=== PATIENT | male | born 2000 | race Caucasian/White ===

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

== ENCOUNTER 2022-07-23 18:36 | Emergency (ER) | payer MEDICAID, SELFPAY ==
--- NOTE | 2022-07-23 18:37 | ED.SOB ---
HPI - SOB/Dyspnea General Chief Complaint: Upper Respiratory Infection Stated Complaint: chest, shortness of breath Time Seen by Provider: 07/23/22 18:37 Source: patient and RN notes reviewed History of Present Illness HPI Narrative: Patient is a 21-year-old male who presents the urgent care with his mother with complaints of shortness of breath and chest discomfort. Patient was seen at the emergency room and given naproxen and lorazepam. Patient was supposed to follow-up with his PCP for refills or start on new medications but has been unable to get in until this Friday. Patient had a full cardiac work-up which was negative. Chest x-ray and CT were both negative. Patient's EKG was normal. Discharge paperwork was presented at the facility. Patient states that he does feel some relief from lorazepam and has been using the naproxen for costochondritis. Patient denies of any new symptom onset. Mother states that he has been under a lot of life stress and has had difficulty with some anxiety. No other acute complaints. No acute distress noted. Patient and mother aware of the plan of care. Some parts of this dictation were generated by voice recognition software and may contain typographical and/or grammatical inaccuracies. Related Data Allergies Allergy/AdvReac Type Severity Reaction Status Date / Time No Known Allergies Allergy Verified 11/06/21 16:47 Review of Systems Review of Systems: CONSTITUTIONAL: Denies fever, chills, or sweats. EYES: Denies visual changes, redness, or discharge. ENT: Denies rhinorrhea, congestion, sore throat, or otalgia. CARDIOVASCULAR: Reports of chest discomfort intermittently RESPIRATORY: Reports of intermittent dyspnea not related to upper respiratory symptoms GASTROINTESTINAL: Denies abdominal pain, nausea, vomiting, or diarrhea. GENITOURINARY: Denies dysuria or hematuria. SKIN: Denies rash or itching. MUSCULOSKELETAL: Denies back pain, joint pain, or myalgia. NEUROLOGIC: Denies headache, numbness, or weakness. All other systems reviewed are negative, except as documented in HPI. [facility]LY [facility] Past Medical History Medical History (Updated 07/23/22 @ 18:58 by LES Simpson) Asthma Hx of migraines Orbital fracture right Seasonal allergies Social History Social History (Updated 11/08/21 @ 11:52 by Maeve Manjarrez NP) Smoking status: Never smoker Alcohol intake: unknown Substance use: unknown Gender identity (if verbalized by the patient): Male Comments At the time of my signature, I reviewed and agree with the nursing past medical, surgical, social, and family history. There is no relevant family history pertinent to the patient complaint. Exam Narrative: GENERAL: This is a well-nourished, well-developed patient, in no apparent distress. HEAD: normocephalic, atraumatic. EYES: PERRL. Sclera clear/white. Vision is grossly intact. EARS: External ears normal NOSE: External nose normal with no obvious nasal discharge, nares without redness, no rhinorrhea. THROAT: Mucous membranes moist NECK: Neck supple CARDIOVASCULAR: Mild reproducible pain to anterior chest with palpation. Regular rate and rhythm without murmurs, gallops, or rubs. RESPIRATORY: Clear to auscultation. Breath sounds equal bilaterally. No wheezes, rales, or rhonchi. SKIN: warm, intact with no suspicious lesions or rash, good texture and turgor. NEURO: awake, alert, and oriented to person, place and time. There were no obvious focal neurologic abnormalities. EXTREMITIES: No clubbing, cyanosis, or edema. Course Course Level of Care: Express Care Visit Vital Signs Vital signs: Vital Signs Temperature 98.3 F 07/23/22 18:42 Pulse Rate 80 07/23/22 18:42 Respiratory Rate 16 07/23/22 18:42 Blood Pressure 128/70 07/23/22 18:42 Pulse Oximetry 100 07/23/22 18:42 Oxygen Delivery Room Air 07/23/22 18:42 Temperature 98.3 F 07/23/22 18:42 Pulse Rate 80 07/23/22 18:42 Respiratory R
[2022-07-23 18:42] VITALS: BP 128/70; PULSE 80; RESP 16; TEMP 36.8; O2SAT 100
== END 2022-07-23 19:00 | disposition home or self-care (01) ==
PROVIDERS: Emergency Provider Nurse Practitioner Family; PCP Nurse Practitioner Family
DX: F41.9 Anxiety disorder, unspecified (principal); J45.909 Unspecified asthma, uncomplicated
CPT/HCPCS: 99213; G0463

== ENCOUNTER 2023-02-06 12:23 | Emergency (ER) | payer OTHER, SELFPAY ==
--- NOTE | 2023-02-06 12:28 | ED.MALEGU ---
HPI - Male Genitourinary General Chief complaint: Urogenital-Male Stated complaint: Burning on end of penis Time Seen by Provider: 02/06/23 12:28 Source: patient and RN notes reviewed History of Present Illness HPI Narrative: Patient is a 22-year-old male who presents to urgent care with complaints of burning at the tip of his penis. Patient states he has had this happen in the past when he uses Dial soap directly to the end of the penis. Patient states that there is now irritation just rubbing on his boxers and his jeans. Patient does have sexual partners and is concerned about STDs. States that he has not been told of any known exposures. Denies any blood in the urine, dysuria, frequency urgency. Denies any penile discharge. No other acute complaints. No acute distress noted. Patient aware of the plan of care. Some parts of this dictation were generated by voice recognition software and may contain typographical and/or grammatical inaccuracies. Related Data Home Medications Medication Instructions Recorded Confirmed No Home Medications 02/06/23 02/06/23 Allergies Allergy/AdvReac Type Severity Reaction Status Date / Time No Known Allergies Allergy Verified 02/06/23 12:41 Review of Systems Review of Systems: CONSTITUTIONAL: Denies fever, chills, or sweats. EYES: Denies visual changes, redness, or discharge. ENT: Denies rhinorrhea, congestion, sore throat, or otalgia. CARDIOVASCULAR: Denies chest pain, palpitations, or edema. RESPIRATORY: Denies cough or dyspnea. GASTROINTESTINAL: Denies abdominal pain, nausea, vomiting, or diarrhea. GENITOURINARY: Denies dysuria or hematuria. Reports of pain to the tip of the penis SKIN: Denies rash or itching. MUSCULOSKELETAL: Denies back pain, joint pain, or myalgia. NEUROLOGIC: Denies headache, numbness, or weakness. All other systems reviewed are negative, except as documented in HPI. FORMERLY [facility] Past Medical History Medical History (Updated 02/06/23 @ 13:12 by LES Simpson) Asthma Hx of migraines Orbital fracture right Seasonal allergies Social History Social History (Updated 11/08/21 @ 11:52 by Maeve Manjarrez NP) Smoking status: Never smoker Alcohol intake: unknown Substance use: unknown Living arrangements: with family Gender identity (if verbalized by the patient): Male Comments At the time of my signature, I reviewed and agree with the nursing past medical, surgical, social, and family history. There is no relevant family history pertinent to the patient complaint. Exam Narrative: GENERAL: This is a well-nourished, well-developed patient, in no apparent distress. HEAD: normocephalic, atraumatic. EYES: PERRL. Sclera clear/white. Vision is grossly intact. EARS: External ears normal NOSE: External nose normal with no obvious nasal discharge, nares without redness, no rhinorrhea. THROAT: Mucous membranes moist, posterior pharynx clear. NECK: Neck supple SKIN: warm, intact with no suspicious lesions or rash, good texture and turgor. : Deferred exam NEURO: awake, alert, and oriented to person, place and time. There were no obvious focal neurologic abnormalities. EXTREMITIES: No clubbing, cyanosis, or edema. Course Course Level of Care: Express Care Visit Vital Signs Vital signs: Vital Signs Temperature 99.0 F 02/06/23 12:32 Pulse Rate 84 02/06/23 12:32 Respiratory Rate 16 02/06/23 12:32 Blood Pressure 139/64 02/06/23 12:32 Pulse Oximetry 99 02/06/23 12:32 Oxygen Delivery Room Air 02/06/23 12:32 Temperature 99.0 F 02/06/23 12:32 Pulse Rate 84 02/06/23 12:32 Respiratory Rate 16 02/06/23 12:32 Blood Pressure 139/64 02/06/23 12:32 Pulse Oximetry 99 02/06/23 12:32 Oxygen Delivery Room Air 02/06/23 12:32 Reviewed MDM - Male Genitourinary MDM Narrative Medical decision making narrative: Reviewed lab results with the patient. He is aware that urinalysis is not indicative of urina
[2023-02-06 12:32] VITALS: BP 139/64; PULSE 84; RESP 16; TEMP 37.2; O2SAT 99
== END 2023-02-06 13:18 | disposition home or self-care (01) ==
PROVIDERS: Emergency Provider Nurse Practitioner Family
DX: R30.0 Dysuria (principal); J45.909 Unspecified asthma, uncomplicated
CPT/HCPCS: 81003; 87491; 87591; 87661; 99213; G0463

== ENCOUNTER 2023-09-02 09:20 | Emergency (ER) | payer BC, SELFPAY ==
[2023-09-02 09:31] VITALS: BP 143/65; PULSE 68; RESP 16; TEMP 36.5; O2SAT 98
--- NOTE | 2023-09-02 09:44 | ED.GENADULT ---
HPI - General Adult General Chief complaint: Upper Respiratory Infection Stated complaint: Cough/Fatigue Source: patient Mode of arrival: ambulatory Limitations: no limitations History of Present Illness HPI narrative: Patient presents for evaluation of cough. Three days ago he developed a hoarse voice and later developed productive cough of brown sputum. He has some mild shortness of breath. No fever, chills, nausea, vomiting, sore throat or otalgia. No recent sick contacts to his knowledge. He is not taking any medications to assist with his symptoms. Related Data Allergies Allergy/AdvReac Type Severity Reaction Status Date / Time No Known Allergies Allergy Verified 02/06/23 12:41 Review of Systems Review of Systems: CONSTITUTIONAL: Denies fever, chills, or sweats. EYES: Denies visual changes, redness, or discharge. ENT: Reports hoarse voice . Denies rhinorrhea, congestion, sore throat, or otalgia. CARDIOVASCULAR: Denies chest pain, palpitations, or edema. RESPIRATORY: Reports productive cough of brown sputum with mild SOB. GASTROINTESTINAL: Denies abdominal pain, nausea, vomiting, or diarrhea. GENITOURINARY: Denies dysuria or hematuria. SKIN: Denies rash or itching. MUSCULOSKELETAL: Denies back pain, joint pain, or myalgia. NEUROLOGIC: Denies headache, numbness, dizziness, or weakness. PSYCHIATRIC: Denies anxiety or depression. [facility] Past Medical History Medical History Asthma Hx of migraines Orbital fracture right Seasonal allergies Surgical History Surgical History (Reviewed 09/02/23 @ 10:16 by Jason Ford [facility], ) No pertinent past surgical history Family History Family History (Reviewed 09/02/23 @ 10:16 by Jason Ford [facility], ) Mother Family history non-contributory Social History Social History (Reviewed 09/02/23 @ 10:16 by Jason Ford [facility], ) Smoking status: Never smoker Alcohol intake: unknown Substance use: unknown Living arrangements: with family Gender identity (if verbalized by the patient): Male Exam Narrative: GENERAL: Well-appearing, well-nourished, and in no acute distress. HEAD: Normocephalic, atraumatic. EYES: PERRLA and EOMI. ENT: Nares clear, no rhinorrhea or epistaxis. Mucous membranes moist. Oropharynx without tonsillar hypertrophy exudate or other lesions. Bilateral TMs pearly chery nonbulging NECK: Supple. No adenopathy or masses. No carotid bruits or JVD CHEST: Clear to auscultation. No respiratory distress. No wheezes rales or rhonchi HEART: Regular rate and rhythm. No murmur heard. Normal peripheral pulses. ABDOMEN: Soft, nontender, nondistended, normal active bowel sounds. EXTREMITIES: Normal range of motion. No edema. SKIN: Warm, dry, no rash. NEURO: No focal deficits. Alert and oriented x3. PSYCH: Normal mood and affect. Course Course Emergency Course: This is a 23-year-old male who presented for evaluation of sick symptoms. COVID, influenza, strep were all negative. Exam is consistent with acute viral syndrome. Will discharge with Mucinex DM. Increase hydration. Follow up with primary provider. Go to the ER for worsening symptoms. Patient in agreement with plan of care. Level of Care: Express Care Visit Vital Signs Vital signs: Vital Signs Temperature 36.5 C 09/02/23 09:31 Pulse Rate 68 09/02/23 09:31 Respiratory Rate 16 09/02/23 09:31 Blood Pressure 143/65 H 09/02/23 09:31 Pulse Oximetry 98 09/02/23 09:31 Oxygen Delivery Room Air 09/02/23 09:31 Temperature 36.5 C 09/02/23 09:31 Pulse Rate 68 09/02/23 09:31 Respiratory Rate 16 09/02/23 09:31 Blood Pressure 143/65 H 09/02/23 09:31 Pulse Oximetry 98 09/02/23 09:31 Oxygen Delivery Room Air 09/02/23 09:31 Medical Decision Making Vital Signs Vital Signs: Vital Signs Temperature 36.5 C 09/02/23 09:31 Pulse Rate 68 09/02/23 09:31 Resp
== END 2023-09-02 10:16 | disposition home or self-care (01) ==
PROVIDERS: Emergency Provider Nurse Practitioner; PCP Nurse Practitioner Family
DX: J06.9 Acute upper respiratory infection, unspecified (principal); Z20.822 Contact with and (suspected) exposure to COVID-19; J45.909 Unspecified asthma, uncomplicated
CPT/HCPCS: 87081; 87426; 87804; 87880; 99213; C9803; G0463

== ENCOUNTER 2023-10-18 13:57 | Emergency (ER) | payer BC, SELFPAY ==
[2023-10-18 14:01] VITALS: BP 146/81; PULSE 95; RESP 16; TEMP 37.2; O2SAT 98
--- NOTE | 2023-10-18 14:08 | ED.GENADULT ---
HPI - General Adult General Chief complaint: Upper Respiratory Infection Stated complaint: Sore Throat Time Seen by Provider: 10/18/23 14:12 Source: patient, RN notes reviewed and old records reviewed Mode of arrival: ambulatory Limitations: no limitations History of Present Illness HPI narrative: 23-year-old male presents to [facility] Care with complaint of sore throat for 1 week patient also states has slight cough and sinus congestion. Patient denies shortness of breath, weakness, chest pain, vomiting, dizzines MD complaint: sore throat Onset (ago): day(s) (7) Related Data Allergies Allergy/AdvReac Type Severity Reaction Status Date / Time No Known Allergies Allergy Verified 10/18/23 14:09 Review of Systems Constitutional: Constitutional: Reports no additional constitutional complaints, Denies body ache(s), Denies chills, Denies fever(s) and Denies headache(s) Eyes: Eyes: Reports no additional eye complaints ENT: Reports as per HPI, Reports nasal congestion and Reports sore throat Cardiovascular: Cardiovascular: Reports no additional cardiovascular complaints Respiratory: Respiratory: Reports as per HPI, Reports cough, Denies pain with cough and Denies dyspnea Gastrointestinal: Gastrointestinal: Reports no additional gastrointestinal complaints Neurologic: Reports system reviewed and no additional complaints, except as documented PMFSH Past Medical History Medical History Asthma Hx of migraines Orbital fracture right Seasonal allergies Surgical History Surgical History No pertinent past surgical history Family History Family History Mother Family history non-contributory Social History Social History Smoking status: Never smoker Alcohol intake: unknown Substance use: unknown Living arrangements: with family Gender identity (if verbalized by the patient): Male Comments At the time of my signature, I reviewed and agree with the nursing past medical, surgical, social, and family history. There is no relevant family history pertinent to the patient complaint. Exam Const: General: cooperative, healthy appearing, no acute distress and well nourished Nutritional Appearance: well nourished Orientation/consciousness: patient oriented x3 Limitations: no limitations HENMT: Head: normal to inspection and normocephalic Ears: external ears normal, TM's normal bilaterally, mastoids normal and Abnormal EAC present Face/Nose/Sinus: normal facial exam Face and sinus: normal facial exam Mouth: Yes Normal oral and palatal mucosa present, Yes oropharynx normal and Yes moist mucous membranes Throat: abnormal tonsil bilateral erythema, exudates and hypertrophy, no peritonsillar masses, posterior oropharynx abnormal erythema and exudates and no uvular edema Eyes: General: appearance normal, both eyes and all related structures Sclera: sclerae normal Pupils: Equal, round and reactive pupils present Resp: Effort & Inspection: normal respiratory effort, able to speak in complete sentences, no audible wheezes, no cough, no respiratory distress and no retractions Auscultation: clear to auscultation bilaterally, no crackles, no rales, no rhonchi and no wheezes Cardio: Rate: regular rate Rhythm: regular rhythm Skin: General skin exam: normal color and no rashes or lesions noted Neuro: General: patient oriented x3 Cranial nerves: Yes Equal, round and reactive pupils present Psych: Appearance: grossly normal Course Course Emergency Course: Some parts of this dictation were generated by voice recognition software and may contain typographical and/or grammatical inaccuracies. Level of Care: Express Care Visit Vital Signs Vital signs: Vital Signs Temperature 99 F 10/18/23 1
== END 2023-10-18 14:30 | disposition home or self-care (01) ==
PROVIDERS: Emergency Provider Registered Nurse; PCP Nurse Practitioner Family
DX: J02.0 Streptococcal pharyngitis (principal); J45.909 Unspecified asthma, uncomplicated
CPT/HCPCS: 87081; 87880; 99213; G0463

== ENCOUNTER 2023-11-15 18:49 | Emergency (ER) | payer BC, SELFPAY ==
[2023-11-15 18:55] VITALS: BP 141/67; PULSE 100; RESP 16; TEMP 36.1; O2SAT 97
--- NOTE | 2023-11-15 19:35 | ED.GENADULT ---
HPI - General Adult General Chief complaint: Upper Respiratory Infection Stated complaint: Cough/Sore Throat/Fever Source: patient Mode of arrival: ambulatory Limitations: no limitations History of Present Illness HPI narrative: Patient presents for evaluation of sick symptoms that started yesterday. Symptoms include subjective fever, chills, headache, sore throat productive cough brown sputum, pleuritic chest pain and nausea. No vomiting, diarrhea or SOB. No recent sick contacts to his knowledge. He took mucinex for his symptoms. He does not smoke. Related Data Allergies Allergy/AdvReac Type Severity Reaction Status Date / Time No Known Allergies Allergy Verified 11/15/23 19:04 Review of Systems Review of Systems: CONSTITUTIONAL: Reports fever and chills. EYES: Denies visual changes, redness, or discharge. ENT: Reports sore throat and sinus congestion CARDIOVASCULAR: Reports pleuritic chest pain. Denies chest pain otherwise. Denies palpitations, or edema. RESPIRATORY: Reports cough. Denies SOB. GASTROINTESTINAL: Reports nausea. Denies abdominal pain, vomiting, or diarrhea. GENITOURINARY: Denies dysuria or hematuria. SKIN: Denies rash or itching. MUSCULOSKELETAL: Reports generalized body aches. NEUROLOGIC:Reports headache. Denies numbness, dizziness, or weakness. PSYCHIATRIC: Denies anxiety or depression. PMFSH Past Medical History Medical History Asthma Hx of migraines Orbital fracture right Seasonal allergies Surgical History Surgical History No pertinent past surgical history Family History Family History Mother Family history non-contributory Social History Social History Smoking status: Never smoker Alcohol intake: unknown Substance use: unknown Living arrangements: with family Gender identity (if verbalized by the patient): Male Exam Narrative: GENERAL: Well-appearing, well-nourished, and in no acute distress. HEAD: Normocephalic, atraumatic. EYES: PERRLA and EOMI. ENT: Nares clear, no rhinorrhea or epistaxis. Mucous membranes moist. Oropharynx without tonsillar hypertrophy exudate or other lesions. Bilateral TMs pearly chery nonbulging NECK: Supple. No adenopathy or masses. No carotid bruits or JVD CHEST: Clear to auscultation. No respiratory distress. No wheezes rales or rhonchi HEART: Regular rate and rhythm. No murmur heard. Normal peripheral pulses. ABDOMEN: Soft, nontender, nondistended, normal active bowel sounds. EXTREMITIES: Normal range of motion. No edema. SKIN: Warm, dry, no rash. NEURO: No focal deficits. Alert and oriented x3. PSYCH: Normal mood and affect. Course Course Emergency Course: This is a 23-year-old male who presented for evaluation of sick symptoms since yesterday. Influenza A positive. Will treat with Tamiflu. Zofran and Tessalon for symptom management. Increase hydration. Follow up with primary provider. Go to the ER for worsening symptoms. Patient in agreement with plan of care. Level of Care: Express Care Visit Vital Signs Vital signs: Vital Signs Temperature 36.1 C L 11/15/23 18:55 Pulse Rate 100 11/15/23 18:55 Respiratory Rate 16 11/15/23 18:55 Blood Pressure 141/67 H 11/15/23 18:55 Pulse Oximetry 97 11/15/23 18:55 Oxygen Delivery Room Air 11/15/23 18:55 Temperature 36.1 C L 11/15/23 18:55 Pulse Rate 100 11/15/23 18:55 Respiratory Rate 16 11/15/23 18:55 Blood Pressure 141/67 H 11/15/23 18:55 Pulse Oximetry 97 11/15/23 18:55 Oxygen Delivery Room Air 11/15/23 18:55 Medical Decision Making Vital Signs Vital Signs: Vital Signs Temperature 36.1 C L 11/15/23 18:55 Pulse Rate 100 11/15/23 18:55 Respiratory Rate 16 11/15/23 18:55
== END 2023-11-15 19:35 | disposition home or self-care (01) ==
PROVIDERS: Emergency Provider Nurse Practitioner; PCP Nurse Practitioner Family
DX: J10.1 Influenza due to other identified influenza virus with other respiratory manifestations (principal); J02.0 Streptococcal pharyngitis; B95.0 Streptococcus, group A, as the cause of diseases classified elsewhere; Z20.822 Contact with and (suspected) exposure to COVID-19; J45.909 Unspecified asthma, uncomplicated
CPT/HCPCS: 87081; 87147; 87426; 87804; 87880; 99213; C9803; G0463

== ENCOUNTER 2024-08-04 08:06 | Outpatient (CLI) | payer BC, SELFPAY ==
[2024-08-04 08:42] LABS: Hematocrit 42.3 % (42.0-52.0); Mean Corpuscular HGB Conc 35.5 g/dl (32-36); Mean Corpuscular Hemoglobin 31.4 pg (26-34); Mean Corpuscular Volume 88.7 fl (80-100); Platelet Count Result 224 k/mm3 (150-375); Red Blood Count 4.77 M/mm3 (4.6-6.20); Red Cell Distribution Width 11.5 % (11.5-14.5); White Blood Count 5.2 K/mm3 (4.5-10.0)
[2024-08-04 08:59] LABS: Alanine Aminotransferase 24 U/L (6-50); Albumin Level 4.3 g/dL (3.5-5.1); Alkaline Phosphatase 46 U/L (38-126); Anion Gap 8 mmol/L (4-12); Aspartate Amino Transferase 15 U/L (17-59); Bilirubin,Total 0.7 mg/dL (0.2-1.3); Blood Urea Nitrogen 11 mg/dL (9-20); Calcium 9.2 mg/dL (8.4-10.2); Carbon Dioxide 28 mmol/L (22-30); Chloride 103 mmol/L (98-107); Cholesterol 106 mg/dL (0-200); Estimated Glomerular Filt Rate > 60; Glucose 91 mg/dL (65-110); HDL Direct 43 mg/dL; Potassium 4.3 mmol/L (3.4-5.0); Sodium 139 mmol/L (137-145); Triglycerides 59 mg/dL (<150)
[2024-08-04 09:10] LABS: LDL Cholesterol Direct 49 mg/dL
[2024-08-04 09:17] LABS: Vitamin D 25 Hydroxy 57.6 ng/mL
== END 2024-08-04 08:07 | disposition home or self-care (01) ==
PROVIDERS: PCP Emergency Medicine; Visit Provider Emergency Medicine
DX: Z13.0 Encounter for screening for diseases of the blood and blood-forming organs and certain disorders involving the immune mechanism (principal); Z13.220 Encounter for screening for lipoid disorders; Z13.21 Encounter for screening for nutritional disorder
CPT/HCPCS: 36415; 80053; 80061; 82306; 85027

== ENCOUNTER 2024-10-13 13:10 | Emergency (ER) | payer BC, SELFPAY ==
[2024-10-13 13:19] VITALS: BP 129/66; PULSE 97; RESP 20; TEMP 37.4; O2SAT 96
--- NOTE | 2024-10-13 13:29 | ED_ITS ---
HPI - URI/Sore Throat General Chief Complaint: Upper Respiratory Infection Stated Complaint: cough/chest congestion/sinus Time Seen by Provider: 10/13/24 13:26 Source: patient and RN notes reviewed Mode of arrival: ambulatory Limitations: no limitations History of Present Illness HPI Narrative: 24-year-old male presents with concern for cough, sore throat, postnasal drainage, body ache, headaches, chills, sweats for 5 days. He denies known sick contacts. He took Alejandra NARVAEZ elicited complaint: cough and sore throat Related Data Allergies Allergy/AdvReac Type Severity Reaction Status Date / Time No Known Allergies Allergy Verified 07/06/24 09:08 Review of Systems Review of Systems: CONSTITUTIONAL: Reports malaise, chills, sweats. Denies fever. EYES: Denies visual changes, redness, or discharge. ENT: Reports rhinorrhea, congestion, and sore throat. CARDIOVASCULAR: Denies chest pain, palpitations, or edema. RESPIRATORY: Reports cough. Denies dyspnea. GASTROINTESTINAL: Denies abdominal pain, nausea, vomiting, diarrhea SKIN: Denies rash or itching. MUSCULOSKELETAL: Reports myalgia. NEUROLOGIC: Reports headache. All systems reviewed & are unremarkable except as noted in HPI and below PMFSH Past Medical History Medical History Asthma Hx of migraines Orbital fracture right Seasonal allergies Surgical History Surgical History No pertinent past surgical history Family History Family History Mother Family history non-contributory Social History Social History Smoking status: Current every day smoker Tobacco type: e-cigarettes/vaping Alcohol intake: current Drinks per week: 3 Alcohol use details: beer Substance use: never Do You Feel Safe in your Home?: Yes Lack of Transportation: No Lack of Food: Never True Current Housing: I Have Housing Concerned About Future Housing: No Difficulty Paying Gas/Electric Bills: No Difficulty Paying for Meds: No Currently Unemployed: No Education: High School Diploma/GED Difficulty w/ Childcare or Family Care: No Living arrangements: with family Gender identity (if verbalized by the patient): Male Comments At time of signature, agree with nursing past medical, surgical, social and family history. There is no relevant family history pertinent to the presenting complaint Exam Narrative: GENERAL: Well-appearing, well-nourished, and in no acute distress. HEAD: Normocephalic EYES: PERRLA, conjunctivae clear ENT: Nares clear. Mucous membranes moist. TM pearly chery with sharp light reflex bilaterally; no tragal tenderness. Oropharynx not erythematous without lesions. Tonsils not enlarged and without exudate, no drooling, no hoarseness, no trismus, uvula midline. NECK: Supple. No lymphadenopathy CHEST: Clear to auscultation, breath sounds equal. No wheezing, rhonchi, rales, or stridor. No respiratory distress, speaks in full sentences. HEART: Regular rate and rhythm. No murmur heard. SKIN: Warm, dry, no rash. NEURO: Alert and oriented x3. PSYCH: Normal mood and affect Course Course Emergency Course: Patient is aware of diagnosis, understands and agrees to treatment plan. Anticipatory guidance given. Patient agrees to follow-up as directed and is aware of reasons to seek care at the emergency department. Portions of this record may have been created with voice recognition software Level of Care: Express Care Visit Vital Signs Vital signs: Vital Signs Temperature 99.3 F 10/13/24 13:19 Pulse Rate 97 10/13/24 13:19 Respiratory Rate 20 10/13/24 13:19 Blood Pressure 129/66 10/13/24 13:19 Pulse Oximetry 96 10/13/24 13:19 Oxygen Delivery Room Air 10/13/24 13:19 Temperature 99.3 F 10/13/24 13:19 Pulse Rate 97 10/13/24 13:19 Respiratory Rate 20 10/13/24 13:19 Blood Pressure 129/66 10/13/24 13:19 Pulse Oximetry 96 10/13/24 13:19 Oxygen Delivery Room Air 10/13/24 13:19 Reviewed. MDM - URI/Sore Throat MDM Narrative Medical decision making narrative: Differential diagnosis considered: Arshad virus, strep pharyngitis, allergic rhinitis, upper respiratory tract infection, sinusitis, rhinosinusitis, nasopharyngitis. viral pharyngitis, otitis media, otitis externa, pneumonia, bronchitis, viral cough syndrome, viral syndrome, and influenza. Exam findings show no acute concerns or changes; patient is non-toxic appearing and is in no distress. Patient is appropriate for outpatient treatment and follow-up. Lab Data Attestation: I reviewed the patient's lab results. Critical Care Time Critical Care Time Critical Care Time: No Discharge Plan Discharge Clinical Impression: Upper respiratory infection Patient Disposition: Home, Self-Care Condition: Stable Instructions: Upper Respiratory Infection (ED) Additional Instructions: Your rapid strep swab was negative today at [facility]. A throat culture will be sent to the laboratory for further testing. If the test is positive, you will receive a phone call within 48 hours and an appropriate antibiotic will be initiated at that time. Your symptoms are likely due to a viral illness, which is not treated with antibiotics. Viral symptoms can be present for up to a few weeks. -Alternate Tylenol and Motrin per package directions for fever or pain. -Antihistamine medication such as Benadryl at night and Zyrtec during the day can help improve symptoms. -Eat and drink things that are easy to swallow, like tea or soup, or popsicles to suck on. -Oral rinses such as: Salt water gargles and/or may use topical anesthetic (eg. Chloraseptic spray) or lozenges to relieve dryness or throat pain). -Frequent hand washing or hand drafter (cad) electrical is one of the best ways to prevent spread of infection. -Follow up with primary care provider in 2-3 days if condition is not improving; or seek ER visit if you have trouble breathing, cannot drink enough fluids, have muffled voice, difficulty opening your mouth, or severe swelling. Prescriptions: New pseudoephedrine HCl [12 Hour Decongestant] 120 mg tablet extended release 120 mg PO Q12H PRN (Reason: nasal congestion) Qty: 20 0RF ipratropium bromide 21 mcg (0.03 %) spray,non-aerosol 2 spray NASAL TID PRN (Reason: nasal drainage) Qty: 30 0RF Rx Instructions: administer into each nostril Follow-up/Referrals: Otis Rhodes MD [Primary Care Provider] - Stand Alone Forms: Work/School Release IP Time of Disposition: 13:47
[2024-10-13 13:46] LABS: EDSTREPNEGPOS1 Negative (Negative)
== END 2024-10-13 13:57 | disposition home or self-care (01) ==
PROVIDERS: Emergency Provider Nurse Practitioner; PCP Emergency Medicine
DX: J06.9 Acute upper respiratory infection, unspecified (principal); F17.290 Nicotine dependence, other tobacco product, uncomplicated; J45.909 Unspecified asthma, uncomplicated
CPT/HCPCS: 87081; 87880; 99213; G0463

== ENCOUNTER 2025-02-10 07:45 | Outpatient (CLI) | payer OTHER, SELFPAY ==
--- OUTSIDE RECORDS SUMMARY | 2025-02-10 07:53 | XMS_ITS | Referral Summary ---
Author Organization [facility] Address [address] [place] [address] Care Team Providers Care Tractor Engine Assembler Name Role Phone Unknown, Notinfile Unavailable Unavailable Otis Rhodes MD Primary Care Provide r Allergies Active Allergy Reactions Criticality Noted Date Comments No Known Allergies Other (See comments) Low Reaction: Medications LORazepam (Ativan) 0.5 mg tablet Take 0.5-1 tablets (0.25-0.5 mg total) by mouth 3 (three) times a day as needed for anxiety or sleep Collaborating physician Efrem Hay MD 10 tablet 2 Active ketorolac (TORADOL) 10 mg tablet Take 1 tablet (10 mg total) by mouth every 6 (six) hours as needed for pain 20 tablet 4 Active Active Problems Problem Noted Date Diagnosed Date Chest wall pain 07/18/2022 Acute costochondritis 07/18/2022 Situational anxiety 07/18/2022 Immunizations Immunization Administration Dates Next Due DTaP 12/08/2003, 3,2002,10/11 DTaP, Unspecified 08/05/2007 HPV, Quadrivalent 01/16/2015,06/07/2014 Hep A, Pediatric 06/07/2014,08/05/2007 Hep B / HiB 03/02/2003,2002 Hep B, Adolescent or Pediatric 2002,2001 HiB 12/08/2003,2002 IPV 08/05/2007, 4,2002,10/11 Influenza, Quadrivalent, Spl it, Preservative Free, Intramuscular 08/23/2020,11/20/2018 Influenza, Split 01/21/2011,08/04/2009 MMR 08/05/2007,08/29/2003 Meningococcal MCV4P (Menactra) 11/20/2018,2013 Pneumococcal Conjugate 7-Valent 12/08/19 04,06/07/2003,2002,10/11 Tdap 06/07/2014 Varicella 08/05/2007,12/08/2003 Social History Tobacco Use Types Packs/Day Years Used Date Smoking Tobacco: Never Smokeless Tobacco: Never Alcohol Use Standard Drinks/Week Comments Never 0 (1 standard drink = 0.6 oz pur e alcohol) AUDIT-C Answer Date Recorded Q1: How often do you have a drink containing alc ohol? Never 08/23/2020 Average Number of Drinks Not on file 020 Frequency of Binge Drinking Not on file 08/10 PHQ-2 Answer Date Recorded PHQ-2 Total Score (If total score is 3 or more points, staff should administer the PHQ-9) 0 08/23/2020 Personal Safety Answer Date Recorded Have you ever been in or are you currently in a harmful physical or emotional relationship or is someone making you feel afraid or unsafe? Denies 03/21/2024 Sex and Gender Information Value Date Recorded Sex Assigned at Not on file Legal Sex Male 5:58 AM [employer] Gender Identity Not on file Sexual Orientation Not on file Last Filed Vital Signs Vital Sign Reading Time Taken Comments Blood Pressure 158/92 03/21/2024 7:55 PM CDT Pulse 83 03/21/2024 7:55 PM CDT Temperature 36.9 C (98.5 F) 03/21/2024 1:17 PM CDT Respiratory Rate 16 03/21/2024 7:55 PM CDT Oxygen Saturation 99% 03/21/2024 7:55 PM CDT Inhaled Oxygen Concentration - - Weight 77.1 kg (170 lb) 03/21/2024 1:17 PM CDT Height 182.9 cm (6') 03/21/2024 1:17 PM CDT Body Mass Index 23.06 03/21/2024 1:17 PM CDT Plan of Treatment Not on file Insurance [facility] [place] [employer] [place] [facility] MEDICAID Care Teams Tractor Engine Assembler Relationship Specialty Start Date End Date Otis Rhodes MD [address] [place] [address] PCP - General Emergency Medicine 03/21/24 Unknown, Notinfile 08/16/18
--- OUTSIDE RECORDS SUMMARY | 2025-02-10 07:53 | XMS_ITS | Data Portability ---
[facility] Address [address] [place] [address] Assessment No assessment recorded. Plan of Treatment Reminders Order Date Submit Date Provider Last Modified By Organization Details Last Modified Time Details Appointments None recorded. Lab rapid strep group A, throat 2019 020 [facility] In-Office Order, Internal Use Only DO Not Attach Compendium DO Not Attach Compendium, Do Not Delete/merge, [id number] 11:07:20 rapid strep group A, throat 2018 019 [email or web address] In-Office Order, Internal Use Only DO Not Attach Compendium DO Not Attach Compendium, Do Not Delete/merge, [id number] 10:43:05 rapid strep group A, throat 2018 019 [email or web address] In-Office Order, Internal Use Only DO Not Attach Compendium DO Not Attach Compendium, Do Not Delete/merge, [id number] 11:43:34 Referral None recorded. Procedures None recorded. Surgeries None recorded. Imaging None recorded. Medication Orders fluticasone propionate 50 mcg/actuati on nasal spray,suspe nsion 2019 020 [facility][id number], [address], [place], [place], [phone], 0 15:10:45 Augmentin 875 mg-125 mg tablet 2018 019 [facility] #[id number], [address], [place], [place], [phone], 0 10:48:50 fluticasone propionate 50 mcg/actuati on nasal spray,suspe nsion 2018 019 [facility] #[id number], [address], [place], [place], [phone], 0 15:10:45 fluticasone propionate 50 mcg/actuati on nasal spray,suspe nsion 2018 019 [facility] #[id number], [address], [place], [place], [phone], 0 15:10:45 Patient TargetsNo targets recorded. Patient Instructions Encounter Date Encounter Id Patient Instructions Last Modified By Organization Details Last Modified Time 08/25/2019 [id number] Acute Sinusitis in Teens: Care Instructions [email or web address] Not available 08/25/2019 10:43:05 11/16/2019 [id number] Considering More Physical Activity for Your Child csuhre Not available 11/16/2019 11:07:20 Learning About How to Make Healthy Changes in Your Child's Diet [email or web address] Not available 11/16/2019 11:07:20 08/03/2020 [id number] nausea and vomiting in teens: care instructions [email or web address] Not available 08/03/2020 15:14:15 Reason for Referral None Reported. Results Created Date Observation Date Name Description Value Unit Range Abnormal Flag Note LastModifiedBy Organization Detail LastModifiedTime 12/30/1912/30/2018 rapid strep group A, throa t Strep negati ve Not Available In-Office Order Internal Use Only DO Not Attach Compendium DO Not Attach Compendium, Do Not Delete/merge, [id number] 12/30/2018 11:19:29 08/25/20 19 08/25/2019 rapid strep group A, throa t Strep negati ve Not Available In-Office Order Internal Use Only DO Not Attach Compendium DO Not Attach Compendium, Do Not Delete/merge, [id number] 08/25/2019 10:17:39 11/16/19 20 11/16/2019 rapid strep group A, throa t Strep negati ve Not Available In-Office Order Internal Use Only DO Not Attach Compendium DO Not Attach Compendium, Do Not Delete/merge, [id number] 11/16/2019 10:51:45 Result Notes None recorded. Problems No Known Problems Procedures Surgical History Date Name Laterality Status Provider Name and Address Organization Details Recorded Time Unlisted px dentalvlr strux completed Johana Fraser MA [place] - [facility] 11/20/2018 14:06:20 Imaging Results None recorded. Procedure Notes None recorded. Medical Equipment None Reported. Allergies No known drug allergies Medications Name Sig Start Date Stop Date Status Note LastModified by Organization Details LastModified Time Augmentin 875 mg-125 mg tablet Take 1 tablet every 12 hours by oral route for 10 days. 11/16 completed Not Available Not Available Not Available benzonatate 200 mg capsule 11/20 completed Not Available Not Available Not Available permethrin 5 % topical cream 11/20 completed Not Available Not Available Not Available Tamiflu 75 mg capsule Take 1 capsule twice a day by oral route for 5 days. 08/03 completed Not Available Not Available Not Available polymyxin B sulfate 10,000 unit-trimet hoprim 1 mg/mL eye drops 11/20 completed Not Available Not Available Not Available Zaditor 0.025 % (0.035 %) eye drops 11/20 completed Not Available Not Available Not Available fluticasone propionate 50 mcg/actuati on nasal spray,suspe nsion [place] 1 spray every day by intranasa l route. 08/03 completed Not Available Not Available Not Available naproxen 500 mg tablet 11/20 completed Not Available Not Available Not Available loratadine 08/03 completed Not Available Not Available Not Available ibuprofen 08/03 completed Not Available Not Available Not Available Zyrtec 11/16 completed Not Available Not Available Not Available Vitals Date Recorded Heart rate Respiratory rate Body height Body mass index (BMI) Body mass index (BMI) Percentile per age and sex Body weight Body temperature Systolic blood pressure Diastolic blood pressure Provider Name and Address Organization Details Last Updated DateTime 9 68 /min 16 /min 179.71 cm 21.9 kg/m2 65 % 58587.1 1 g 97.8 [degF] 128 mm[Hg] 68 mm[Hg] Annika Beatty MA [facility] 9 13:59:55 Date Recorded Heart rate Respiratory rate Body temperature Body height Body mass index (BMI) Body mass index (BMI) Percentile per age and sex Body weight Systolic blood pressure Diastolic blood pressure Provider Name and Address Organization Details Last Updated DateTime 9 64 /min 16 /min 97.6 [degF] 180.34 cm 21.3 kg/m2 57 % 12144.6 3 g 112 mm[Hg] 74 mm[Hg] Johana Fraser MA [facility] 9 11:21:27 Date Recorded Body height Body mass index (BMI) Percentile per age and sex Body mass index (BMI) Body weight Heart rate Respiratory rate Body temperature Systolic blood pressure Diastolic blood pressure Provider Name and Address Organization Details Last Updated DateTime 9 181.61 cm 45 % 20.9 kg/m2 66347.0 4 g 76 /min 16 /min 98.7 [degF] 110 mm[Hg] 78 mm[Hg] Renea millsDAVID [facility] 9 10:12:33 Date Recorded Body temperature Provider Name a wa Address Organization Details Last Updated DateTime 11/16/2019 98.5 [degF] Dawna TIFFANY RamirezReba [facility] 2019 10:47:47 Date Recorded Body height Body mass index (BMI) Body mass index (BMI) Percentile per age and sex Body weight Heart rate Respiratory rate Systolic blood pressure Diastolic blood pressure Provider Name and Address Organization Details Last Updated DateTime 0 180.98 cm 21.5 kg/m2 51 % 59147.8 2 g 84 /min 16 /min 118 mm[Hg] 68 mm[Hg] Johana Fraser MA [facility] 0 10:52:17 Social History Question Answer Notes LastModified by Organizat ion Details LastModified Time Tobacco Smoking Status Never Smoker Johana Fraser MA null, [facility] 11/20/2018 14:04:18 Animal Exposure? Yes [email or web address] Information not available 11/20/2018 What Is Your Level Of Caffeine Consumption? Occasional [email or web address] Information not available 11/20/2018 What Type Of Diet Are You Following? REGULAR [email or web address] Information not available 11/20/2018 Do You Or Have You Ever Used E-cigarettes Or Vape? Never Used Electronic Cigarettes Information not available 11/16/2019 Are There Any Guns Present In Your Home? Yes Locked Up Information not available 11/20/2018 What Is Your Home Situation? Mother Lives With Mom, Sister [email or web address] Information not available 11/20/2018 Do You Use Insect Repellent Routinely? Yes [email or web address] Information not available 11/20/2018 Car Seat Type Or Seat Belt? Seat Belt [email or web address] Information not available 11/20/2018 Parent Involvement? Both Parents Involved [email or web address] Information not available 11/20/2018 Riding In Car Front Seat? Yes [email or web address] Information not available 11/20/2018 What Was The Date Of Your Most Recent Tobacco Screening? 11/16/2019 Information not available 11/16/2019 What Is Your Parents' Marital Status? [email or web address] Information not available 11/20/2018 What Is The Name Of Your School? [employer] [email or web address] Information not available 11/20/2018 Do You Have Any Siblings? 1 Sister [email or web address] Information not available 11/20/2018 Do You Have Smoke And Carbon Monoxide Detectors In Your Home? Yes [email or web address] Information not available 11/20/2018 Are You Passively Exposed To Smoke? Yes [email or web address] Information not available 11/20/2018 Do You Or Have You Ever Used Smokeless Tobacco? Never Used Smokeless Tobacco Information not available 11/16/2019 What Types Of Sporting Activities Do You Participate In? Football, Basketball, Track [email or web address] Information not available 11/20/2018 Do You Use Sunscreen Routinely? Yes [email or web address] Information not available 11/20/2018 Year In School 12 [email or web address] Informatio n not available 08/03/2020 Sex: Unknown Functional Status Question Answer Note LastModified by Organization D etails LastModified Time What is your exercise level? Heavy Information not available 11/20/2018 Mental Status None recorded. Family History Relationship Description Onset Age of this Age Resolved Age Notes LastModified by Organization Details LastModified Time Father Asthma [email or web address] Not available 0 11/20/2018 14:04:00 Paternal Grandfather Diabetes mellitus [email or web address] Not available 2018 14:04:12 Medical History Condition Response Blood Diseases N Ear or Hearing Problems N Thyroid Problems N Depression N Developmental or Behavioral Disorders N Skin Problems N Premature N Anemia N Constipation N Anxiety Disorder N Diabetes N Muscle, Joint, or Bone Problems N Bedwetting N Vision or Eye Problems N Heart Problems/Murmur N Seizures/Epilepsy N Head Injury/Concussion N Cancer N Asthma N Allergies N ADHD N Bladder or Kidney Problems N Headaches N Chicken Pox N Autism Spectrum Disorder (ASD) N Immunizations Vaccine Type Date Status Note Provider Nam e and Address Organization Details Recorded Time DTaP, unspecified formulation 2 completed Johana [place], [place] [facility] 11/20/2018 13:35:47 DTaP, unspecified formulation 3 completed [place] [facility] 11/20/2018 13:35:51 DTaP, unspecified formulation 3 completed [place] [facility] 11/20/2018 13:35:56 DTaP, unspecified formulation 4 completed [place] [facility] 11/20/2018 13:36:21 DTaP, unspecified formulation 7 completed DAV[place] [facility] 11/20/2018 13:36:25 Hib-Hep B 2 [place] [facility] 11/20/2018 13:36:34 Hib-Hep B 3 completed [place] [facility] 11/20/2018 13:36:38 Hib, unspecified formulation 3 completed [place] [facility] 11/20/2018 13:36:48 Hib, unspecified formulation 4 completed [place] [facility] 11/20/2018 13:36:53 Hep A, ped/adol, 2 dose 7 completed [place] [facility] 11/20/2018 13:37:03 Hep A, ped/adol, 2 dose 4 completed [place] [facility] 11/20/2018 13:37:08 Hep B, adolescent or pediatric 2 completed [place] [facility] 11/20/2018 13:37:34 Hep B, adolescent or pediatric 3 completed [place] [facility] 11/20/2018 13:37:38 HPV, unspecified formulation 4 completed [place] [facility] 11/20/2018 13:38:42 HPV, unspecified formulation 5 completed [place] [facility] 11/20/2018 13:38:46 influenza, unspecified formulation 9 completed [place] [facility] 11/20/2018 13:38:59 influenza, unspecified formulation 1 completed [place] [facility] 11/20/2018 13:39:03 MMR 3 completed [place] [facility] 11/20/2018 13:39:12 MMR 7 completed [place] [facility] 11/20/2018 13:39:16 meningococcal MCV4, unspecified formulation 4 completed [place] [facility] 11/20/2018 13:39:26 pneumococcal conjugate PCV 7 2 completed [place] [facility] 11/20/2018 13:39:37 pneumococcal conjugate PCV 7 3 completed [place] [facility] 11/20/2018 13:39:42 pneumococcal conjugate PCV 7 3 completed [place] [facility] 11/20/2018 13:40:37 pneumococcal conjugate PCV 7 4 completed [place] [facility] 11/20/2018 13:40:41 IPV 2 completed [place] [facility] 11/20/2018 13:40:50 IPV 3 completed [place] [facility] 11/20/2018 13:40:54 IPV 4 completed [place] [facility] 11/20/2018 13:41:01 IPV 7 [place] [facility] 11/20/2018 13:41:06 Tdap 4 completed [place] [facility] 11/20/2018 13:41:20 varicella 4 [place] [facility] 11/20/2018 13:41:31 varicella 7 [place] [facility] 11/20/2018 13:41:35 meningococcal MCV4P 9 completed Not Available [facility] 11/27/2019 02:48:27 Influenza, split virus, quadrivalent, PF 9 completed Not Available [facility] 11/27/2019 02:37:02 Past Encounters Encounter ID Performer Location Encounter Start Date Encounter Closed Date Diagnosis/Indication Diagnosis SNOMED-CT Code Diagnosis ICD10 Code Diagnosis Note [id number] Ace Rubio MD [facility] (Peds) [address] [place] [address] 11/20/2018 13:41:17 11/23/2018 12:44:01 Well child 027808815 Z00.129 discussed routine adolescent care, safety, school performanc e, healthy weight with diet and exercise, etc [id number] [facility] [address] [place] [address] 12/30/2018 11:15:30 12/31/2018 10:14:22 Upper respiratory infection 15949659 J06.9 rest, tylenol prn, humidifier , warm salt water gargles, etc [id number] [facility] [address] [place] [address] 08/25/2019 09:53:17 08/26/2019 14:56:19 Acute sinusitis 70787578 J01.90 [id number] [facility] [address] [place] [address] 11/16/2019 10:42:17 11/17/2019 10:04:03 Diet education 43188618 Z71.3 Exercises education, guidance, and counseling 862021694 Z71.82 Upper resp iratory infection 86959467 J06.9 rest, tylenol prn, humidifier , warm salt water gargles, etc [id number] MD Molly Villaseñor (Peds) [address] [facility] [place] [address] 08/03/2020 12:11:17 08/04/2020 09:39:50 Vomiting 669933287 R11.10 BRAT diet. likely secondary to food. reassuranc e. Health Concerns Section Related Observation LastModified by Organization Detai ls LastModified Time None Recorded Concern Status LastModified by Organization Details LastModified Time None Recorded Advance Directives Directive None Recorded Payers Encounter Date Sequence Insurance Name Policy Number Policy Jett Covered Member ID Jett Member ID Guarantor Name 11/20/2018 1 [facility] PRIOR TO 05/10/2021 (MEDICAID REPLACEMENT - HMO) [id number] 12/30/2018 1 [facility] PRIOR TO 05/10/2021 (MEDICAID REPLACEMENT - HMO) Kg Vizcarra [id number] [facility] 08/25/2019 1 [place] [facility] [id number] [facility] 11/16/2019 1 [place] [facility] [id number] [facility] 08/03/2020 1 [place] [facility] [id number] [facility] Notes Date Note Type Note Provider Name a wa Address Organization Details Recorded Time 11/20/2018 text/html No concerns, needing school med form filled out for school for zyrtec and ibuprofen for headaches PRN. Former pt of Dr Padilla. Plays baseball. John Rubio MD Attn: Accounting,[address] [facility], [place], [address], [facility] 11/20/2018 14:25:50 12/30/2018 text/html C/o of St with cough and congestion for the past 24 hours. no fever. No abd pain. no v/d. No known sick contacts. John Rubio MD Attn: Accounting,[address] [facility], [place], [address], [facility] 12/30/2018 11:43:52 08/25/2019 text/html C/o of cough and congestion for the past week with ST. no abd pain. no v/d. + headaches John Rubio MD Attn: Accounting,[address] [facility], [place], [address], [facility] 08/25/2019 10:43:22 11/16/2019 text/html c/o cough and congestion for the past [address] No fever. No v/d. No abd pain. c/o mild SOB. John Rubio MD Attn: Accounting,[address] [facility], [place], [address], [facility] 11/16/2019 11:07:55 08/03/2020 text/html c/o: mom states patient had fish and pizza last night for dinner- vomited after eating last pm and early this am. Mom thinks patient had food poisoning. Needing note to return to school. NO fever. no diarrhea. seems fine now per mother. no known sick contacts. no recent travel. John Rubio MD Attn: Accounting,[address] [facility], [place], [address], [facility] 08/03/2020 15:14:33
--- OUTSIDE RECORDS SUMMARY | 2025-02-10 07:53 | XMS_ITS | Clinical Summary ---
Author Organization [facility] Address [address] [place] [address] Care Team Providers Care Tongue Lining Stitcher Name Role Phone Unknown, Notinfile Unavailable Unavailable [...] 7-Valent 12/08/19 04,06/07/2003,2002,10/11 Tdap 06/07/2014 Varicella 08/05/2007,12/08/2003 Surgical History Surgery Date Site/Laterality Comments DENTAL SURGERY 2004 DENTAL SURGERY Medical History Medical History Date Comments No pertinent past medical history Family History Medical History Relation Name Comments Hypertension Father Diabetes Other 1 Family history of diabetes mellitus - (Added by TW Conv) Hypertension Other 2 Family history of hypertension - (Added by TW Conv) Allergies Other 3 Environmental a llergies - (Added by TW Conv) Asthma Other 4 Family history of asthma - (Added by TW Conv) Relation Name Status Comments Father Alive Mother Alive Other 1 Other 2 Other 3 Other 4 Social History Tobacco Use Types Packs/Day Years [...] on file Legal Sex Male 5:58 AM [employer] Gender Identity Not on file Sexual Orientation Not on file Obstetrics History Last Filed Vital Signs Vital Sign Reading [...] 03/21/2024 1:17 PM CDT Plan of Treatment Health Maintenance Due Date Last Done Comments Hepatitis C Screening 2002 Meningococcal B Vaccine (1 o f 2 - Standard) 2018 Depression Screening 08/23/2021 08/23/2020 Regular Well Visit/Exam 18-64 08/23/2021 08/23/2020 DTaP/Tdap/Td Vaccine (7 - Td or Tdap) 06/07/2024 06/07/2014, 08/05/2007, 12/08/2003, Additional history exists Influenza Vaccine (#1) 2024 0, 11/20/2018, 01/21/2011, Additional history exists Hepatitis B Screening Completed 03/02/2003 , 2002, 2002, Additional history exists Pneumococcal vaccine <65 Completed 004, 06/07/2003, 2002, Additional history exists Varicella Vaccines Completed 08/05/2007, 12/08/2003 HPV Vaccines Completed 01/16/2015, 06/07/2014 Insurance IDPA IDMD BLUE [employer] ID BLUE [facility] Care Teams Tongue Lining Stitcher Relationship Specialty Start Date End Date Otis Rhodes MD [address] [place] [address] PCP - General Emergency Medicine 03/21/24 Unknown, Notinfile 08/16/18
--- OUTSIDE RECORDS SUMMARY | 2025-02-10 07:53 | XMS_ITS | Clinical Summary ---
Author Organization [facility] Address [address] [place] [address] Phone Care Team Providers Care Rate Engineer Name Role Phone Unavailable Unavailable Unavailable Reason for Visit and Chief Complaint NEW PATIENT VISIT Plan of Treatment No Plan of Treatment Recorded Assessments Includes: Assessments from this encounter No Assessments Recorded Medical Equipment - Implanted Devices Includes: Current Devices No Medical Equipment Recorded Medications Administered Includes: Administered Medications from this encounter No Administered Medications Recorded Results Includes: Results discussed during this encounter No Results Recorded For Specified Dates History of Present Illness Includes: History of Present Illness from this encounter No History of Present Illness Recorded Social History No Social History Recorded - Smoking Status Unknown Medical History Includes: Medical History addressed during this encounter No Medical History Recorded Family History Includes: Family History addressed during this encounter No Family History Recorded Review of Systems Includes: Review of Systems from this encounter No Review of Systems Recorded Mental Status Includes: Mental Status from this encounter No Mental Status Recorded Functional Status Includes: Functional Status from this encounter No Functional Status Recorded Physical Exam Includes: Physical Exam from this encounter No Physical Exam Recorded Encounters Encounter Provider Location Date Check-In Time Check- Out Time Diagnosis NEW PATIENT VISIT [facility] 0 10:00AM 11:59PM Clinical Notes Includes: Clinical Notes from this encounter No Clinical Notes Recorded
--- OUTSIDE RECORDS SUMMARY | 2025-02-10 07:53 | XMS_ITS | Data Portability ---
Author Organization [facility] [employer] [employer] Address [address] [place] [address] Assessment Encounter Date Assessment Date Assessment LastModified by Organization Details LastModified Time 09/26/2022 09/26/2022 Medication Changes Decreasing Propranolol to 0.5 tablet (10 mg) TID x 7 days then BID x 7 days then qD x 7 days. Signs and symptoms of when to seek further care reviewed with patient/caregive r/family/facilit y staff. Patient to follow up with primary care provider or return to clinic for any worsening signs and symptoms. Always present to ER or Urgent Care with any progression of/alarming symptoms, significant changes in symptoms or any concerning or urgent matters. Patient/caregive r/family/facilit y staff verbalized agreement and understanding of treatment plan. F/U 4 weeks - telemedicine, sooner if needed [email or web address] Not available 09/26/2022 12:41:29 10/25/2022 10/25/2022 Medication Changes D/C Lexapro 10 mg Lexapro 5 mg qD x 30 days and then stop Signs and symptoms of when to seek further care reviewed with patient/caregive r/family/facilit y staff. Patient to follow up with primary care provider or return to clinic for any worsening signs and symptoms. Always present to ER or Urgent Care with any progression of/alarming symptoms, significant changes in symptoms or any concerning or urgent matters. Patient/caregive r/family/facilit y staff verbalized agreement and understanding of treatment plan. F/U 6 months, sooner if needed [email or web address] Not available 10/25/2022 12:40:43 03/20/2023 03/20/2023 Medication Changes labs to eval levels counseled on decreasing caffeine intake and the use of preworkout powder given the increasing content of caffeine. Pt v/u. Signs and symptoms of when to seek further care reviewed with patient/caregive r/family/facilit y staff. Patient to follow up with primary care provider or return to clinic for any worsening signs and symptoms. Always present to ER or Urgent Care with any progression of/alarming symptoms, significant changes in symptoms or any concerning or urgent matters. Patient/caregive r/family/facilit y staff verbalized agreement and understanding of treatment plan. F/U 1 year, sooner if needed My total encounter time was minutes which was spent in the activities documented in the note. This includes time spent prior to the visit, performing a medically appropriate examination with evaluation, and after the visit in direct care of the patient (history and exam; ordering prescriptions/la bs/imaging/home health/therapy/s pecialists; communicating results to patient and/or other relative individuals; counseling/educa ting patient; documenting clinical information in patient s chart; coordination of care for the patient). This time does not include time spent in any separately reportable services. Not available 03/20/2023 15:05:19 08/20/2023 08/20/2023 Medication Changes Signs and symptoms of when to seek further care reviewed with patient/caregive r/family/facilit y staff. Patient to follow up with primary care provider or return to clinic for any worsening signs and symptoms. Always present to ER or Urgent Care with any progression of/alarming symptoms, significant changes in symptoms or any concerning or urgent matters. Patient/caregive r/family/facilit y staff verbalized agreement and understanding of treatment plan. F/U 1 year, sooner if needed [email or web address] Not available 08/20/2023 12:33:00 11/24/2023 11/24/2023 Medication Changes Flonase as directed labs to recheck elevated levels. Mammogram given and along with u/s order for R breast to further evaluate the mass palpated to r/o possible cyst, benign mass, vs possible cancerous mass. Provided patient with ENT Same day information over in [place], [place] to contact and see them as it will be quicker doing such vs sending referral to local ENT and quite possibly waiting months to be seen and evaluated. Patient to contact walk in ENT. Signs and symptoms of when to seek further care reviewed with patient/caregive r/family/facilit y staff. Patient to follow up with primary care provider or return to clinic for any worsening signs and symptoms. Always present to ER or Urgent Care with any progression of/alarming symptoms, significant changes in symptoms or any concerning or urgent matters. Patient/caregive r/family/facilit y staff verbalized agreement and understanding of treatment plan. F/U as directed, sooner if needed My total encounter time was 45 minutes which was spent in the activities documented in the note. This includes time spent prior to the visit, performing a medically appropriate examination with evaluation, and after the visit in direct care of the patient (history and exam; ordering prescriptions/la bs/imaging/home health/therapy/s pecialists; communicating results to patient and/or other relative individuals; counseling/educa ting patient; documenting clinical information in patient s chart; coordination of care for the patient). This time does not include time spent in any separately reportable services. [email or web address] Not available 11/24/2023 19:55:05 Plan of Treatment Reminders Order Date Submit Date Provider Last Modified By Organization Details Last Modified Time Details Appointments None recorded . Lab CBC w/ auto diff 2023 024 [email or web address], [id number] [place] [address], [address], 4 09:01:24 CMP, serum or plasma 2023 024 [facility] [place] [facility], [id number] [place] [address], [address], 4 07:30:34 CBC w/ auto diff 2022 023 [facility] [place] [facility], [address] [place], [address], 3 10:56:01 CMP, serum or plasma 2022 023 [email or web address] [place] [facility], [address] [place], [address], 3 11:17:36 TSH, serum or plasma 2022 023 [email or web address], [address] [address] [facility] [place], [address], 3 16:58:38 lipid panel, serum 2022 023 [facility], [address] [address] [facility] [place], [address], 3 11:17:34 magnesiu m, serum or plasma 2022 023 [facility], [address] [place] [address] [place], [address], 3 11:17:35 vitamin B12, serum 2022 023 [email or web address] [facility], [id number] [place] [address] [place], [address], 3 16:58:38 folate, serum 2022 023 [email or web address] [facility], [address] [place] [address] [place], [address], 3 16:58:38 iron, serum 2022 023 [facility], [address] [place] [address], [address], 3 11:17:35 Referral None recorded . Procedures None recorded . Surgeries None recorded . [facility] ([facility] [address] [facility] [place], [address], 4 19:43:25 MAMMO, diagnost ic, digital, unilater al 2023 024 [facility] (Radiology), [address] [facility] , [place], [address], 4 19:43:25 Medication Orders fluticas one propiona te 50 mcg/actu ation nasal spray,valverde spension 2023 024 [facility], [address], [place], [place], [id number], 4 15:57:21 escitalo pram 5 mg tablet [email or web address] [facility] [address] [facility], [address], [place], [place], [id number], 3 14:22:32 escitalo pram 10 mg tablet 2021 022 [facility]12768, [address], [place], [place], [id number], 2 12:44:22 Patient TargetsNo targets recorded. Patient Instructions Encounter Date Encounter Id Patient Instructions Last Modified By Organization Details Last Modified Time 03/20/2023 [id number] learning about caffeine [email or web address] Not available 03/20/2023 15:05:20 08/20/2023 [id number] learning about dietary guidelines [email or web address] Not available 08/20/2023 12:33:44 resistance training with free weights: [email or web address] Not available 08/20/2023 12:33:44 Reason for Referral None Reported. Results Created Date Observation Date Name Description Value Unit Range Abnormal Flag Note LastModifiedBy Organization Detail LastModifiedTime 11/25/19 24 11/25/2023 COMPR EHENS ALRIEZA METAB OLIC PANEL glucose 95 mg/dL 65-99 normal Fasti ng refer ence inter jorge alberto Not Available [facility] [address] [place], [address], 11/25/2023 07:30:34 11/25/19 24 11/25/2023 COMPR EHENS ALIREZA METAB OLIC PANEL urea nitrogen (BUN) 20 mg/dL 7-25 normal Not Available [address], [address], 11/25/2023 07:30:34 11/25/19 24 11/25/2023 COMPR EHENS ALIREZA METAB OLIC PANEL creatinine 1.02 mg/dL 0.60-1 .24 normal Not Available [address], [address], 11/25/2023 07:30:34 11/25/19 24 11/25/2023 COMPR EHENS ALIREZA METAB OLIC PANEL eGFR 107 mL/mi n/1.7 3m2 > or = 60 normal Not Available [address], [address], 11/25/2023 07:30:34 11/25/19 24 11/25/2023 COMPR EHENS ALIREZA METAB OLIC PANEL BUN/creatini ne ratio SEE NOTE: (calc ) 6-22 Not Repor daniel: BUN and Creat inine are withi n refer ence range . Not Available [address], [address], 11/25/2023 07:30:34 11/25/19 24 11/25/2023 COMPR EHENS ALIREZA METAB OLIC PANEL sodium 138 mmol/ L 135-14 6 normal Not Available [address], [address], 11/25/2023 07:30:34 11/25/19 24 11/25/2023 COMPR EHENS ALIREZA METAB OLIC PANEL potassium 4.0 mmol/ L 3.5-5. 3 normal Not Available [address], [address], 11/25/2023 07:30:34 11/25/19 24 11/25/2023 COMPR EHENS ALIREZA METAB OLIC PANEL chloride 105 mmol/ L 98-110 normal Not Available [address] [place], [address], 11/25/2023 07:30:34 11/25/19 24 11/25/2023 COMPR EHENS ALIREZA METAB OLIC PANEL carbon dioxide 28 mmol/ L 20-32 normal Not Available [facility] [address], [address], 11/25/2023 07:30:34 11/25/19 24 11/25/2023 COMPR EHENS ALIREZA METAB OLIC PANEL calcium 9.4 mg/dL 8.6-10 .3 normal Not Available [facility] [address], [address], 11/25/2023 07:30:34 11/25/19 24 11/25/2023 COMPR EHENS ALIREZA METAB OLIC PANEL protein, total 6.9 g/dL 6.1-8. 1 normal Not Available [address], [address], 11/25/2023 07:30:34 11/25/19 24 11/25/2023 COMPR EHENS ALIREZA METAB OLIC PANEL albumin 4.4 g/dL 3.6-5. 1 normal Not Available [address], [address], 11/25/2023 07:30:34 11/25/19 24 11/25/2023 COMPR EHENS ALIREZA METAB OLIC PANEL globulin 2.5 g/dL_ (calc ) 1.9-3. 7 normal Not Available [facility] [address], [address], 11/25/2023 07:30:34 11/25/19 24 11/25/2023 COMPR EHENS ALIREZA METAB OLIC PANEL albumin/glob ulin ratio 1.8 (calc ) 1.0-2. 5 normal Not Available [facility] [address], [address], 11/25/2023 07:30:34 11/25/19 24 11/25/2023 COMPR EHENS ALIREZA METAB OLIC PANEL bilirubin, total 0.4 mg/dL 0.2-1. 2 normal Not Available [address], [address], 11/25/2023 07:30:34 11/25/19 24 11/25/2023 COMPR EHENS ALIREZA METAB OLIC PANEL alkaline phosphatase 58 U/L 36-130 normal Not Available [facility] [address], [address], 11/25/2023 07:30:34 11/25/19 24 11/25/2023 COMPR EHENS ALIREZA METAB OLIC PANEL AST 11 U/L 10-40 normal Not Available [address], [address], 11/25/2023 07:30:34 11/25/19 24 11/25/2023 COMPR EHENS ALIREZA METAB OLIC PANEL ALT 50 U/L 9-46 high Not Available [address], [address], 11/25/2023 07:30:34 03/20/20 23 03/21/2023 CBC (INCL UDES DIFF/ PLT) white blood cell count 6.9 thous and/u L 3.8-10 .8 normal Not Available [address], [address], 03/21/2023 10:56:01 03/20/20 23 03/21/2023 CBC (INCL UDES DIFF/ PLT) red blood cell count 5.30 idania on/uL 4.20-5 .80 normal Not Available [address], [address], 03/21/2023 10:56:01 03/20/20 23 03/21/2023 CBC (INCL UDES DIFF/ PLT) hemoglobin 16.1 g/dL 13.2-1 7.1 normal Not Available [facility] [address], [address], 03/21/2023 10:56:01 03/20/20 23 03/21/2023 CBC (INCL UDES DIFF/ PLT) hematocrit 48.2 % 38.5-5 0.0 normal Not Available [facility] [address], [address], 03/21/2023 10:56:01 03/20/20 23 03/21/2023 CBC (INCL UDES DIFF/ PLT) MCV 90.9 fL 80.0-1 00.0 normal Not Available [address], [address], 03/21/2023 10:56:01 03/20/20 23 03/21/2023 CBC (INCL UDES DIFF/ PLT) MCH 30.4 pg 27.0-3 3.0 normal Not Available [address], [address], 03/21/2023 10:56:01 03/20/20 23 03/21/2023 CBC (INCL UDES DIFF/ PLT) MCHC 33.4 g/dL 32.0-3 6.0 normal Not Available [address], [address], 03/21/2023 10:56:01 03/20/20 23 03/21/2023 CBC (INCL UDES DIFF/ PLT) RDW 12.0 % 11.0-1 5.0 normal Not Available [facility] [address], [address], 03/21/2023 10:56:01 03/20/20 23 03/21/2023 CBC (INCL UDES DIFF/ PLT) platelet count 302 thous and/u L 140-40 0 normal Not Available [facility] [address], [address], 03/21/2023 10:56:01 03/20/20 23 03/21/2023 CBC (INCL UDES DIFF/ PLT) MPV 9.1 fL 7.5-12 .5 normal Not Available [address], [address], 03/21/2023 10:56:01 03/20/20 23 03/21/2023 CBC (INCL UDES DIFF/ PLT) absolute neutrophils 4706 cells /uL 1500-7 800 normal Not Available [address], [address], 03/21/2023 10:56:01 03/20/20 23 03/21/2023 CBC (INCL UDES DIFF/ PLT) absolute lymphocytes 911 cells /uL 850-39 00 normal Not Available [address], [address], 03/21/2023 10:56:01 03/20/20 23 03/21/2023 CBC (INCL UDES DIFF/ PLT) absolute monocytes 690 cells /uL 200-95 0 normal Not Available [facility] [address], [address], 03/21/2023 10:56:01 03/20/20 23 03/21/2023 CBC (INCL UDES DIFF/ PLT) absolute eosinophils 531 cells /uL 15-500 high Not Available [address], [address], 03/21/2023 10:56:01 03/20/20 23 03/21/2023 CBC (INCL UDES DIFF/ PLT) absolute basophils 62 cells /uL 0-200 normal Not Available [facility] [address], [address], 03/21/2023 10:56:01 03/20/20 23 03/21/2023 CBC (INCL UDES DIFF/ PLT) neutrophils 68.2 % normal Not Available [address] [place], [address], 03/21/2023 10:56:01 03/20/20 23 03/21/2023 CBC (INCL UDES DIFF/ PLT) lymphocytes 13.2 % normal Not Available [facility] [address], [address], 03/21/2023 10:56:01 03/20/20 23 03/21/2023 CBC (INCL UDES DIFF/ PLT) monocytes 10.0 % normal Not Available [facility] [address], [address], 03/21/2023 10:56:01 03/20/20 23 03/21/2023 CBC (INCL UDES DIFF/ PLT) eosinophils 7.7 % normal Not Available [facility] [address], [address], 03/21/2023 10:56:01 03/20/20 23 03/21/2023 CBC (INCL UDES DIFF/ PLT) basophils 0.9 % normal Not Available [facility] [address], [address], 03/21/2023 10:56:01 03/20/20 23 03/21/2023 LIPID PANEL , STAND SAMANTHA cholesterol, total 146 mg/dL <200 normal Not Available [facility] [address], [address], 03/21/2023 16:44:49 03/20/20 23 03/21/2023 LIPID PANEL , STAND SAMANTHA HDL cholesterol 24 mg/dL > or = 40 low Not Available [facility] [address], [address], 03/21/2023 16:44:49 03/20/20 23 03/21/2023 LIPID PANEL , STAND SAMANTHA triglyceride s 106 mg/dL <150 normal Not Available [facility] [address], [address], 03/21/2023 16:44:49 03/20/20 23 03/21/2023 LIPID PANEL , STAND SAMANTHA LDL-choleste rol 102 mg/dL _(shawna c) high Refer ence range : <100 Doc able range <100 mg/dL for prima ry preve ntion ; <70 mg/dL for patie nts with CHD or diabe tic patie nts with > or = 2 CHD risk facto rs. LDL-C is now calcu lated using the Dionne n-Hop kins calcu latgiancarlo n, which is a valid ated novel metho d provi ding zohaib r accur acy than the Fried rodrick equat ion in the estim ation of LDL-C . Dionne light SS et al. NABEEL. 2013; 310(1 9): 2061- 2068 (http ://ed ucati on.Qu [employer]. com/f aq/FA Q164) Not Available [facility] [place] [address] [place], [address], 03/21/2023 16:44:49 03/20/20 23 03/21/2023 LIPID PANEL , STAND SAMANTHA chol/HDLC ratio 6.1 (calc ) <5.0 high Not Available [facility] [place] [address] [place], [address], 03/21/2023 16:44:49 03/20/20 23 03/21/2023 LIPID PANEL , STAND SAMANTHA non HDL cholesterol 122 mg/dL _(shawna c) <130 normal For patie nts with diabe ishmael plus 1 major ASCVD risk facto r, treat ing to a non-H DL-C goal of <100 mg/dL (LDL- C of <70 mg/dL ) is deisy vaughan optio n. Not Available [facility] [address] [place], [address], 03/21/2023 16:44:49 03/20/20 23 03/21/2023 IRON, TOTAL iron, total 82 mcg/d L 50-195 normal Not Available [facility] [place] [address] [address], [place], [address], 03/21/2023 16:44:49 03/20/20 23 03/21/2023 MAGNE SIUM magnesium 2.0 mg/dL 1.5-2. 5 normal Not Available [address], [address], 03/21/2023 16:44:50 03/20/20 23 03/21/2023 COMPR EHENS ALIREZA METAB OLIC PANEL glucose 94 mg/dL 65-99 normal Fasti ng refer ence inter jorge alberto Not Available [address], [address], 03/21/2023 16:44:50 03/20/20 23 03/21/2023 COMPR EHENS ALIREZA METAB OLIC PANEL urea nitrogen (BUN) 13 mg/dL 7-25 normal Not Available [address], [address], 03/21/2023 16:44:50 03/20/20 23 03/21/2023 COMPR EHENS ALIREZA METAB OLIC PANEL creatinine 1.49 mg/dL 0.60-1 .24 high Not Available [address], [address], 03/21/2023 16:44:50 03/20/20 23 03/21/2023 COMPR EHENS ALIREZA METAB OLIC PANEL eGFR 68 mL/mi n/1.7 3m2 > or = 60 normal The eGFR is based on the CKD-E PI 2020 equat ion. To calcu late the new eGFR from a previ ous Creat inine or Cysta milly C resul t, go to https ://georgia valladares.asha kaplan/angelica burns/ kdoqi /gfr% 5Fcal culat or Not Available [address], [address], 03/21/2023 16:44:50 03/20/20 23 03/21/2023 COMPR EHENS ALIREZA METAB OLIC PANEL BUN/creatini ne ratio 9 (calc ) 6-22 normal Not Available [address], [address], 03/21/2023 16:44:50 03/20/20 23 03/21/2023 COMPR EHENS ALIREZA METAB OLIC PANEL sodium 142 mmol/ L 135-14 6 normal Not Available [address], [address], 03/21/2023 16:44:50 03/20/20 23 03/21/2023 COMPR EHENS ALIREZA METAB OLIC PANEL potassium 4.0 mmol/ L 3.5-5. 3 normal Not Available [address], [address], 03/21/2023 16:44:50 03/20/20 23 03/21/2023 COMPR EHENS ALIREZA METAB OLIC PANEL chloride 104 mmol/ L 98-110 normal Not Available [address], [address], 03/21/2023 16:44:50 03/20/20 23 03/21/2023 COMPR EHENS ALIREZA METAB OLIC PANEL carbon dioxide 28 mmol/ L 20-32 normal Not Available [address], [address], 03/21/2023 16:44:50 03/20/20 23 03/21/2023 COMPR EHENS ALIREZA METAB OLIC PANEL calcium 9.3 mg/dL 8.6-10 .3 normal Not Available [address], [address], 03/21/2023 16:44:50 03/20/20 23 03/21/2023 COMPR EHENS ALIREZA METAB OLIC PANEL protein, total 7.3 g/dL 6.1-8. 1 normal Not Available [address] [place], [address], 03/21/2023 16:44:50 03/20/20 23 03/21/2023 COMPR EHENS ALIREZA METAB OLIC PANEL albumin 4.2 g/dL 3.6-5. 1 normal Not Available [address], [address], 03/21/2023 16:44:50 03/20/20 23 03/21/2023 COMPR EHENS ALIREZA METAB OLIC PANEL globulin 3.1 g/dL_ (calc ) 1.9-3. 7 normal Not Available [facility] [address], [address], 03/21/2023 16:44:50 03/20/20 23 03/21/2023 COMPR EHENS ALIREZA METAB OLIC PANEL albumin/glob ulin ratio 1.4 (calc ) 1.0-2. 5 normal Not Available [address], [address], 03/21/2023 16:44:50 03/20/20 23 03/21/2023 COMPR EHENS ALIREZA METAB OLIC PANEL bilirubin, total 0.6 mg/dL 0.2-1. 2 normal Not Available [address], [address], 03/21/2023 16:44:50 03/20/20 23 03/21/2023 COMPR EHENS ALIREZA METAB OLIC PANEL alkaline phosphatase 49 U/L 36-130 normal Not Available [facility] [place] [address] [place], [address], 03/21/2023 16:44:50 03/20/20 23 03/21/2023 COMPR EHENS ALIREZA METAB OLIC PANEL AST 8 U/L 10-40 low Not Available [facility] [address], [address], 03/21/2023 16:44:50 03/20/20 23 03/21/2023 COMPR EHENS ALIREZA METAB OLIC PANEL ALT 20 U/L 9-46 normal Not Available [address], [address], 03/21/2023 16:44:50 03/20/20 23 03/22/2023 FOLAT E, SERUM folate, serum 9.5 NG/mL normal Refer ence Range Low: <3.4 Borde rline : 3.4-5 .4 Tanisha l: >5.4 Not Available [place] [address] [place], [address], 03/22/2023 05:28:50 03/20/20 23 03/22/2023 VITAM IN B12 vitamin B12 647 pg/mL 200-11 00 normal Not Available [address], [address], 03/22/2023 05:28:51 03/20/20 23 03/22/2023 TSH W/REF LUCILA TO FT4 TSH w/reflex to FT4 1.35 mIU/L 0.40-4 .50 normal Not Available [address], [address], 03/22/2023 03:50:21 10/18/20 23 10/18/2023 XR, chest , 2 view No observ ation record ed. [email or web address] [address] [place], [address], 10/20/2023 09:52:17 01/08/20 24 01/08/2024 MAMMO , diagn ostic , digit al, bilat eral No observ ation record ed. [address] [place], [address], 02/06/2024 10:20:05 Result Notes None recorded. Problems Name Problem SNOMED Code Status Onset Date Resolution Date Notes Provider Name and Address Organization Details Recorded Time Anxiety 70064601 Active 2021 Crystal L. Stone, DOG GROOMER-BC, PMHNP-BC [address] , [place], [address], [facility] 4 15:40:50 Acute stress disorder 43885163 Active 2021 OR[place]O MichaelP-BC, PMHNP-BC [address] , [facility] [place], [address], [facility] 4 15:40:50 Elevated blood-pressure reading without diagnosis of hypertension 278165863 Active 2022 Meri Saldana DOG GROOMER-BC, PMHNP-BC [address] , [facility], [address], [facility] 4 15:40:50 Problem Notes None recorded. Procedures Surgical History Date Name Laterality Status Provider Name and Address Organization Details Recorded Time Unlisted px dentalvlr strux completed Felice Nick [facility] 02/22/2022 16:39:15 Imaging Results Imaging Date Name Status LastModified by Organiz ation Details LastModified Time 10/18/2023 XR, chest, 2 view completed [address] [place], [address], 10/20/2023 09:52:17 01/08/2024 MAMMO, diagnostic, digital, bilateral completed [email or web address] [address] [place], [address], 02/06/2024 10:20:05 Procedure Notes None recorded. Medical Equipment None Reported. Allergies No known drug allergies Medications Name Sig Start Date Stop Date Status Note LastModified by Organization Details LastModified Time amoxicillin 500 mg capsule TAKE 1 CAPSULE BY MOUTH EVERY 12 HOURS FOR 10 DAYS active Not Available Not Available No t Available naproxen 375 mg tablet Take 1 tablet twice a day by oral route with meals. 07/26 completed Not Available Not Available Not Available ibuprofen 800 mg tablet TAKE 1 TABLET BY MOUTH THREE TIMES DAILY NEEDED FOR PAIN 07/26 completed Not Available Not Available Not Available propranolol 10 mg tablet TAKE 1 TABLET BY MOUTH THREE TIMES DAILY 09/30 /2022 completed Not Available Not Available Not Available amoxicillin 875 mg tablet TAKE 1 TABLET BY MOUTH EVERY 12 HOURS UNTIL ALL TAKEN active Not Available Not Available No t Available lorazepam 0.5 mg tablet TAKE 1/2 to 1 TABLET BY MOUTH THREE TIMES DAILY NEEDED FOR ANXIETY OR SLEEP X 10 PILLS 07/26 completed Not Available Not Available Not Available benzonatate 100 mg capsule TAKE 1 CAPSULE BY MOUTH THREE TIMES DAILY NEEDED FOR COUGH active Not Available Not Available No t Available oseltamivir 75 mg capsule TAKE 1 CAPSULE BY MOUTH EVERY 12 HOURS FOR 5 DAYS active Not Available Not Available No t Available hydroxyzine HCl 25 mg tablet TAKE 1 TABLET BY MOUTH THREE TIMES DAILY NEEDED FOR ANXIETY 07/26 completed Not Available Not Available Not Available propranolol 20 mg tablet TAKE 1 TABLET BY MOUTH THREE TIMES DAILY active Not Available Not Available No t Available ondansetron 4 mg disintegrat ing tablet DISSOLVE 1 TABLET ON THE TONGUE EVERY 8 HOURS NEEDED FOR NAUSEA OR VOMITING active Not Available Not Available No t Available fluticasone propionate 50 mcg/actuati on nasal spray,suspe nsion SHAKE LIQUID AND USE 2 SPRAYS IN EACH NOSTRIL EVERY DAY AT BEDTIME active Not Available Not Available No t Available amoxicillin 875 mg-potassiu m clavulanate 125 mg tablet TAKE 1 TABLET BY MOUTH EVERY 12 HOURS FOR 10 DAYS 07/23 completed Not Available Not Available Not Available escitalopra m 10 mg tablet TAKE 1 TABLET BY MOUTH EVERY DAY active Not Available Not Available No t Available escitalopra m 5 mg tablet TAKE 1 TABLET BY MOUTH EVERY DAY 03/20 completed Not Available Not Available Not Available albuterol sulf 90 mcg/actuati on breath activated powder inhaler,sen sor Inhale 2 puffs by inhalatio n route as needed. 07/26 completed Not Available Not Available Not Available Vitals Date Recorded Pain severity - 0-10 verbal numeric rating [Score] - Reported Provider Name and Address Organization Details Last Updated DateTime 09/26/2022 0 Alicia VALDES - [facility] 09/26/2022 12:21:30 Date Recorded Body height Body mass index (BMI) Percentile per age and sex Body mass index (BMI) Body weight Heart rate Respiratory rate Oxygen saturation Oxygen saturation in Arterial blood by Pulse oximetry Pain severity - 0-10 verbal numeric rating [Score] - Reported Body temperature Systolic blood pressure Diastolic blood pressure Provider Name and Address Organization Details Last Updated DateTime 3 180.34 cm 77 % 26.1 kg/m2 42482.2 1 g 89 /min 20 /min 98 % 98 % 0 98.1 [degF] 138 mm[Hg] 80 mm[Hg] Patriciamatthew Hernandez [facility] 3 14:31:11 Date Recorded Systolic blood pressure Diastolic blood pressure Provider Name and Address Organization Details Last Updated DateTime 03/20/2023 122 mm[Hg] 78 mm[Hg] LES Michael-BC, PMHNP-BC [address] [place], [address], [facility] 03/20/2023 14:40:27 Date Recorded Body height Heart rate Respiratory rate Oxygen saturation Oxygen saturation in Arterial blood by Pulse oximetry Body temperature Pain severity - 0-10 verbal numeric rating [Score] - Reported Body mass index (BMI) Body weight Systolic blood pressure Diastolic blood pressure Provider Name and Address Organization Details Last Updated DateTime 3 180.34 cm 73 /min 18 /min 97 % 97 % 98.3 [degF] 0 24.3 kg/m2 91301.8 7 g 120 mm[Hg] 78 mm[Hg] Torin Albright [facility] 3 12:14:50 Date Recorded Body height Heart rate Respiratory rate Oxygen saturation Oxygen saturation in Arterial blood by Pulse oximetry Body temperature Pain severity - 0-10 verbal numeric rating [Score] - Reported Systolic blood pressure Diastolic blood pressure Provider Name and Address Organization Details Last Updated DateTime 4 180.34 cm 77 /min 18 /min 96 % 96 % 97.8 [degF] 0 136 mm[Hg] 78 mm[Hg] Torin Albright [facility] 4 15:05:21 Date Recorded Body mass index (BMI) Body weight Provider Name and Address Organization Details Last Updated DateTime 11/24/2023 22.5 kg/m2 66547.37 g LES Michael-BC, PMHNP-BC [address] [place], [address], [facility] 11/24/2023 17:52:19 Social History Question Answer Notes LastModified by Organizat ion Details LastModified Time Tobacco Smoking Status Never Smoker Felice Sandoval oconnor [facility] 02/22/2022 11:54:33 Do You Have An Advance Directive? No [email or web address] Information not available 02/22/2022 What Is Your Level Of Alcohol Consumption? Occasional [email or web address] Information not available 02/22/2022 How Many Years Have You Consumed Alcohol? 1 Information not available 02/22/2022 Are You Currently Sexually Active With Anyone Who Has Traveled (within The Last 12 Weeks) To A Zika-affected Area? No [email or web address] Information not available 02/22/2022 Do You Wear A Helmet When Biking? Yes [email or web address] Information not available 02/22/2022 Are You Blind Or Do You Have Difficulty Seeing? No [email or web address] Information not available 02/22/2022 What Is Your Level Of Caffeine Consumption? Moderate Pre Workout [email or web address] Information not available 02/22/2022 What Type Of Moulder Operator Do You Use? None [email or web address] Information not available 02/22/2022 What Is Your Code Status? Full Code [email or web address] Information not available 02/22/2022 In The 14 Days Before Symptom Onset, Have You Had Close Contact With A Laboratory-confir med COVID-19 While That Case Was Ill? No Information not available 02/22/2022 In The 14 Days Before Symptom Onset, Have You Had Close Contact With A Person Who Is Under Investigation For COVID-19 While That Person Was Ill? No [email or web address] Information not available 02/22/2022 Have You Been To An Area Known To Be High Risk For COVID-19? No [email or web address] Information not available 02/22/2022 Are You Currently Employed? Yes [email or web address] Information not available 02/22/2022 Are You Deaf Or Do You Have Serious Difficulty Hearing? No [email or web address] Information not available 02/22/2022 What Type Of Diet Are You Following? REGULAR [email or web address] Information not available 02/22/2022 Have You Processed Blood Or Body Fluids From An Ebola Virus Disease Patient Without Appropriate PPE? No [email or web address] Information not available 02/22/2022 Do You Reside In Or Have You Traveled To An Area Where Ebola Virus Transmission Is Active? No [email or web address] Information not available 02/22/2022 Do You Or Have You Ever Used E-cigarettes Or Vape? Current User Of Electronic Cigarettes Information not available 02/22/2022 What Is The Highest Grade Or Level Of School You Have Completed Or The Highest Degree You Have Received? 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 6 [email or web address] Information not available 02/22/2022 Have There Been Any Changes To Your Family Or Social Situation? No [email or web address] Information no t available 02/22/2022 What Is The Fluoride Status Of Your Home? Unknown [email or web address] Information not available 02/22/2022 Are There Any Guns Present In Your Home? Yes [email or web address] Information not available 02/22/2022 Which Of Your Hands Is Dominant? Right [email or web address] Information not available 02/22/2022 Have You Recently Or Are You Planning To Travel To An Area With Zika Virus? No [email or web address] Information not available 02/22/2022 Do You Use Insect Repellent Routinely? No [email or web address] Information not available 02/22/2022 Do You Have A Medical Power Of [employer]? No [email or web address] Information not available 02/22/2022 What Was The Date Of Your Most Recent Tobacco Screening? 11/24/2023 Information not available 11/24/2023 How Many Children Do You Have? 0 [email or web address] Information not available 02/22/2022 Have You Ever Been Counseled For Unhealthy Alcohol Use? No [email or web address] Information not available 11/24/2023 Do You Have Any Pets? Yes [email or web address] Information not available 02/22/2022 Do You Use Protection During Sex? Usually [email or web address] Information not available 02/22/2022 What Is Your Relationship Status? Single [email or web address] Information not available 02/22/2022 Do You Use Your Seat Belt Or Car Seat Routinely? Yes [email or web address] Information not available 02/22/2022 Are You Sexually Active? Yes Information not available 02/22/2022 Do You Have Smoke And Carbon Monoxide Detectors In Your Home? Yes [email or web address] Information not available 02/22/2022 Are You Passively Exposed To Smoke? Yes Information no t available 02/22/2022 Do You Or Have You Ever Used Smokeless Tobacco? Never Used Smokeless Tobacco Information not available 02/22/2022 Do You Participate In Social Media? Yes [email or web address] Information not available 11/24/2023 What Types Of Sporting Activities Do You Participate In? Sports And Gym Information not available 02/22/2022 Do You Feel Stressed (tense, Restless, Nervous, Or Anxious, Or Unable To Sleep At Night)? [id number] [email or web address] Information not available 02/22/2022 Do You Use Any Illicit Or Recreational Drugs? No [email or web address] Information not available 02/22/2022 Do You Use Sunscreen Routinely? No Information not available 02/22/2022 Have You Recently Traveled Abroad? No [email or web address] Information not available 02/22/2022 Are You Currently In School? No [email or web address] Information not available 02/22/2022 Do You Have Any Dietary Restrictions? No [email or web address] Information not available 02/22/2022 Do You Or Have You Ever Used Any Other Forms Of Tobacco Or Nicotine? Yes Vape [email or web address] Information not available 02/22/2022 Sex: Male Functional Status Question Answer Note LastModified by Organizat ion Details LastModified Time Do you have difficulty walking or climbing stairs? No [email or web address] Information not available 02/22/2022 Do you have transportation difficulties? No [email or web address] Information not available 02/22/2022 Are you able to walk? YESWOREST gltqtotqa19 Information not available 02/22/2022 Do you have difficulty doing errands alone? No [email or web address] Information not available 02/22/2022 Are you able to care for yourself? Yes [email or web address] Information not available 02/22/2022 Do you have difficulty dressing or bathing? No [email or web address] Information not available 02/22/2022 What is your exercise level? Heavy [email or web address] Information not available 02/22/2022 Mental Status Question Answer Note LastModified by Organization D etails LastModified Time Do you have difficulty concentrating, remembering or making decisions? No [email or web address] Information no t available 02/22/2022 Family History Relationship Description Onset Age of this Age Resolved Age Notes LastModified by Organization Details LastModified Time Father Hypertensive disorder [email or web address] Not available 02/08 11:50:19 Father Asthma [email or web address] Not availabl e 02/22/2022 11:50:32 Mother Asthma [email or web address] Not availabl e 02/22/2022 11:50:32 Paternal Grandmother Chronic heart disease Heart valve issue [email or web address] Not available 02/22/2022 11:52:13 Paternal Grandfather Myocardial infarction [email or web address] Not available 11:51:58 Paternal Grandfather Diabetes mellitus [email or web address] Not available 02/08 14:56:55 Medical History Condition Response Anxiety Disorder Y Asthma Y Cardiac Diseases / Disorders Y Eye Disease / Disorders Y Immunizations Vaccine Type Date Status Note Provider Nam e and Address Organization Details Recorded Time DTaP, unspecified formulation 2 completed Luis Fernando Stone null, [place] - [facility] 02/22/2022 12:27:38 DTaP, unspecified formulation 3 completed Luis [place] [facility] 02/22/2022 12:27:46 DTaP, unspecified formulation 3 completed Luis [place] [facility] 02/22/2022 12:27:56 DTaP, unspecified formulation 4 completed Luis [place] [facility] 02/22/2022 12:28:02 DTaP, unspecified formulation 7 completed Luis [place] [facility] 02/22/2022 12:28:09 Hep A, ped/adol, 2 dose 7 completed Luis [place] [facility] 02/22/2022 12:28:25 Hep A, ped/adol, 2 dose 4 completed Luis [place] [facility] 02/22/2022 12:28:32 Hep B, adolescent or pediatric 2 completed Luis [place] [facility] 02/22/2022 12:28:54 Hep B, adolescent or pediatric 3 completed Luis [place] [facility] 02/22/2022 12:29:00 Hib, unspecified formulation 3 completed Luis [place] [facility] 02/22/2022 12:29:16 Hib, unspecified formulation 4 completed [place] [facility] 02/22/2022 12:29:23 Hib-Hep B 2 completed [place] [facility] 02/22/2022 12:29:43 Hib-Hep B 3 completed [place] [facility] 02/22/2022 12:29:51 HPV, unspecified formulation 4 completed [place] [facility] 02/22/2022 12:30:04 HPV, unspecified formulation 5 completed Luis [place] [facility] 02/22/2022 12:30:11 Influenza, split virus, quadrivalent, PF 9 completed [place] [facility] 02/22/2022 12:31:04 influenza, unspecified formulation 9 completed Luis [place] [facility] 02/22/2022 12:32:18 influenza, unspecified formulation 1 completed [place] [facility] 02/22/2022 12:32:23 IPV 2 completed Luis [place] [facility] 02/22/2022 12:32:33 IPV 3 completed Luis Fernando Stone null, [place] - [facility] 02/22/2022 12:32:39 IPV 4 completed Luis Fernando [place] [facility] 02/22/2022 12:32:47 IPV 7 completed Luis Fernando [place] [facility] 02/22/2022 12:32:55 meningococcal MCV4, unspecified formulation 4 completed Luis Fernando [place] [facility] 02/22/2022 12:33:18 meningococcal MCV4P 9 completed Luis Fernando [place] [facility] 02/22/2022 12:33:52 MMR 3 completed Luis Fernando Stone null, [facility] 02/22/2022 12:34:04 MMR 7 completed Luis Fernando Stone null, [facility] 02/22/2022 12:34:11 pneumococcal conjugate PCV 7 2 completed Luis Fernando Stone null, [facility] 02/22/2022 12:34:24 pneumococcal conjugate PCV 7 3 completed Luis Fernando Stone null, [facility] 02/22/2022 12:34:53 pneumococcal conjugate PCV 7 3 completed Luis Fernando Stone null, [facility] 02/22/2022 12:35:00 pneumococcal conjugate PCV 7 4 completed Luis Fernando Stone null, [facility] 02/22/2022 12:35:05 Tdap 4 completed Luis Fernando Stone null, [facility] 02/22/2022 12:35:18 varicella 4 completed Luis Fernando Stone null, [facility] 02/22/2022 12:35:31 varicella 7 completed Luis Fernando Stone null, [place] - [facility] 02/22/2022 12:35:42 Past Encounters Encounter ID Performer Location Encounter Start Date Encounter Closed Date Diagnosis/Indication Diagnosis SNOMED-CT Code Diagnosis ICD10 Code Diagnosis Note [id number] Meri Saldana, DOG GROOMER-BC, PMHNP-BC Main Office [address] [place] [address] 02/22/2022 11:44:59 02/22/2022 12:38:48 Acute bacterial sinusitis 21385479 J01.90 Having significan t sinus pressure and pain. Given Augmentin and Mucinex-D for infection. [id number] Meri Saldana [facility] Main Office [address] [place] [facility] [place] [address] 07/26/2022 09:32:45 07/26/2022 11:53:54 Acute stress disorder 11393070 F43.0 Anxiety 66398089 F41.9 [id number] Meri Saldana [facility] Telemedic ine [address] [place] [facility] [place] [address] 2022 09:29:51 2022 10:44:13 Acute stress disorder 63977454 F43.0 Has not made appointmen t with counselor. Counseled on necessity and importance of such. Anxiety 60847432 F41.9 Continue Lexapro and increased propranolo l.Reports episodes of diarrhea. Counseled on anxiety can play parts of such. Counseled on meeting with counselor. He v/u. Will see back in 2-3 weeks to see how Kg is doing and whether adjustment or change is needed. [id number] Meri Saldana [facility] Telemedic ine [address] [place] [facility] [place] [address] 08/29/2022 09:38:02 08/29/2022 15:18:48 Acute stress disorder 02815249 F43.0 Stress is improving, court situation is going good. No new charges and no evidence has showed to be guilty. Anxiety 55446335 F41.9 Continue Lexapro. Will do four more weeks of Lexapro and if episodes continue will make medication changes. Doing much better with anxiety and related. No new charges and/or related. [id number] Meri Saldana [facility] Telemedic ine [address] [place] [facility] [place] [address] 09/26/2022 12:18:26 09/26/2022 13:21:25 Acute stress disorder 07685507 F43.0 Getting better. Continue Lexapro. Anxiety 03313495 F41.9 Doing much better with anxiety. Denies any sxs and would like to be weaned off Propranolo l.Weaning propranolo l protocol given.Cont inue Lexapro. [id number] Meri Saldana [facility] Telemedic ine [address] [place] [address] 10/25/2022 12:06:06 10/25/2022 14:39:40 Acute stress disorder 51526854 F43.0 Situation has been much better. Doing better. Weaning off medication .F/U 6 months unless worsening symptoms. [id number] Meri Osman Les [facility] Main Office [address] 4 03/20/2023 14:26:16 03/20/2023 15:37:13 Elevated blood-pressure reading without diagnosis of hypertension 223844568 R03.0 Excessive caffeine intake 9069169930 40485 R63.8 [id number] Meri Osman Les [facility] Main Office [address] [place] [address] 08/20/2023 12:14:03 08/20/2023 14:31:20 Active or passive immunization 748226679 Z23 up to date Adult heal th examination 909134317 Z00.00 [id number] Meri Saldana [facility] Main Office [address] [place] [address] 11/24/2023 14:59:35 11/24/2023 19:43:56 Posterior rhinorrhea 45993745 R09.82 Flonase given along with directions on how to use Flonase for maximum benefit and penetratio n. Explained to Kg on how to use the Flonase. Since the nasal spray is dispensed UPward into the nares, gravity s impact is pulling it, letting it flow, or falling back down the throat, missing the eustachian tube and most sinus cavities altogether . Using a bedtime spray helps minimize the falling spray down the throat, uses gravity to your advantage, & helps get the medicine delivered to the sinuses & tubes. Prepare for bed first, sit on the side of the bed, and then spray into nares per instructio ns. Lay flat immediatel y after spraying, turning head to one side for one minute and then the other side for one minute. Doing this step helps maximize fluid delivery directly into the congested areas of sinuses and tubes. Once the 2 minutes is , get comfortabl e and go to sleep; do NOT get up afterward. Serum crea tinine above reference range 334154494 R79.89 Mass of right breast 431 2943356 2092126 N63.10 Health Concerns Section Related Observation LastModified by Organization Detai ls LastModified Time None Recorded Concern Status LastModified by Organization Details LastModified Time None Recorded Advance Directives Directive N: Payers Encounter Date Sequence Insurance Name Policy Number Policy Jett Covered Member ID Jett Member ID Guarantor Name 09/26/2022 1 [place] Kg Vizcarra [id number] Kg Vizcarra 10/25/2022 1 [facility] (MEDICAID HMO) [id number] Kg Vizcarra [id number] Kg Vizcarra 03/20/2023 1 [facility] (MEDICAID HMO) [id number] Kg Vizcarra [id number] Kg Vizcarra 08/20/2023 1 [place] [id number] Kg Vizcarra [id number] Kg Vizcarra 08/20/2023 2 [place] [employer] [place] Kg Vizcarra [id number] Kg Vizcarra 11/24/2023 1 [place] [id number] Kg Vizcarra [id number] Kg Vizcarra 11/24/2023 2 [place] Kg Vizcarra [id number] Kg Vizcarra Notes Date Note Type Note Provider Name and Address Organization Details Recorded Time 09/26/2022 text/html Patient Verifica tion & Telemedicine Based Consent. Today's visit was conducted virtually due to COVID-19 countermeasures. The patient/POA/Caregiver has given verbal consent to have today's visit conducted by this same means with treatment provided remotely. The patient/POA/Caregiver verbally consents to the billing and collection practices of the provider's medical group. Requested telemedicine visit due to COVID-19 and provided verbal consent prior to visit. Symptoms and conditions treated are done via subjective statements and explanations thus may or may not fully treat the condition given it is based on subjective statements. Video and audio conferencing performed. Acute Stress Disorder and Anxiety - on medications and doing better. stabilizing. no new sxs. Denies SI/HI. Reports decreasing sxs. Meri ChristyABRAHAM Fall, PMP-ARTUR [address] [place], [address], [facility] 09/26/2022 12:52:24 10/25/2022 text/html Patient Verifica tion & Telemedicine Based Consent. Today's visit was conducted virtually due to COVID-19 countermeasures. The patient/POA/Caregiver has given verbal consent to have today's visit conducted by this same means with treatment provided remotely. The patient/POA/Caregiver verbally consents to the billing and collection practices of the provider's medical group. Requested telemedicine visit due to COVID-19 and provided verbal consent prior to visit. Symptoms and conditions treated are done via subjective statements and explanations thus may or may not fully treat the condition given it is based on subjective statements. Video and audio conferencing performed. Acute Stress Disorder and Anxiety - on medications. No new sxs. doing well. Situation is improving and would like to discuss weaning off medication. Meri Osman ABRAHAM Saldana, JENNY-ARTUR [address] [place], [address], [facility] 10/25/2022 12:44:26 03/20/2023 text/html Elevated BP - Concerned about elevated BP. His father has HTN and then having more stressful episodes. Does not report any EID, blurry vision, dizziness, CP, SOB, or palpitations. Meri ChristyABRAHAM Fall, PMHNP-BC [address] [place], [address], [facility] 03/20/2023 15:06:12 08/20/2023 text/html Annual WellnessReported bypatient.Diet and Nutrition:healthy diet Fracture Risk:no history of fractures; no recent explained fracture; no sudden unexplained fractures; no previous musculoskeletal injuries Physical Activity:exercises on a regular basis; recent increase in physical activity; good physical condition Additional Lifestyle Factors:no tobacco use; no alcohol intake; stopped drinking alcohol Depression Risk:never feels sad, empty, or tearful; no loss of interest in activities; no significant changes in weight; no sleep disturbances or insomnia; no agitation; no loss of energy; no feelings of worthlessness or guilt; no thoughts of suicide; no history of mood disorders;history of depression Hearing:no loss of hearing Vision:no vision problems Meri Saldana, DOG GROOMER-BC, PMHNP-BC [address] [place], [address], [facility] 08/20/2023 12:41:13 11/24/2023 text/html Sinusitis/Allerg yRepor daniel bypatient.Quality:jeffrey ested;colored phlegm;productive cough Severity:no pain; no nosebleeds (epistaxis); no snoring;limits daily activities;frequent breathing through the mouth Duration:continuous Onset/Timing:recurring Context:no recent upper respiratory infection; no recent sick contacts; not worse with seasonal allergen exposure; not worse around animals; not worse around pollen; not worse around dust; not worse around molds; not worse with environmental exposure; not worse when mowing grass; not worse with certain foods; not worse with odors Alleviating factors:nothing gives relief Aggravating factors:not worse with change in medication; not worse during an upper respiratory infection (a cold); not worse when allergies are active Associated Symptoms:no nasal discharge; no fever; no weight loss; no hemoptysis; no hematemesis; no difficulty breathing; no feeling of strangulation; no nausea or vomiting; no headache; no facial pain; no sinus pain; no sore throat; no nasal discharge; no decreased sense of smell; no nasal passage blockage; no ear fullness; no nasal itching; no eye itching; no pain behind the eyes; no skin itching; no dental pain; no muscle aches;cough;thick phlegm in throat;constantly clearing the throat Risk Factors:no current smoking or tobacco use; no history of smoking; no increased stress; no family history of allergies; no history of nasal trauma; no allergy to aspirin; no history of nasal polyps; no history of asthma; no chemotherapy; no DM; no HIV; no immunodeficiencyNotes: Has been to UC several times in the last 3-4 months and given ABX which has not cleared up the situation. Elevated Creatinine noted on last labs. Patient reports that he has a hard lump around his R breast for a few weeks and often has periods of it being extremely tender to touch and tender when rubbing against clothes and the related. Meri Saldana, DOG GROOMER-BC, PMHNP-BC [address] [place], [address], [facility] 11/24/2023 19:55:09
--- OUTSIDE RECORDS SUMMARY | 2025-02-10 07:53 | XMS_ITS ---
Author Organization [facility] Address [address] [place] [address] Phone Care Team Providers Care Brickmason Contractor Name Role Phone Unavailable Unavailable Unavailable Plan of Treatment No Plan of Treatment Recorded Assessments Includes: Assessments for all patient encounters No Assessments Recorded Medical Equipment - Implanted Devices Includes: Current and historical Devices No Medical Equipment Recorded Medications Administered Includes: Administered Medications in patient's chart No Administered Medications Recorded Results Includes: Results from 02/11/2024 through 02/10/2025 No Results Recorded For Specified Dates History of Present Illness History of Present Illness not supported for this document type No History of Present Illness Recorded Social History No Social History Recorded - Smoking Status Unknown Medical History Includes: Medical History in patient's chart No Medical History Recorded Family History Includes: Family History in patient's chart No Family History Recorded Review of Systems Review of Systems not supported for this document type No Review of Systems Recorded Mental Status No Mental Status Recorded Functional Status No Functional Status Recorded Physical Exam Physical Exam not supported for this document type No Physical Exam Recorded Clinical Notes Includes: Signed Clinical Notes starting from 11/29/2022 No Clinical Notes Recorded
--- OUTSIDE RECORDS SUMMARY | 2025-02-10 07:54 | XMS_ITS ---
Care Plan - [facility] Created on: February 10, 2025 CARRIE PEGUERO : 2000 Sex: Male Author Organization [facility] Address [address] [place] [address] Phone Care Team Providers Care Sustainable Products Marketing Manager Name Role Phone Unavailable Unavailable Unavailable
[2025-02-10 08:12] LABS: Basophils Absolute Auto 0.1 K/mm3 (0.0-0.1); Basophils Percent Auto 1.1 % (0.2-1.2); Eosinophils Absolute Auto 0.2 K/mm3 (0-0.3); Eosinophils Percent Auto 3.7 % (0-4.4); Hematocrit 41.7 % (42.0-52.0); Hemoglobin 14.9 g/dL (14.0-18.0); Immature Granulocyte Absolute 0.01 K/mm3 (0.00-0.031); Immature Granulocyte Percent A 0.2 % (0-0.5); Lymphocytes Absolute Auto 1.44 K/mm3 (0.9-3.2); Lymphocytes Percent Auto 31.3 % (18.3-44.2); Mean Corpuscular HGB Conc 35.7 g/dl (32-36); Mean Corpuscular Hemoglobin 30.8 pg (26-34); Mean Corpuscular Volume 86.3 fl (80-100); Mean Platelet Volume 9.1 fl (7.4-10.4); Monocytes Absolute Auto 0.5 K/mm3 (0.1-0.6); Monocytes Percent Auto 11.5 % (2.6-8.5); Neutrophils Absolute Auto 2.4 K/mm3 (1.3-6.7); Neutrophils Percent Auto 52.2 % (45.5-73.1); Platelet Count Result 219 k/mm3 (150-375); Red Blood Count 4.83 M/mm3 (4.6-6.20); Red Cell Distribution Width 11.7 % (11.5-14.5); White Blood Count 4.6 K/mm3 (4.5-10.0)
== END 2025-02-10 07:46 | disposition home or self-care (01) ==
PROVIDERS: PCP Emergency Medicine; Visit Provider Emergency Medicine
DX: R53.83 Other fatigue (principal); E03.9 Hypothyroidism, unspecified
CPT/HCPCS: 36415; 84443; 85025

== ENCOUNTER 2025-02-18 07:47 | Outpatient (CLI) | payer OTHER, SELFPAY ==
--- OUTSIDE RECORDS SUMMARY | 2025-02-18 07:51 | XMS_ITS | Data Portability ---
Author Organization [facility] Address [address] [place] [address] Assessment No assessment recorded. Plan of Treatment Reminders Order Date Submit Date Provider Last Modified By Organization Details Last Modified Time Details Appointments None recorded. Lab rapid strep group A, [facility] [address] [facility] Order, Internal Use Only DO Not Attach Compendium DO Not Attach Compendium, Do Not Delete/merge, [id number] 11:07:20 rapid strep group A, throat [address] [facility] Order, Internal Use Only DO Not Attach Compendium DO Not Attach Compendium, Do Not Delete/merge, [id number] 10:43:05 rapid strep group A, throat [address] [facility] In-Office Order, Internal Use Only DO Not Attach Compendium DO Not Attach Compendium, Do Not Delete/merge, [id number] 11:43:34 Referral None recorded. Procedures None recorded. Surgeries None recorded. Imaging None recorded. Medication Orders fluticasone propionate 50 mcg/actuati on nasal spray,suspe nsion 2019 020 tanvir [facility] #[id number], [address], [place], [place], [id number], 0 15:10:45 Augmentin 875 mg-125 mg tablet 2018 019 monica [facility] #[id number], [address], [place], [place], [id number], 0 10:48:50 fluticasone propionate 50 mcg/actuati on nasal spray,suspe nsion [address] [facility] #[id number], [address], [place], [place], [id number], 0 15:10:45 fluticasone propionate 50 mcg/actuati on nasal spray,suspe nsion [address] [facility] #[id number], [address], [place], [place], [id number], 0 15:10:45 Patient TargetsNo targets recorded. Patient Instructions Encounter Date Encounter Id Patient Instructions Last Modified By Organization Details Last Modified Time 08/25/2019 [id number] Acute Sinusitis in Teens: Care Instructions [email or web address] Not available 08/25/2019 10:43:05 11/16/2019 [id number] Considering More Physical Activity for Your Child [email or web address] Not available 11/16/2019 11:07:20 Learning About How to Make Healthy Changes in Your Child's Diet [email or web address] Not available 11/16/2019 11:07:20 08/03/2020 [id number] nausea and vomiting in teens: care instructions [email or web address] Not available 08/03/2020 15:14:15 Reason for Referral None Reported. Results Created Date Observation Date Name Description Value Unit Range Abnormal Flag Note LastModifiedBy Organization Detail LastModifiedTime 12/30/1912/30/2018 rapid strep group A, throa t Strep negati ve Not Available In-Office Order Internal Use Only DO Not Attach Compendium DO Not Attach Compendium, Do Not Delete/merge, [id number] 12/30/2018 11:19:29 08/25/20 19 08/25/2019 rapid strep group A, throa t Strep negati ve Not Available In-Office Order Internal Use Only DO Not Attach Compendium DO Not Attach Compendium, Do Not Delete/merge, [id number] 08/25/2019 10:17:39 11/16/19 20 11/16/2019 rapid strep group A, throa t Strep negati ve Not Available In-Office Order Internal Use Only DO Not Attach Compendium DO Not Attach Compendium, Do Not Delete/merge, [id number] 11/16/2019 10:51:45 Result Notes None recorded. Problems [...] propionate 50 mcg/actuati on nasal spray,suspe nsion [place] 1 spray every day by intranasa l [...] /min 179.71 cm 21.9 kg/m2 65 % 65803.1 1 g 97.8 [degF] 128 mm[Hg] 68 mm[Hg] Annika Beatty MA [facility] 9 13:59:55 Date Recorded Heart rate Respiratory rate Body temperature Body height Body mass index (BMI) Body mass index (BMI) Percentile per age and sex Body weight Systolic blood pressure Diastolic blood pressure Provider Name and Address Organization Details Last Updated DateTime 9 64 /min 16 /min 97.6 [degF] 180.34 cm 21.3 kg/m2 57 % 81870.6 3 g 112 mm[Hg] 74 mm[Hg] Johana Fraser MA [facility] 9 11:21:27 Date Recorded Body height Body mass index (BMI) Percentile per age and sex Body mass index (BMI) Body weight Heart rate Respiratory rate Body temperature Systolic blood pressure Diastolic blood pressure Provider Name and Address Organization Details Last Updated DateTime 9 181.61 cm 45 % 20.9 kg/m2 16819.0 4 g 76 /min 16 /min 98.7 [degF] 110 mm[Hg] 78 mm[Hg] Renea millsDAVID [facility] 9 10:12:33 Date Recorded Body temperature Provider Name a vt Address Organization Details Last Updated DateTime 11/16/2019 98.5 [degF] Dawna TIFFAYN RamirezReba [facility] 2019 10:47:47 Date Recorded Body height Body mass index (BMI) Body mass index (BMI) Percentile per age and sex Body weight Heart rate Respiratory rate Systolic blood pressure Diastolic blood pressure Provider Name and Address Organization Details Last Updated DateTime 0 180.98 cm 21.5 kg/m2 51 % 11546.8 2 g 84 /min 16 /min 118 mm[Hg] 68 mm[Hg] Johana Fraser MA [facility] 0 10:52:17 Social History Question Answer Notes LastModified by Organizat ion Details LastModified Time Tobacco Smoking Status Never Smoker Johana Fraser MA null, [facility] 11/20/2018 14:04:18 Animal Exposure? Yes Information not available 11/20/2018 What Is Your Level Of Caffeine Consumption? Occasional [email or web address] Information not available 11/20/2018 What Type Of Diet Are You Following? REGULAR [email or web address] Information not available 11/20/2018 Do You Or Have You Ever Used E-cigarettes Or Vape? Never Used Electronic Cigarettes Information not available 11/16/2019 Are There Any Guns Present In Your Home? Yes Locked Up [email or web address] Information not available 11/20/2018 What Is Your Home Situation? Mother Lives With Mom, Sister [email or web address] Information not available 11/20/2018 Do You Use Insect Repellent Routinely? Yes [email or web address] Information not available 11/20/2018 Car Seat Type Or Seat Belt? Seat Belt [email or web address] Information not available 11/20/2018 Parent Involvement? Both Parents Involved [email or web address] Information not available 11/20/2018 Riding In Car Front Seat? Yes [email or web address] Information not available 11/20/2018 What Was The Date Of Your Most Recent Tobacco Screening? 11/16/2019 Information not available 11/16/2019 What Is Your Parents' Marital Status? Information not available 11/20/2018 What Is The Name Of Your School? [employer] [email or web address] Information not available 11/20/2018 Do You Have Any Siblings? 1 Sister [email or web address] Information not available 11/20/2018 Do You Have Smoke And Carbon Monoxide Detectors In Your Home? Yes [email or web address] Information not available 11/20/2018 Are You Passively Exposed To Smoke? Yes [email or web address] Information not available 11/20/2018 Do You Or Have You Ever Used Smokeless Tobacco? Never Used Smokeless Tobacco Information not available 11/16/2019 What Types Of Sporting Activities Do You Participate In? Football, Basketball, Track [email or web address] Information not available 11/20/2018 Do You Use Sunscreen Routinely? Yes [email or web address] Information not available 11/20/2018 Year In School 12 [email or web address] Informatio n not available 08/03/2020 Sex: Unknown Functional Status Question Answer Note LastModified by Organization D etails LastModified Time What is your exercise level? Heavy [email or web address] Information not available 11/20/2018 Mental Status None recorded. Family History Relationship Description Onset Age of this Age Resolved Age Notes LastModified by Organization Details LastModified Time Father Asthma [email or web address] Not available 0 11/20/2018 14:04:00 Paternal Grandfather Diabetes mellitus [email or web address] Not available 2018 14:04:12 Medical History Condition [...] 13:41:35 meningococcal MCV4P 9 completed Not Available [facility] 11/27/2019 02:48:27 Influenza, split virus, quadrivalent, PF 9 completed Not Available [facility] 11/27/2019 02:37:02 Past Encounters Encounter ID Performer Location Encounter Start Date Encounter Closed Date Diagnosis/Indication Diagnosis SNOMED-CT Code Diagnosis ICD10 Code Diagnosis Note [id number] Ace Rubio MD [facility] (Peds) [address] [place] [address] 11/20/2018 13:41:17 11/23/2018 12:44:01 Well child 375963429 Z00.129 discussed routine adolescent care, safety, school performanc e, healthy weight with diet and exercise, etc [id number] [facility] [address] [place] [address] 12/30/2018 11:15:30 12/31/2018 10:14:22 Upper respiratory infection 67640765 J06.9 rest, tylenol prn, humidifier , warm salt water gargles, etc [id number] [facility] [address] [place] [address] 08/25/2019 09:53:17 08/26/2019 14:56:19 Acute sinusitis 68234561 J01.90 [id number] [facility] [address] [place] [address] 11/16/2019 10:42:17 11/17/2019 10:04:03 Diet education 05532620 Z71.3 Exercises education, guidance, and counseling 949828612 Z71.82 Upper resp iratory infection 58540745 J06.9 rest, tylenol prn, humidifier , warm salt water gargles, etc [id number] MD Molly Villaseñor (Peds) [address] [place] [facility] [place] [address] 08/03/2020 12:11:17 08/04/2020 09:39:50 Vomiting 002247865 R11.10 BRAT diet. likely secondary to food. reassuranc e. Health Concerns Section Related Observation LastModified by Organization Detai ls LastModified Time None Recorded Concern Status LastModified by Organization Details LastModified Time None Recorded Advance Directives Directive None Recorded Payers Encounter Date Sequence Insurance Name Policy Number Policy Jett Covered Member ID Jett Member ID Guarantor Name 11/20/2018 1 [facility] PRIOR TO 05/10/2021 (MEDICAID REPLACEMENT - HMO) [facility] [id number] 12/30/2018 1 [facility] PRIOR TO 05/10/2021 (MEDICAID REPLACEMENT - HMO) Kg Vizcarra [id number] [facility] 08/25/2019 1 [place] [facility] [id number] [facility] 11/16/2019 1 [place] [facility] [address] [id number] [facility] 08/03/2020 1 [place] [facility] [address] [id number] [facility] Notes Date Note Type Note Provider Name a vt Address Organization Details Recorded Time 11/20/2018 text/html No concerns, needing school med form filled out for school for zyrtec and ibuprofen for headaches PRN. Former pt of Dr Padilla. Plays baseball. John Rubio MD Attn: Accounting,[address] [facility], [place], [address], [facility] 11/20/2018 14:25:50 12/30/2018 text/html C/o of St with cough and congestion for the past 24 hours. no fever. No abd pain. no v/d. No known sick contacts. John Rubio MD Attn: Accounting,[address] [facility], [place], [address], [facility] 12/30/2018 11:43:52 08/25/2019 text/html C/o of cough and congestion for the past week with ST. no abd pain. no v/d. + headaches John Rubio MD Attn: Accounting,[address] [facility], [place], [address], [facility] 08/25/2019 10:43:22 11/16/2019 text/html c/o cough and congestion for the past [address] No fever. No v/d. No abd pain. c/o mild SOB. John Rubio MD Attn: Accounting,[address] [facility], [place], [address], [facility] 11/16/2019 11:07:55 08/03/2020 text/html c/o: mom states patient had fish and pizza last night for dinner- vomited after eating last pm and early this am. Mom thinks patient had food poisoning. Needing note to return to school. NO fever. no diarrhea. seems fine now per mother. no known sick contacts. no recent travel. John Rubio MD Attn: Accounting,[address] [facility], [place], [address], [facility] 08/03/2020 15:14:33
--- OUTSIDE RECORDS SUMMARY | 2025-02-18 07:51 | XMS_ITS | Clinical Summary ---
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
--- OUTSIDE RECORDS SUMMARY | 2025-02-18 07:51 | XMS_ITS ---
Author Organization [facility] Address [address] [place] [address] Phone Care Team Providers Care Asphalt Mixer Name Role Phone Unavailable Unavailable Unavailable Plan of Treatment No Plan of Treatment Recorded Assessments Includes: Assessments for all patient encounters No Assessments Recorded Medical Equipment - Implanted Devices Includes: Current and historical Devices No Medical Equipment Recorded Medications Administered Includes: Administered Medications in patient's chart No Administered Medications Recorded Results Includes: Results from 02/19/2024 through 02/18/2025 No Results Recorded For Specified Dates History [...]
--- OUTSIDE RECORDS SUMMARY | 2025-02-18 07:51 | XMS_ITS | Referral Summary ---
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
--- OUTSIDE RECORDS SUMMARY | 2025-02-18 07:51 | XMS_ITS | Data Portability ---
Author Organization [email or web address] [facility], [employer] Address [address] [place] [address] Assessment Encounter Date Assessment Date Assessment LastModified [...] 4 weeks - telemedicine, sooner if needed [email or web address] Not available 09/26/2022 12:41:29 10/25/2022 10/25/2022 Medication [...] plan. F/U 6 months, sooner if needed Not available 10/25/2022 12:40:43 03/20/2023 03/20/2023 Medication [...] time spent in any separately reportable services. [email or web address] Not available 03/20/2023 15:05:19 08/20/2023 08/20/2023 Medication [...] plan. F/U 1 year, sooner if needed Not available 08/20/2023 12:33:00 11/24/2023 11/24/2023 Medication Changes Flonase as directed labs to recheck elevated levels. Mammogram given and along with u/s order for R breast to further evaluate the mass palpated to r/o possible cyst, benign mass, vs possible cancerous mass. Provided patient with ENT Same day information over in [place], [place] to contact and see them as [...] in any separately reportable services. Not available 11/24/2023 19:55:05 Plan of Treatment Reminders Order Date Submit Date Provider Last Modified By Organization Details Last Modified Time Details Appointments None recorded . Lab CBC w/ auto diff 2023 024 [email or web address] [facility], [id number] [place] [address], [address], 4 09:01:24 CMP, serum or plasma 2023 024 [facility] [place] [facility], [id number] [place] [address], [address], 4 07:30:34 CBC w/ auto diff 2022 023 [facility] [place] [facility], [address] [place], [address], 3 10:56:01 CMP, serum or plasma 2022 023 [email or web address] [place] [facility], [address] [place], [address], 3 11:17:36 TSH, serum or plasma 2022 023 [email or web address], [address] [address] [facility] [place], [address], 3 16:58:38 lipid panel, serum 2022 023 [facility], [address] [address] [facility] [place], [address], 3 11:17:34 magnesiu m, serum or plasma 2022 023 [facility], [address] [place] [address] [place], [address], 3 11:17:35 vitamin B12, serum 2022 023 [email or web address], [address] [place] [address] [place], [address], 3 16:58:38 folate, serum 2022 023 [email or web address], [address] [place] [address] [place], [address], 3 16:58:38 iron, serum 2022 023 [facility], [address] [place] [address], [address], 3 11:17:35 Referral None recorded . Procedures None recorded . Surgeries None recorded . [facility] (Radiology), [address] [facility] [place], [address], 4 19:43:25 MAMMO, diagnost ic, digital, unilater al 2023 024 [facility] (Radiology), [address] [facility] , [place], [address], 4 19:43:25 Medication Orders fluticas one propiona te 50 mcg/actu ation nasal spray,valverde spension 2023 024 [facility], [address], [place], [place], [id number], 4 15:57:21 escitalo pram 5 mg tablet [email or web address] [facility], [address], [place], [place], [id number], 3 14:22:32 escitalo pram 10 mg tablet 2021 022 [facility]85550, [address], [place], [place], [id number], 2 12:44:22 Patient TargetsNo targets recorded. Patient Instructions Encounter Date Encounter Id Patient Instructions Last Modified By Organization Details Last Modified Time 03/20/2023 [id number] learning about caffeine [email or web address] Not available 03/20/2023 15:05:20 08/20/2023 [id number] learning about dietary guidelines [email or web address] Not available 08/20/2023 12:33:44 resistance training with free weights: exercises Not available 08/20/2023 12:33:44 Reason for Referral None Reported. Results Created Date Observation Date Name Description Value Unit Range Abnormal Flag Note LastModifiedBy Organization Detail LastModifiedTime 11/25/19 24 11/25/2023 COMPR EHENS ALIREZA METAB OLIC PANEL glucose 95 mg/dL 65-99 normal Fasti ng refer ence inter jorge alberto Not Available [facility] [address] [place], [address], 11/25/2023 07:30:34 11/25/19 24 11/25/2023 COMPR EHENS ALIREZA METAB OLIC PANEL urea nitrogen (BUN) 20 mg/dL 7-25 normal Not Available [address], [address], 11/25/2023 07:30:34 11/25/19 24 11/25/2023 COMPR EHENS ALIREZA METAB OLIC PANEL creatinine 1.02 mg/dL 0.60-1 .24 normal Not Available [address], [address], 11/25/2023 07:30:34 11/25/19 24 11/25/2023 COMPR EHENS ALIREZA METAB OLIC PANEL eGFR 107 mL/mi n/1.7 3m2 > or = 60 normal Not Available [address], [address], 11/25/2023 07:30:34 11/25/19 24 11/25/2023 COMPR EHENS ALIREZA METAB OLIC PANEL BUN/creatini ne ratio SEE NOTE: (calc ) 6-22 Not Repor daniel: BUN and Creat inine are withi n refer ence range . Not Available [address], [address], 11/25/2023 07:30:34 11/25/19 24 11/25/2023 COMPR EHENS ALIREZA METAB OLIC PANEL sodium 138 mmol/ L 135-14 6 normal Not Available [address], [address], 11/25/2023 07:30:34 11/25/19 24 11/25/2023 COMPR EHENS ALIREZA METAB OLIC PANEL potassium 4.0 mmol/ L 3.5-5. 3 normal Not Available [address], [address], 11/25/2023 07:30:34 11/25/19 24 11/25/2023 COMPR EHENS ALIREZA METAB OLIC PANEL chloride 105 mmol/ L 98-110 normal Not Available [address] [place], [address], 11/25/2023 07:30:34 11/25/19 24 11/25/2023 COMPR EHENS ALIREZA METAB OLIC PANEL carbon dioxide 28 mmol/ L 20-32 normal Not Available [facility] [address], [address], 11/25/2023 07:30:34 11/25/19 24 11/25/2023 COMPR EHENS ALIREZA METAB OLIC PANEL calcium 9.4 mg/dL 8.6-10 .3 normal Not Available [facility] [address], [address], 11/25/2023 07:30:34 11/25/19 24 11/25/2023 COMPR EHENS ALIREZA METAB OLIC PANEL protein, total 6.9 g/dL 6.1-8. 1 normal Not Available [address], [address], 11/25/2023 07:30:34 11/25/19 24 11/25/2023 COMPR EHENS ALIREZA METAB OLIC PANEL albumin 4.4 g/dL 3.6-5. 1 normal Not Available [address], [address], 11/25/2023 07:30:34 11/25/19 24 11/25/2023 COMPR EHENS ALIREZA METAB OLIC PANEL globulin 2.5 g/dL_ (calc ) 1.9-3. 7 normal Not Available [facility] [address], [address], 11/25/2023 07:30:34 11/25/19 24 11/25/2023 COMPR EHENS ALIREZA METAB OLIC PANEL albumin/glob ulin ratio 1.8 (calc ) 1.0-2. 5 normal Not Available [facility] [address], [address], 11/25/2023 07:30:34 11/25/19 24 11/25/2023 COMPR EHENS ALIREZA METAB OLIC PANEL bilirubin, total 0.4 mg/dL 0.2-1. 2 normal Not Available [address], [address], 11/25/2023 07:30:34 11/25/19 24 11/25/2023 COMPR EHENS ALIREZA METAB OLIC PANEL alkaline phosphatase 58 U/L 36-130 normal Not Available [facility] [address], [address], 11/25/2023 07:30:34 11/25/19 24 11/25/2023 COMPR EHENS ALIREZA METAB OLIC PANEL AST 11 U/L 10-40 normal Not Available [address], [address], 11/25/2023 07:30:34 11/25/19 24 11/25/2023 COMPR EHENS ALIREZA METAB OLIC PANEL ALT 50 U/L 9-46 high Not Available [address], [address], 11/25/2023 07:30:34 03/20/20 23 03/21/2023 CBC (INCL UDES DIFF/ PLT) white blood cell count 6.9 thous and/u L 3.8-10 .8 normal Not Available [address], [address], 03/21/2023 10:56:01 03/20/20 23 03/21/2023 CBC (INCL UDES DIFF/ PLT) red blood cell count 5.30 idania on/uL 4.20-5 .80 normal Not Available [address], [address], 03/21/2023 10:56:01 03/20/20 23 03/21/2023 CBC (INCL UDES DIFF/ PLT) hemoglobin 16.1 g/dL 13.2-1 7.1 normal Not Available [facility] [address], [address], 03/21/2023 10:56:01 03/20/20 23 03/21/2023 CBC (INCL UDES DIFF/ PLT) hematocrit 48.2 % 38.5-5 0.0 normal Not Available [facility] [address], [address], 03/21/2023 10:56:01 03/20/20 23 03/21/2023 CBC (INCL UDES DIFF/ PLT) MCV 90.9 fL 80.0-1 00.0 normal Not Available [address], [address], 03/21/2023 10:56:01 03/20/20 23 03/21/2023 CBC (INCL UDES DIFF/ PLT) MCH 30.4 pg 27.0-3 3.0 normal Not Available [address], [address], 03/21/2023 10:56:01 03/20/20 23 03/21/2023 CBC (INCL UDES DIFF/ PLT) MCHC 33.4 g/dL 32.0-3 6.0 normal Not Available [address], [address], 03/21/2023 10:56:01 03/20/20 23 03/21/2023 CBC (INCL UDES DIFF/ PLT) RDW 12.0 % 11.0-1 5.0 normal Not Available [facility] [address], [address], 03/21/2023 10:56:01 03/20/20 23 03/21/2023 CBC (INCL UDES DIFF/ PLT) platelet count 302 thous and/u L 140-40 0 normal Not Available [facility] [address], [address], 03/21/2023 10:56:01 03/20/20 23 03/21/2023 CBC (INCL UDES DIFF/ PLT) MPV 9.1 fL 7.5-12 .5 normal Not Available [address], [address], 03/21/2023 10:56:01 03/20/20 23 03/21/2023 CBC (INCL UDES DIFF/ PLT) absolute neutrophils 4706 cells /uL 1500-7 800 normal Not Available [address], [address], 03/21/2023 10:56:01 03/20/20 23 03/21/2023 CBC (INCL UDES DIFF/ PLT) absolute lymphocytes 911 cells /uL 850-39 00 normal Not Available [address], [address], 03/21/2023 10:56:01 03/20/20 23 03/21/2023 CBC (INCL UDES DIFF/ PLT) absolute monocytes 690 cells /uL 200-95 0 normal Not Available [facility] [address], [address], 03/21/2023 10:56:01 03/20/20 23 03/21/2023 CBC (INCL UDES DIFF/ PLT) absolute eosinophils 531 cells /uL 15-500 high Not Available [address], [address], 03/21/2023 10:56:01 03/20/20 23 03/21/2023 CBC (INCL UDES DIFF/ PLT) absolute basophils 62 cells /uL 0-200 normal Not Available [facility] [address], [address], 03/21/2023 10:56:01 03/20/20 23 03/21/2023 CBC (INCL UDES DIFF/ PLT) neutrophils 68.2 % normal Not Available [address] [place], [address], 03/21/2023 10:56:01 03/20/20 23 03/21/2023 CBC (INCL UDES DIFF/ PLT) lymphocytes 13.2 % normal Not Available [facility] [address], [address], 03/21/2023 10:56:01 03/20/20 23 03/21/2023 CBC (INCL UDES DIFF/ PLT) monocytes 10.0 % normal Not Available [facility] [address], [address], 03/21/2023 10:56:01 03/20/20 23 03/21/2023 CBC (INCL UDES DIFF/ PLT) eosinophils 7.7 % normal Not Available [facility] [address], [address], 03/21/2023 10:56:01 03/20/20 23 03/21/2023 CBC (INCL UDES DIFF/ PLT) basophils 0.9 % normal Not Available [facility] [address], [address], 03/21/2023 10:56:01 03/20/20 23 03/21/2023 LIPID PANEL , STAND SAMANTHA cholesterol, total 146 mg/dL <200 normal Not Available [facility] [address], [address], 03/21/2023 16:44:49 03/20/20 23 03/21/2023 LIPID PANEL , STAND SAMANTHA HDL cholesterol 24 mg/dL > or = 40 low Not Available [facility] [address], [address], 03/21/2023 16:44:49 03/20/20 23 03/21/2023 LIPID PANEL , STAND SAMANTHA triglyceride s 106 mg/dL <150 normal Not Available [facility] [address], [address], 03/21/2023 16:44:49 03/20/20 23 03/21/2023 LIPID PANEL [...] 9): 2061- 2068 (http ://ed ucati on.Qu [employer]. com/f aq/FA Q164) Not Available [facility] [address] [address] [place], [address], 03/21/2023 16:44:49 03/20/20 23 03/21/2023 LIPID PANEL , STAND SAMANTHA chol/HDLC ratio 6.1 (calc ) <5.0 high Not Available [facility] [address] [address] [place], [address], 03/21/2023 16:44:49 03/20/20 23 03/21/2023 LIPID PANEL , STAND SAMANTHA non HDL cholesterol 122 mg/dL _(shawna c) <130 normal For patie nts with diabe ishmael plus 1 major ASCVD risk facto r, treat ing to a non-H DL-C goal of <100 mg/dL (LDL- C of <70 mg/dL ) is deisy vaughan optio n. Not Available [facility] [address] [place], [address], 03/21/2023 16:44:49 03/20/20 23 03/21/2023 IRON, TOTAL iron, total 82 mcg/d L 50-195 normal Not Available [facility] [address] [address] [address], [place], [address], 03/21/2023 16:44:49 03/20/20 23 03/21/2023 MAGNE SIUM magnesium 2.0 mg/dL 1.5-2. 5 normal Not Available [address], [address], 03/21/2023 16:44:50 03/20/20 23 03/21/2023 COMPR EHENS ALIREZA METAB OLIC PANEL glucose 94 mg/dL 65-99 normal Fasti ng refer ence inter jorge alberto Not Available [address], [address], 03/21/2023 16:44:50 03/20/20 23 03/21/2023 COMPR EHENS ALIREZA METAB OLIC PANEL urea nitrogen (BUN) 13 mg/dL 7-25 normal Not Available [address], [address], 03/21/2023 16:44:50 03/20/20 23 03/21/2023 COMPR EHENS ALIREZA METAB OLIC PANEL creatinine 1.49 mg/dL 0.60-1 .24 high Not Available [address], [address], 03/21/2023 16:44:50 03/20/20 23 03/21/2023 COMPR EHENS [...] kdoqi /gfr% 5Fcal culat or Not Available [address], [address], 03/21/2023 16:44:50 03/20/20 23 03/21/2023 COMPR EHENS ALIREZA METAB OLIC PANEL BUN/creatini ne ratio 9 (calc ) 6-22 normal Not Available [address], [address], 03/21/2023 16:44:50 03/20/20 23 03/21/2023 COMPR EHENS ALIREZA METAB OLIC PANEL sodium 142 mmol/ L 135-14 6 normal Not Available [address], [address], 03/21/2023 16:44:50 03/20/20 23 03/21/2023 COMPR EHENS ALIREZA METAB OLIC PANEL potassium 4.0 mmol/ L 3.5-5. 3 normal Not Available [address], [address], 03/21/2023 16:44:50 03/20/20 23 03/21/2023 COMPR EHENS ALIREZA METAB OLIC PANEL chloride 104 mmol/ L 98-110 normal Not Available [address], [address], 03/21/2023 16:44:50 03/20/20 23 03/21/2023 COMPR EHENS ALIREZA METAB OLIC PANEL carbon dioxide 28 mmol/ L 20-32 normal Not Available [address], [address], 03/21/2023 16:44:50 03/20/20 23 03/21/2023 COMPR EHENS ALIREZA METAB OLIC PANEL calcium 9.3 mg/dL 8.6-10 .3 normal Not Available [address], [address], 03/21/2023 16:44:50 03/20/20 23 03/21/2023 COMPR EHENS ALIREZA METAB OLIC PANEL protein, total 7.3 g/dL 6.1-8. 1 normal Not Available [address] [place], [address], 03/21/2023 16:44:50 03/20/20 23 03/21/2023 COMPR EHENS ALIREZA METAB OLIC PANEL albumin 4.2 g/dL 3.6-5. 1 normal Not Available [address], [address], 03/21/2023 16:44:50 03/20/20 23 03/21/2023 COMPR EHENS ALIREZA METAB OLIC PANEL globulin 3.1 g/dL_ (calc ) 1.9-3. 7 normal Not Available [facility] [address], [address], 03/21/2023 16:44:50 03/20/20 23 03/21/2023 COMPR EHENS ALIREZA METAB OLIC PANEL albumin/glob ulin ratio 1.4 (calc ) 1.0-2. 5 normal Not Available [address], [address], 03/21/2023 16:44:50 03/20/20 23 03/21/2023 COMPR EHENS ALIREZA METAB OLIC PANEL bilirubin, total 0.6 mg/dL 0.2-1. 2 normal Not Available [address], [address], 03/21/2023 16:44:50 03/20/20 23 03/21/2023 COMPR EHENS ALIREZA METAB OLIC PANEL alkaline phosphatase 49 U/L 36-130 normal Not Available [facility] [address] [address] [place], [address], 03/21/2023 16:44:50 03/20/20 23 03/21/2023 COMPR EHENS ALIREZA METAB OLIC PANEL AST 8 U/L 10-40 low Not Available [facility] [address], [address], 03/21/2023 16:44:50 03/20/20 23 03/21/2023 COMPR EHENS ALIREZA METAB OLIC PANEL ALT 20 U/L 9-46 normal Not Available [address], [address], 03/21/2023 16:44:50 03/20/20 23 03/22/2023 FOLAT E, SERUM folate, serum 9.5 NG/mL normal Refer ence Range Low: <3.4 Borde rline : 3.4-5 .4 Tanisha l: >5.4 Not Available [address] [address] [place], [address], 03/22/2023 05:28:50 03/20/20 23 03/22/2023 VITAM IN B12 vitamin B12 647 pg/mL 200-11 00 normal Not Available [address], [address], 03/22/2023 05:28:51 03/20/20 23 03/22/2023 TSH W/REF LUCILA TO FT4 TSH w/reflex to FT4 1.35 mIU/L 0.40-4 .50 normal Not Available [address], [address], 03/22/2023 03:50:21 10/18/20 23 10/18/2023 XR, chest , 2 view No observ ation record ed. [address] [place], [address], 10/20/2023 09:52:17 01/08/20 24 01/08/2024 MAMMO , diagn ostic , digit al, bilat eral No observ ation record ed. [email or web address] [address] [place], [address], 02/06/2024 10:20:05 Result Notes None recorded. Problems Name Problem SNOMED Code Status Onset Date Resolution Date Notes Provider Name and Address Organization Details Recorded Time Anxiety 42140994 Active 2021 Crystal L. Stone, [employer]MB[employer] FINISHER-BC, PMHNP-BC [address] , [facility] [place], [address], [facility] 4 15:40:50 Acute stress disorder 99313099 Active 2021 ORLANDO MichaelP-BC, PMHNP-BC [address] , [place], [address], [facility] 4 15:40:50 Elevated blood-pressure reading without diagnosis of hypertension 987788992 Active 2022 Meri Sladana [employer] FINISHER-BC, PMHNP-BC [address] , [place], [address], [facility] 4 15:40:50 Problem Notes None recorded. Procedures Surgical History Date Name Laterality Status Provider Name and Address Organization Details Recorded Time Unlisted px dentalvlr strux completed Felice Nick [facility] 02/22/2022 16:39:15 Imaging Results Imaging Date Name Status LastModified by Organiz ation Details LastModified Time 10/18/2023 XR, chest, 2 view completed [email or web address] [address] [place], [address], 10/20/2023 09:52:17 01/08/2024 MAMMO, diagnostic, digital, bilateral completed [email or web address] [address] [place], [address], 02/06/2024 10:20:05 Procedure Notes None recorded. Medical [...] 09/26/2022 0 Alicia VALDES - Mahesh Babb [facility] 09/26/2022 12:21:30 Date Recorded Body height [...] 3 180.34 cm 77 % 26.1 kg/m2 09134.2 1 g 89 /min 20 /min 98 % 98 % 0 98.1 [degF] 138 mm[Hg] 80 mm[Hg] Patriciamatthew Hernandez [facility] 3 14:31:11 Date Recorded Systolic blood pressure Diastolic blood pressure Provider Name and Address Organization Details Last Updated DateTime 03/20/2023 122 mm[Hg] 78 mm[Hg] LES Michael-BC, PMHNP-BC [address] [place], [address], [facility] 03/20/2023 14:40:27 Date Recorded Body [...] 97 % 98.3 [degF] 0 24.3 kg/m2 69328.8 7 g 120 mm[Hg] 78 mm[Hg] Torin Albright [facility] 3 12:14:50 Date Recorded Body height Heart [...] 0 136 mm[Hg] 78 mm[Hg] Torin Albright [facility] 4 15:05:21 Date Recorded Body mass index (BMI) Body weight Provider Name and Address Organization Details Last Updated DateTime 11/24/2023 22.5 kg/m2 27515.37 g LES Michael-BC, PMHNP-BC [address] [place], [address], [facility] 11/24/2023 17:52:19 Social History Question Answer Notes LastModified by Organizat ion Details LastModified Time Tobacco Smoking Status Never Smoker Felice Sandoval [facility] 02/22/2022 11:54:33 Do You Have An Advance Directive? No [email or web address] Information not available 02/22/2022 What Is Your Level Of Alcohol Consumption? Occasional [email or web address] Information not available 02/22/2022 How Many Years Have You Consumed Alcohol? 1 [email or web address] Information not available 02/22/2022 Are You Currently Sexually Active With Anyone Who Has Traveled (within The Last 12 Weeks) To A Zika-affected Area? No [email or web address] Information not available 02/22/2022 Do You Wear A Helmet When Biking? Yes [email or web address] Information not available 02/22/2022 Are You Blind Or Do You Have Difficulty Seeing? No [email or web address] Information not available 02/22/2022 What Is Your Level Of Caffeine Consumption? Moderate Pre Workout Information not available 02/22/2022 What Type Of Hourly Sales Staff Do You Use? None [email or web address] Information not available 02/22/2022 What Is Your Code Status? Full Code Information not available 02/22/2022 In The 14 Days Before Symptom Onset, Have You Had Close Contact With A Laboratory-confir med COVID-19 While That Case Was Ill? No [email or web address] Information not available 02/22/2022 In The 14 Days Before Symptom Onset, Have You Had Close Contact With A Person Who Is Under Investigation For COVID-19 While That Person Was Ill? No [email or web address] Information not available 02/22/2022 Have You Been To An Area Known To Be High Risk For COVID-19? No Information not available 02/22/2022 Are You Currently Employed? Yes [email or web address] Information not available 02/22/2022 Are You Deaf Or Do You Have Serious Difficulty Hearing? No [email or web address] Information not available 02/22/2022 What Type Of Diet Are You Following? REGULAR [email or web address] Information not available 02/22/2022 Have You Processed Blood Or Body Fluids From An Ebola Virus Disease Patient Without Appropriate PPE? No [email or web address] Information not available 02/22/2022 Do You Reside In Or Have You Traveled To An Area Where Ebola Virus Transmission Is Active? No [email or web address] Information not available 02/22/2022 Do You Or Have You Ever Used E-cigarettes Or Vape? Current User Of Electronic Cigarettes [email or web address] Information not available 02/22/2022 What Is The Highest Grade Or Level Of School You Have Completed Or The Highest Degree You Have Received? [id number] Information not available 02/22/2022 What Is Your Occupation? [employer] Information not available 02/22/2022 How Many Days Of Moderate To Strenuous Exercise, Like A Brisk Walk, Did You Do In The Last 7 Days? 6 [email or web address] Information not available 02/22/2022 Have There Been Any Changes To Your Family Or Social Situation? No [email or web address] Information no t available 02/22/2022 What Is The Fluoride Status Of Your Home? Unknown [email or web address] Information not available 02/22/2022 Are There Any Guns Present In Your Home? Yes [email or web address] Information not available 02/22/2022 Which Of Your Hands Is Dominant? Right [email or web address] Information not available 02/22/2022 Have You Recently Or Are You Planning To Travel To An Area With Zika Virus? No [email or web address] Information not available 02/22/2022 Do You Use Insect Repellent Routinely? No Information not available 02/22/2022 Do You Have A Medical Power Of Nut Culler? No [email or web address] Information not available 02/22/2022 What Was The Date Of Your Most Recent Tobacco Screening? 11/24/2023 [email or web address] Information not available 11/24/2023 How Many Children Do You Have? 0 [email or web address] Information not available 02/22/2022 Have You Ever Been Counseled For Unhealthy Alcohol Use? No [email or web address] Information not available 11/24/2023 Do You Have Any Pets? Yes [email or web address] Information not available 02/22/2022 Do You Use Protection During Sex? Usually [email or web address] Information not available 02/22/2022 What Is Your Relationship Status? Single [email or web address] Information not available 02/22/2022 Do You Use Your Seat Belt Or Car Seat Routinely? Yes [email or web address] Information not available 02/22/2022 Are You Sexually Active? Yes [email or web address] Information not available 02/22/2022 Do You Have Smoke And Carbon Monoxide Detectors In Your Home? Yes [email or web address] Information not available 02/22/2022 Are You Passively Exposed To Smoke? Yes [email or web address] Information no t available 02/22/2022 Do You Or Have You Ever Used Smokeless Tobacco? Never Used Smokeless Tobacco [email or web address] Information not available 02/22/2022 Do You Participate In Social Media? Yes [email or web address] Information not available 11/24/2023 What Types Of Sporting Activities Do You Participate In? Sports And Gym [email or web address] Information not available 02/22/2022 Do You Feel Stressed (tense, Restless, Nervous, Or Anxious, Or Unable To Sleep At Night)? [id number] [email or web address] Information not available 02/22/2022 Do You Use Any Illicit Or Recreational Drugs? No fqedhshnt29 Information not available 02/22/2022 Do You Use Sunscreen Routinely? No [email or web address] Information not available 02/22/2022 Have You Recently Traveled Abroad? No [email or web address] Information not available 02/22/2022 Are You Currently In School? No [email or web address] Information not available 02/22/2022 Do You Have Any Dietary Restrictions? No [email or web address] Information not available 02/22/2022 Do You Or Have You Ever Used Any Other Forms Of Tobacco Or Nicotine? Yes Vape [email or web address] Information not available 02/22/2022 Sex: Male Functional Status Question Answer Note LastModified by Organizat ion Details LastModified Time Do you have difficulty walking or climbing stairs? No [email or web address] Information not available 02/22/2022 Do you have transportation difficulties? No [email or web address] Information not available 02/22/2022 Are you able to walk? YESWOREST [email or web address] Information not available 02/22/2022 Do you have difficulty doing errands alone? No Information not available 02/22/2022 Are you able to care for yourself? Yes [email or web address] Information not available 02/22/2022 Do you have difficulty dressing or bathing? No [email or web address] Information not available 02/22/2022 What is your exercise level? Heavy liiogqvip46 Information not available 02/22/2022 Mental Status Question Answer Note LastModified by Organization D etails LastModified Time Do you have difficulty concentrating, remembering or making decisions? No [email or web address] Information no t available 02/22/2022 Family History Relationship Description Onset Age of this Age Resolved Age Notes LastModified by Organization Details LastModified Time Father Hypertensive disorder [email or web address] Not available 02/08 11:50:19 Father Asthma [email or web address] Not availabl e 02/22/2022 11:50:32 Mother Asthma [email or web address] Not availabl e 02/22/2022 11:50:32 Paternal Grandmother Chronic heart disease Heart valve issue [email or web address] Not available 02/22/2022 11:52:13 Paternal Grandfather Myocardial infarction [email or web address] Not available 11:51:58 Paternal Grandfather Diabetes mellitus [email or web address] Not available 02/08 14:56:55 Medical History Condition Response Anxiety Disorder Y Cardiac Diseases / Disorders Y Eye Disease / Disorders Y Asthma Y Immunizations Vaccine Type Date Status Note Provider Nam e and Address Organization Details Recorded Time DTaP, unspecified formulation 2 completed Luis Fernando Stone null, [place] - [facility] 02/22/2022 12:27:38 DTaP, unspecified formulation 3 completed Luis [place] [facility] 02/22/2022 12:27:46 DTaP, unspecified formulation 3 completed Luis [place] [facility] 02/22/2022 12:27:56 DTaP, unspecified formulation 4 completed Luis [place] [facility] 02/22/2022 12:28:02 DTaP, unspecified formulation 7 completed Luis [place] [facility] 02/22/2022 12:28:09 Hep A, ped/adol, 2 dose 7 completed Luis [place] [facility] 02/22/2022 12:28:25 Hep A, ped/adol, 2 dose 4 completed Luis [place] [facility] 02/22/2022 12:28:32 Hep B, adolescent or pediatric 2 completed Luis [place] [facility] 02/22/2022 12:28:54 Hep B, adolescent or pediatric 3 completed Luis [place] [facility] 02/22/2022 12:29:00 Hib, unspecified formulation 3 completed Luis [place] [facility] 02/22/2022 12:29:16 Hib, unspecified formulation 4 completed Luis [place] [facility] 02/22/2022 12:29:23 Hib-Hep B 2 completed Luis [place] [facility] 02/22/2022 12:29:43 Hib-Hep B 3 completed Luis [place] [facility] 02/22/2022 12:29:51 HPV, unspecified formulation 4 completed Luis [place] [facility] 02/22/2022 12:30:04 HPV, unspecified formulation 5 completed Luis [place] [facility] 02/22/2022 12:30:11 Influenza, split virus, quadrivalent, PF 9 completed Luis [place] [facility] 02/22/2022 12:31:04 influenza, unspecified formulation 9 completed Luis [place] [facility] 02/22/2022 12:32:18 influenza, unspecified formulation 1 completed Luis [place] [facility] 02/22/2022 12:32:23 IPV 2 completed Luis [place] [facility] 02/22/2022 12:32:33 IPV 3 completed Luis Fernando Stone null, [place] - [facility] 02/22/2022 12:32:39 IPV 4 completed Luis Fernando [place] [facility] 02/22/2022 12:32:47 IPV 7 completed Luis [place] [facility] 02/22/2022 12:32:55 meningococcal MCV4, unspecified formulation 4 completed Luis Fernando [place] [facility] 02/22/2022 12:33:18 meningococcal MCV4P 9 completed Luis Fernando [place] [facility] 02/22/2022 12:33:52 MMR 3 completed Luis Fernando Stone null, [facility] 02/22/2022 12:34:04 MMR 7 completed Luis Fernando Stone null, [facility] 02/22/2022 12:34:11 pneumococcal conjugate PCV 7 2 completed Luis Fernando Stone null, [facility] 02/22/2022 12:34:24 pneumococcal conjugate PCV 7 3 completed Luis Fernando Stone null, [facility] 02/22/2022 12:34:53 pneumococcal conjugate PCV 7 3 completed Luis Fernando Stone null, [facility] 02/22/2022 12:35:00 pneumococcal conjugate PCV 7 4 completed Luis Fernando Stone null, [facility] 02/22/2022 12:35:05 Tdap 4 completed Luis Fernando Stone null, [facility] 02/22/2022 12:35:18 varicella 4 completed Luis Fernando Stone null, [facility] 02/22/2022 12:35:31 varicella 7 completed Luis Fernando Stone null, [place] - [facility] 02/22/2022 12:35:42 Past Encounters Encounter ID Performer Location Encounter Start Date Encounter Closed Date Diagnosis/Indication Diagnosis SNOMED-CT Code Diagnosis ICD10 Code Diagnosis Note [id number] Meri Saldana, UMBRELLA FINISHER-BC, PMHNP-BC Main Office [address] [place] [address] 02/22/2022 11:44:59 02/22/2022 12:38:48 Acute bacterial sinusitis 65156126 J01.90 Having significan t sinus pressure and pain. Given Augmentin and Mucinex-D for infection. [id number] Meri Saldana [facility] Main Office [address] [place] [facility] [place] [address] 07/26/2022 09:32:45 07/26/2022 11:53:54 Acute stress disorder 32841136 F43.0 Anxiety 80071488 F41.9 [id number] Meri Saldana [facility] Telemedic ine [address] [place] [facility] [place] [address] 2022 09:29:51 2022 10:44:13 Acute stress disorder 26359220 F43.0 Has not made appointmen t with counselor. Counseled on necessity and importance of such. Anxiety 99231268 F41.9 Continue Lexapro and increased propranolo l.Reports episodes of diarrhea. Counseled on anxiety can play parts of such. Counseled on meeting with counselor. He v/u. Will see back in 2-3 weeks to see how Kg is doing and whether adjustment or change is needed. [id number] Meri Saldana [facility] Telemedic ine [address] [place] [facility] [address] 08/29/2022 09:38:02 08/29/2022 15:18:48 Acute stress disorder 46773530 F43.0 Stress is improving, court situation is going good. No new charges and no evidence has showed to be guilty. Anxiety 46284457 F41.9 Continue Lexapro. Will do four more weeks of Lexapro and if episodes continue will make medication changes. Doing much better with anxiety and related. No new charges and/or related. [id number] Meri Saldana [facility] Telemedic ine [address] [place] [facility] [address] 09/26/2022 12:18:26 09/26/2022 13:21:25 Acute stress disorder 63247614 F43.0 Getting better. Continue Lexapro. Anxiety 49719695 F41.9 Doing much better with anxiety. Denies any sxs and would like to be weaned off Propranolo l.Weaning propranolo l protocol given.Cont inue Lexapro. [id number] Meri Saldana [facility] Telemedic ine [address] [place] [address] 10/25/2022 12:06:06 10/25/2022 14:39:40 Acute stress disorder 27192112 F43.0 Situation has been much better. Doing better. Weaning off medication .F/U 6 months unless worsening symptoms. [id number] Meri Osman Les [facility] Main Office [address] 4 03/20/2023 14:26:16 03/20/2023 15:37:13 Elevated blood-pressure reading without diagnosis of hypertension 327658150 R03.0 Excessive caffeine intake 5390980211 43073 R63.8 [id number] Meri Osman Les [facility] Main Office [address] [place] [address] 08/20/2023 12:14:03 08/20/2023 14:31:20 Active or passive immunization 151078160 Z23 up to date Adult heal th examination 721118009 Z00.00 [id number] Meri Saldana [facility] Main Office [address] [place] [address] 11/24/2023 14:59:35 11/24/2023 19:43:56 Posterior rhinorrhea 14416602 R09.82 Flonase given along with directions on [...] afterward. Serum crea tinine above reference range 871295412 R79.89 Mass of right breast 595 [id number] 5438251 N63.10 Health Concerns Section Related Observation LastModified by Organization Detai ls LastModified Time None Recorded Concern Status LastModified by Organization Details LastModified Time None Recorded Advance Directives Directive N: Payers Encounter Date Sequence Insurance Name Policy Number Policy Jett Covered Member ID Jett Member ID Guarantor Name 09/26/2022 1 [place] Kg Vizcarra [id number] Kg Vizcarra 10/25/2022 1 [facility] (MEDICAID HMO) [id number] Kg Vizcarra [id number] Kg Vizcarra 03/20/2023 1 [facility] (MEDICAID HMO) [id number] Kg Vizcarra [id number] Kg Vizcarra 08/20/2023 1 [place] [id number] Kg Vizcarra [id number] Kg Vizcarra 08/20/2023 2 [place] [employer] Kg Vizcarra [id number] Kg Vizcarra 11/24/2023 1 [place] [id number] Kg Vizcarra [id number] Kg Vizcarra 11/24/2023 2 [place] Kg Vizcarra [id number] Kg Vizcarra Notes Date Note Type Note [...] sxs. Meri ChristyABRAHAM Fall, PMP-ARTUR [address] [place], [address], [facility] 09/26/2022 12:52:24 10/25/2022 text/html Patient Verifica tion [...] Meri Osman ABRAHAM Saldana, JENNY-ARTUR [address] [place], [address], [facility] 10/25/2022 12:44:26 03/20/2023 text/html Elevated BP - Concerned about elevated BP. His father has HTN and then having more stressful episodes. Does not report any EID, blurry vision, dizziness, CP, SOB, or palpitations. Meri ChristyABRAHAM Fall, PMHNP-BC [address] [place], [address], [facility] 03/20/2023 15:06:12 08/20/2023 text/html [...] of hearing Vision:no vision problems Meri Saldana, UMBRELLA FINISHER-BC, PMHNP-BC [address] [place], [address], [facility] 08/20/2023 12:41:13 11/24/2023 text/html [...] against clothes and the related. Meri Saldana, UMBRELLA FINISHER-BC, PMHNP-BC [address] [place], [address], [facility] 11/24/2023 19:55:09
--- OUTSIDE RECORDS SUMMARY | 2025-02-18 07:51 | XMS_ITS | Clinical Summary ---
Author Organization [facility] Address [address] [place] [address] Phone Care Team Providers Care Gas Processing Plant Operator Name Role Phone Unavailable Unavailable Unavailable Reason [...]
--- OUTSIDE RECORDS SUMMARY | 2025-02-18 07:51 | XMS_ITS ---
Care Plan - [facility] Created on: February 18, 2025 CARRIE PEGUERO : 2000 Sex: Male Author Organization [facility] Address [address] [place] [address] Phone Care Team Providers Care Car Wash Attendant Name Role Phone Unavailable Unavailable Unavailable
[2025-02-24 11:38] LABS: Testosterone Free 106.6 pg/mL (35.0-155.0); Testosterone Total 641 ng/dL (250-1100)
== END 2025-02-18 07:48 | disposition home or self-care (01) ==
LOC: ANHLAB 07:49
PROVIDERS: PCP Emergency Medicine; Visit Provider Emergency Medicine
DX: E34.9 Endocrine disorder, unspecified (principal)
CPT/HCPCS: 36415; 84402; 84403

== ENCOUNTER 2025-03-04 12:07 | Emergency (ER) | payer OTHER, SELFPAY ==
--- OUTSIDE RECORDS SUMMARY | 2025-03-04 12:09 | XMS_ITS | Referral Summary ---
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
--- OUTSIDE RECORDS SUMMARY | 2025-03-04 12:09 | XMS_ITS | Clinical Summary ---
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
--- OUTSIDE RECORDS SUMMARY | 2025-03-04 12:10 | XMS_ITS ---
Author Organization [facility] Address [address] [place] [address] Phone Care Team Providers Care Caustic Room Operator Name Role Phone Unavailable Unavailable Unavailable Plan of Treatment No Plan of Treatment Recorded Assessments Includes: Assessments for all patient encounters No Assessments Recorded Medical Equipment - Implanted Devices Includes: Current and historical Devices No Medical Equipment Recorded Medications Administered Includes: Administered Medications in patient's chart No Administered Medications Recorded Results Includes: Results from 03/04/2024 through 03/04/2025 No Results Recorded For Specified Dates History [...]
--- OUTSIDE RECORDS SUMMARY | 2025-03-04 12:10 | XMS_ITS | Clinical Summary ---
Author Organization [facility] Address [address] [place] [address] Phone Care Team Providers Care Net Developer Programmer Name Role Phone Unavailable Unavailable Unavailable Reason [...]
--- OUTSIDE RECORDS SUMMARY | 2025-03-04 12:10 | XMS_ITS ---
Care Plan - [facility] Created on: March 04, 2025 CARRIE PEGUERO : 2000 Sex: Male Author Organization [facility] Address [address] [place] [address] Phone Care Team Providers Care Traffic Ii Manager Name Role Phone Unavailable Unavailable Unavailable
--- OUTSIDE RECORDS SUMMARY | 2025-03-04 12:10 | XMS_ITS | Data Portability ---
[facility] Address [address] [place] [address] Assessment No assessment recorded. Plan of Treatment Reminders Order Date Submit Date Provider Last Modified By Organization Details Last Modified Time Details Appointments None recorded. Lab rapid strep group A, throat 2019 020 [facility] In-Office Order, Internal Use Only DO Not Attach Compendium DO Not Attach Compendium, Do Not Delete/merge, [id number] 11:07:20 [facility] st[facility] A, [facility] Order, Internal Use Only DO Not Attach Compendium DO Not Attach Compendium, Do Not Delete/merge, [id number] 9 10:43:05 rapid strep group A, throat 2018 019 [facility] In-Office Order, Internal Use Only DO Not Attach Compendium DO Not Attach Compendium, Do Not Delete/merge, [id number] 9 11:43:34 Referral None recorded. Procedures None recorded. Surgeries None recorded. Imaging None recorded. Medication Orders fluticasone propionate 50 mcg/actuati on nasal spray,suspe nsion 2019 020 [facility][id number], [address], [place], [place], [id number], 0 15:10:45 Augmentin 875 mg-125 mg tablet 2018 019 [facility] #[id number], [address], [place], [place], [id number], 0 10:48:50 fluticasone propionate 50 mcg/actuati on nasal spray,suspe nsion 2018 019 [id number], [address], [place], [place], [id number], 0 15:10:45 fluticasone propionate 50 mcg/actuati on nasal spray,suspe nsion 2018 019 [facility][id number], [address], [place], [place], [id number], 0 15:10:45 Patient TargetsNo targets recorded. Patient Instructions Encounter Date Encounter Id Patient Instructions Last Modified By Organization Details Last Modified Time 08/25/2019 [id number] Acute Sinusitis in Teens: Care Instructions csu[facility]re Not available 08/25/2019 10:43:05 11/16/2019 [id number] Considering More Physical Activity for Your Child csuhre Not available 11/16/2019 11:07:20 Learning About How to Make Healthy Changes in Your Child's Diet csu[facility]re Not available 11/16/2019 11:07:20 08/03/2020 [id number] nausea and vomiting in teens: care instructions [email or web address] Not available 08/03/2020 15:14:15 Reason for Referral None Reported. Results Created Date Observation Date Name Description Value Unit Range Abnormal Flag Note LastModifiedBy Organization Detail LastModifiedTime 12/30/1912/30/2018 rapid strep group A, throa t Strep negati ve Not Available In-Office Order Internal Use Only DO Not Attach Compendium DO Not Attach Compendium, Do Not Delete/merge, [id number] 12/30/2018 11:19:29 08/25/20 19 08/25/2019 rapid strep group A, throa t Strep negati ve Not Available In-Office Order Internal Use Only DO Not Attach Compendium DO Not Attach Compendium, Do Not Delete/merge, [id number] 08/25/2019 10:17:39 11/16/19 20 11/16/2019 rapid strep group A, throa t Strep negati ve Not Available In-Office Order Internal Use Only DO Not Attach Compendium DO Not Attach Compendium, Do Not Delete/merge, [id number] 11/16/2019 10:51:45 Result Notes None recorded. Problems [...] propionate 50 mcg/actuati on nasal spray,suspe nsion Boyce 1 spray every day by intranasa l [...] mass index (BMI) Body mass index (BMI) [Percentile] Per age and sex Body weight Body temperature Systolic blood pressure Diastolic blood pressure Provider Name and Address Organization Details Last Updated DateTime 9 68 /min 16 /min 179.71 cm 21.9 kg/m2 65 % 88151.1 1 g 97.8 [degF] 128 mm[Hg] 68 mm[Hg] Annika Beatty MA [facility] 9 13:59:55 Date Recorded Heart rate Respiratory rate Body temperature Body height Body mass index (BMI) Body mass index (BMI) [Percentile] Per age and sex Body weight Systolic blood pressure Diastolic blood pressure Provider Name and Address Organization Details Last Updated DateTime 9 64 /min 16 /min 97.6 [degF] 180.34 cm 21.3 kg/m2 57 % 24089.6 3 g 112 mm[Hg] 74 mm[Hg] Johana Fraser MA [facility] 9 11:21:27 Date Recorded Body height Body mass index (BMI) [Percentile] Per age and sex Body mass index (BMI) Body weight Heart rate Respiratory rate Body temperature Systolic blood pressure Diastolic blood pressure Provider Name and Address Organization Details Last Updated DateTime 9 181.61 cm 45 % 20.9 kg/m2 50628.0 4 g 76 /min 16 /min 98.7 [degF] 110 mm[Hg] 78 mm[Hg] Renea millsDAVID [facility] 9 10:12:33 Date Recorded Body temperature Provider Name a ak Address Organization Details Last Updated DateTime 11/16/2019 98.5 [degF] AMBROSIO Brown [facility] 2019 10:47:47 Date Recorded Body height Body mass index (BMI) Body mass index (BMI) [Percentile] Per age and sex Body weight Heart rate Respiratory rate Systolic blood pressure Diastolic blood pressure Provider Name and Address Organization Details Last Updated DateTime 0 180.98 cm 21.5 kg/m2 51 % 01240.8 2 g 84 /min 16 /min 118 mm[Hg] 68 mm[Hg] Johana Fraser MA [facility] 0 10:52:17 Social History Question Answer Notes LastModified by Organizat ion Details LastModified Time Tobacco Smoking Status Never Smoker Johana Fraser MA null, [facility] 11/20/2018 14:04:18 Animal Exposure? Yes Information not available 11/20/2018 What Is Your Level Of Caffeine Consumption? Occasional [email or web address] Information not available 11/20/2018 What Type Of Diet Are You Following? REGULAR Information not available 11/20/2018 Do You Or Have You Ever Used E-cigarettes Or Vape? Never Used Electronic Cigarettes Information not available 11/16/2019 Are There Any Guns Present In Your Home? Yes Locked Up [email or web address] Information not available 11/20/2018 What Is Your Home Situation? Mother Lives With Mom, Sister [email or web address] Information not available 11/20/2018 Do You Use Insect Repellent Routinely? Yes [email or web address] Information not available 11/20/2018 Car Seat Type Or Seat Belt? Seat Belt [email or web address] Information not available 11/20/2018 Parent Involvement? Both Parents Involved [email or web address] Information not available 11/20/2018 Riding In Car Front Seat? Yes [email or web address] Information not available 11/20/2018 What Was The Date Of Your Most Recent Tobacco Screening? 11/16/2019 Information not available 11/16/2019 What Is Your Parents' Marital Status? [email or web address] Information not available 11/20/2018 What Is The Name Of Your School? [email or web address] [facility] [email or web address] Information not available 11/20/2018 Do You Have Any Siblings? 1 Sister [email or web address] Information not available 11/20/2018 Do You Have Smoke And Carbon Monoxide Detectors In Your Home? Yes [email or web address] Information not available 11/20/2018 Are You Passively Exposed To Smoke? Yes [email or web address] Information not available 11/20/2018 Do You Or Have You Ever Used Smokeless Tobacco? Never Used Smokeless Tobacco Information not available 11/16/2019 What Types Of Sporting Activities Do You Participate In? Football, Basketball, Track [email or web address] Information not available 11/20/2018 Do You Use Sunscreen Routinely? Yes [email or web address] Information not available 11/20/2018 Year In School 12 [email or web address] [employer]format[employer] n not available 08/03/2020 Sex: Unknown Functional Status Question Answer Note LastModified by Organization D etails LastModified Time What is your exercise level? Heavy [email or web address] Information not available 11/20/2018 Mental Status None recorded. Family History Relationship Description Onset Age of this Age Resolved Age Notes LastModified by Organization Details LastModified Time Father Asthma Not available 0 11/20/2018 14:04:00 Paternal Grandfather Diabetes mellitus [email or web address] Not available 2018 14:04:12 Medical History Condition [...] 11/20/2018 13:36:21 DTaP, unspecified formulation 7 completed Johana [place] [facility] 11/20/2018 13:36:25 Hib-Hep B 2 completed Joh[place] [facility] 11/20/2018 13:36:34 Hib-Hep B 3 completed Johana [place] [facility] 11/20/2018 13:36:38 Hib, unspecified formulation 3 completed Johana [place] [facility] 11/20/2018 13:36:48 Hib, unspecified formulation 4 completed Johana [place] [facility] 11/20/2018 13:36:53 Hep A, [...] - [facility] 11/20/2018 13:40:41 IPV 2 completed Joh[place] [facility] 11/20/2018 13:40:50 IPV 3 completed Joh[place] [facility] 11/20/2018 13:40:54 IPV 4 completed Joh[place] [facility] 11/20/2018 13:41:01 IPV 7 completed Joh[place] [facility] 11/20/2018 13:41:06 Tdap 4 completed Joh[place] [facility] 11/20/2018 13:41:20 varicella 4 completed Joh[place] [facility] 11/20/2018 13:41:31 varicella 7 completed Joh[place] [facility] 11/20/2018 13:41:35 meningococcal MCV4P 9 completed Not Available [facility] 11/27/2019 02:48:27 Influenza, split virus, quadrivalent, PF 9 completed Not Available [facility] 11/27/2019 02:37:02 Past Encounters Encounter ID Performer Location Encounter Start Date Encounter Closed Date Diagnosis/Indication Diagnosis SNOMED-CT Code Diagnosis ICD10 Code Diagnosis Note [id number] [facility] [address] [place] [place] [address] 11/20/2018 13:41:17 11/23/2018 12:44:01 Well child 157802258 Z00.129 discussed routine adolescent care, safety, school performanc e, healthy weight with diet and exercise, etc [id number] [facility] [address] [place] [id number] 12/30/2018 11:15:30 12/31/2018 10:14:22 Upper respiratory infection 31869119 J06.9 rest, tylenol prn, humidifier , warm salt water gargles, etc [id number] [facility] [address] [place] [address] 08/25/2019 09:53:17 08/26/2019 14:56:19 Acute sinusitis 44077897 J01.90 [id number] [facility] [address] [place] [address] 11/16/2019 10:42:17 11/17/2019 10:04:03 Diet education 68704886 Z71.3 Exercises education, guidance, and counseling 994874549 Z71.82 Upper resp iratory infection 50886013 J06.9 rest, tylenol prn, humidifier , warm salt water gargles, etc [id number] MD Molly Villaseñor (Peds) [address] [place] [address] 08/03/2020 12:11:17 08/04/2020 09:39:50 Vomiting 072149071 R11.10 BRAT diet. likely secondary to food. reassuranc e. Health Concerns Section Related Observation LastModified by Organization Detai ls LastModified Time None Recorded Concern Status LastModified by Organization Details LastModified Time None Recorded Advance Directives Directive None Recorded Payers Encounter Date Sequence Insurance Name Policy Number Policy Jett Covered Member ID Jett Member ID Guarantor Name 11/20/2018 1 [facility] PRIOR TO 05/10/2021 (MEDICAID REPLACEMENT - HMO) Kg Vizcarra [id number] [facility] 12/30/2018 1 [facility] PRIOR TO 05/10/2021 (MEDICAID REPLACEMENT - HMO) Kg Vizcarra [id number] [facility] 08/25/2019 1 [place] [facility] [id number] [facility] 11/16/2019 1 [place] [facility] [address] [facility] [id number] 08/03/2020 1 [place] [facility] [id number] [facility] Notes Date Note Type Note Provider Name a ak Address Organization Details Recorded Time 11/20/2018 text/html No concerns, needing school med form filled out for school for zyrtec and ibuprofen for headaches PRN. Former pt of Dr Randy. Plays baseball. John Rubio MD Attn: Aiden,[address] [facility], [place], [address], [facility] [place] 11/20/2018 14:25:50 12/30/2018 text/html C/o of St with cough and congestion for the past 24 hours. no fever. No abd pain. no v/d. No known sick contacts. John Rubio MD Attn: Aiden,[address] [facility], [place], [address], [facility] [place] 12/30/2018 11:43:52 08/25/2019 text/html C/o of cough and congestion for the past week with ST. no abd pain. no v/d. + headaches John Rubio MD Attn: Aiden,[address] [facility], [place], [address], [facility] [place] 08/25/2019 10:43:22 11/16/2019 text/html c/o cough and congestion for the past [address] No fever. No v/d. No abd pain. c/o mild SOB. John Rubio MD Attn: [facility],[address] [facility], [place], [address], [facility] [place] 11/16/2019 11:07:55 08/03/2020 text/html c/o: mom states patient had fish and pizza last night for dinner- vomited after eating last pm and early this am. Mom thinks patient had food poisoning. Needing note to return to school. NO fever. no diarrhea. seems fine now per mother. no known sick contacts. no recent travel. John Rubio MD Attn: Aiden,[address] [place], [address], [facility] [place] 08/03/2020 15:14:33
--- OUTSIDE RECORDS SUMMARY | 2025-03-04 12:10 | XMS_ITS | Data Portability ---
Author Organization [facility] [employer] Address [address] [place] [address] Assessment Encounter Date Assessment Date Assessment LastModified [...] 4 weeks - telemedicine, sooner if needed [email or web address] Not available 09/26/2022 12:41:29 10/25/2022 10/25/2022 Medication [...] plan. F/U 6 months, sooner if needed [email or web address] Not available 10/25/2022 12:40:43 03/20/2023 03/20/2023 Medication [...] plan. F/U 1 year, sooner if needed [email or web address] Not available 08/20/2023 12:33:00 11/24/2023 11/24/2023 Medication Changes Flonase as directed labs to recheck elevated levels. Mammogram given and along with u/s order for R breast to further evaluate the mass palpated to r/o possible cyst, benign mass, vs possible cancerous mass. Provided patient with ENT Same day information over in [place], [place] to contact and see them as [...] time spent in any separately reportable services. [email or web address] Not available 11/24/2023 19:55:05 Plan of Treatment Reminders Order Date Submit Date Provider Last Modified By Organization Details Last Modified Time Details Appointments None recorded . Lab CBC w/ auto diff 2023 024 [email or web address] [facility], [address] [place] [address], [address], 4 09:01:24 CMP, serum or plasma 2023 024 [facility] [place] [facility], [address] [place] [address], [address], 4 07:30:34 CBC w/ auto diff 2022 023 [facility] [place] [facility], [address] [place], [address], 3 10:56:01 CMP, serum or plasma 2022 023 [email or web address] [place] [facility], [address] [place], [address], 3 11:17:36 TSH, serum or plasma 2022 023 [email or web address], [address] [address] [facility] [place], [address], 3 16:58:38 lipid panel, serum 2022 023 [facility], [address] [address] [facility] [place], [address], 3 11:17:34 magnesiu m, serum or plasma 2022 023 [facility], [address] [place] [address] [place], [address], 3 11:17:35 vitamin B12, serum 2022 023 [email or web address], [address] [place] [address] [place], [address], 3 16:58:38 folate, serum 2022 023 [email or web address], [address] [place] [address] [place], [address], 3 16:58:38 iron, serum 2022 023 [facility], [address] [place] [address], [address], 3 11:17:35 Referral None recorded . Procedures None recorded . Surgeries None recorded . [facility] ([facility] [address] [facility] [place], [address], 4 19:43:25 MAMMO, diagnost ic, digital, unilater al 2023 024 [facility] (Radiology), [address] [facility] , [place], [address], 4 19:43:25 Medication Orders fluticas one propiona te 50 mcg/actu ation nasal spray,valverde spension 2023 024 [facility], [address], [place], [place], [id number], 4 15:57:21 escitalo pram 5 mg tablet [email or web address] [facility], [address], [place], [place], [id number], 3 14:22:32 escitalo pram 10 mg tablet 2021 022 MOHAWK [facility]23469, [address], [place], [place], [id number], 2 12:44:22 Patient TargetsNo targets recorded. Patient Instructions Encounter Date Encounter Id Patient Instructions Last Modified By Organization Details Last Modified Time 03/20/2023 [id number] learning about caffeine [email or web address] Not available 03/20/2023 15:05:20 08/20/2023 [id number] learning about dietary guidelines [email or web address] Not available 08/20/2023 12:33:44 resistance training with free weights: exercises [email or web address] Not available 08/20/2023 12:33:44 Reason for Referral None Reported. Results Created Date Observation Date Name Description Value Unit Range Abnormal Flag Note LastModifiedBy Organization Detail LastModifiedTime 11/25/19 24 11/25/2023 COMPR EHENS ALIREZA METAB OLIC PANEL glucose 95 mg/dL 65-99 normal Fasti ng refer ence inter jorge alberto Not Available [facility] [address] [place], [address], 11/25/2023 07:30:34 11/25/19 24 11/25/2023 COMPR EHENS ALIREZA METAB OLIC PANEL urea nitrogen (BUN) 20 mg/dL 7-25 normal Not Available [address], [address], 11/25/2023 07:30:34 11/25/19 24 11/25/2023 COMPR EHENS ALIREZA METAB OLIC PANEL creatinine 1.02 mg/dL 0.60-1 .24 normal Not Available [address], [address], 11/25/2023 07:30:34 11/25/19 24 11/25/2023 COMPR EHENS ALIREZA METAB OLIC PANEL eGFR 107 mL/mi n/1.7 3m2 > or = 60 normal Not Available [address], [address], 11/25/2023 07:30:34 11/25/19 24 11/25/2023 COMPR EHENS ALIREZA METAB OLIC PANEL BUN/creatini ne ratio SEE NOTE: (calc ) 6-22 Not Repor daniel: BUN and Creat inine are withi n refer ence range . Not Available [address], [address], 11/25/2023 07:30:34 11/25/19 24 11/25/2023 COMPR EHENS ALIREZA METAB OLIC PANEL sodium 138 mmol/ L 135-14 6 normal Not Available [address], [address], 11/25/2023 07:30:34 11/25/19 24 11/25/2023 COMPR EHENS ALIREZA METAB OLIC PANEL potassium 4.0 mmol/ L 3.5-5. 3 normal Not Available [address], [address], 11/25/2023 07:30:34 11/25/19 24 11/25/2023 COMPR EHENS ALIREZA METAB OLIC PANEL chloride 105 mmol/ L 98-110 normal Not Available [address] [place], [address], 11/25/2023 07:30:34 11/25/19 24 11/25/2023 COMPR EHENS ALIREZA METAB OLIC PANEL carbon dioxide 28 mmol/ L 20-32 normal Not Available [facility] [address], [address], 11/25/2023 07:30:34 11/25/19 24 11/25/2023 COMPR EHENS ALIREZA METAB OLIC PANEL calcium 9.4 mg/dL 8.6-10 .3 normal Not Available [facility] [address], [address], 11/25/2023 07:30:34 11/25/19 24 11/25/2023 COMPR EHENS ALIREZA METAB OLIC PANEL protein, total 6.9 g/dL 6.1-8. 1 normal Not Available [address], [address], 11/25/2023 07:30:34 11/25/19 24 11/25/2023 COMPR EHENS ALIREZA METAB OLIC PANEL albumin 4.4 g/dL 3.6-5. 1 normal Not Available [address], [address], 11/25/2023 07:30:34 11/25/19 24 11/25/2023 COMPR EHENS ALIREZA METAB OLIC PANEL globulin 2.5 g/dL_ (calc ) 1.9-3. 7 normal Not Available [facility] [address], [address], 11/25/2023 07:30:34 11/25/19 24 11/25/2023 COMPR EHENS ALIREZA METAB OLIC PANEL albumin/glob ulin ratio 1.8 (calc ) 1.0-2. 5 normal Not Available [facility] [address], [address], 11/25/2023 07:30:34 11/25/19 24 11/25/2023 COMPR EHENS ALIREZA METAB OLIC PANEL bilirubin, total 0.4 mg/dL 0.2-1. 2 normal Not Available [address], [address], 11/25/2023 07:30:34 11/25/19 24 11/25/2023 COMPR EHENS ALIREZA METAB OLIC PANEL alkaline phosphatase 58 U/L 36-130 normal Not Available [facility] [address], [address], 11/25/2023 07:30:34 11/25/19 24 11/25/2023 COMPR EHENS ALIREZA METAB OLIC PANEL AST 11 U/L 10-40 normal Not Available [address], [address], 11/25/2023 07:30:34 11/25/19 24 11/25/2023 COMPR EHENS ALIREZA METAB OLIC PANEL ALT 50 U/L 9-46 high Not Available [address], [address], 11/25/2023 07:30:34 03/20/20 23 03/21/2023 CBC (INCL UDES DIFF/ PLT) white blood cell count 6.9 thous and/u L 3.8-10 .8 normal Not Available [address], [address], 03/21/2023 10:56:01 03/20/20 23 03/21/2023 CBC (INCL UDES DIFF/ PLT) red blood cell count 5.30 idania on/uL 4.20-5 .80 normal Not Available [address], [address], 03/21/2023 10:56:01 03/20/20 23 03/21/2023 CBC (INCL UDES DIFF/ PLT) hemoglobin 16.1 g/dL 13.2-1 7.1 normal Not Available [facility] [address], [address], 03/21/2023 10:56:01 03/20/20 23 03/21/2023 CBC (INCL UDES DIFF/ PLT) hematocrit 48.2 % 38.5-5 0.0 normal Not Available [facility] [address], [address], 03/21/2023 10:56:01 03/20/20 23 03/21/2023 CBC (INCL UDES DIFF/ PLT) MCV 90.9 fL 80.0-1 00.0 normal Not Available [address], [address], 03/21/2023 10:56:01 03/20/20 23 03/21/2023 CBC (INCL UDES DIFF/ PLT) MCH 30.4 pg 27.0-3 3.0 normal Not Available [address], [address], 03/21/2023 10:56:01 03/20/20 23 03/21/2023 CBC (INCL UDES DIFF/ PLT) MCHC 33.4 g/dL 32.0-3 6.0 normal Not Available [address], [address], 03/21/2023 10:56:01 03/20/20 23 03/21/2023 CBC (INCL UDES DIFF/ PLT) RDW 12.0 % 11.0-1 5.0 normal Not Available [facility] [address], [address], 03/21/2023 10:56:01 03/20/20 23 03/21/2023 CBC (INCL UDES DIFF/ PLT) platelet count 302 thous and/u L 140-40 0 normal Not Available [facility] [address], [address], 03/21/2023 10:56:01 03/20/20 23 03/21/2023 CBC (INCL UDES DIFF/ PLT) MPV 9.1 fL 7.5-12 .5 normal Not Available [address], [address], 03/21/2023 10:56:01 03/20/20 23 03/21/2023 CBC (INCL UDES DIFF/ PLT) absolute neutrophils 4706 cells /uL 1500-7 800 normal Not Available [address], [address], 03/21/2023 10:56:01 03/20/20 23 03/21/2023 CBC (INCL UDES DIFF/ PLT) absolute lymphocytes 911 cells /uL 850-39 00 normal Not Available [address], [address], 03/21/2023 10:56:01 03/20/20 23 03/21/2023 CBC (INCL UDES DIFF/ PLT) absolute monocytes 690 cells /uL 200-95 0 normal Not Available [facility] [address], [address], 03/21/2023 10:56:01 03/20/20 23 03/21/2023 CBC (INCL UDES DIFF/ PLT) absolute eosinophils 531 cells /uL 15-500 high Not Available [address], [address], 03/21/2023 10:56:01 03/20/20 23 03/21/2023 CBC (INCL UDES DIFF/ PLT) absolute basophils 62 cells /uL 0-200 normal Not Available [facility] [address], [address], 03/21/2023 10:56:01 03/20/20 23 03/21/2023 CBC (INCL UDES DIFF/ PLT) neutrophils 68.2 % normal Not Available [address] [place], [address], 03/21/2023 10:56:01 03/20/20 23 03/21/2023 CBC (INCL UDES DIFF/ PLT) lymphocytes 13.2 % normal Not Available [facility] [address], [address], 03/21/2023 10:56:01 03/20/20 23 03/21/2023 CBC (INCL UDES DIFF/ PLT) monocytes 10.0 % normal Not Available [facility] [address], [address], 03/21/2023 10:56:01 03/20/20 23 03/21/2023 CBC (INCL UDES DIFF/ PLT) eosinophils 7.7 % normal Not Available [facility] [address], [address], 03/21/2023 10:56:01 03/20/20 23 03/21/2023 CBC (INCL UDES DIFF/ PLT) basophils 0.9 % normal Not Available [facility] [address], [address], 03/21/2023 10:56:01 03/20/20 23 03/21/2023 LIPID PANEL , STAND SAMANTHA cholesterol, total 146 mg/dL <200 normal Not Available [facility] [address], [address], 03/21/2023 16:44:49 03/20/20 23 03/21/2023 LIPID PANEL , STAND SAMANTHA HDL cholesterol 24 mg/dL > or = 40 low Not Available [facility] [address], [address], 03/21/2023 16:44:49 03/20/20 23 03/21/2023 LIPID PANEL , STAND SAMANTHA triglyceride s 106 mg/dL <150 normal Not Available [facility] [address], [address], 03/21/2023 16:44:49 03/20/20 23 03/21/2023 LIPID PANEL [...] 9): 2061- 2068 (http ://ed ucati on.Qu Quartics. com/f aq/FA Q164) Not Available [facility] [address] [address] [place], [address], 03/21/2023 16:44:49 03/20/20 23 03/21/2023 LIPID PANEL , STAND SAMANTHA chol/HDLC ratio 6.1 (calc ) <5.0 high Not Available [facility] [address] [address] [place], [address], 03/21/2023 16:44:49 03/20/20 23 03/21/2023 LIPID PANEL , STAND SAMANTHA non HDL cholesterol 122 mg/dL _(shawna c) <130 normal For patie nts with diabe ishmael plus 1 major ASCVD risk facto r, treat ing to a non-H DL-C goal of <100 mg/dL (LDL- C of <70 mg/dL ) is deisy vaughan optio n. Not Available [facility] [address] [place], [address], 03/21/2023 16:44:49 03/20/20 23 03/21/2023 IRON, TOTAL iron, total 82 mcg/d L 50-195 normal Not Available [facility] [address] [address] [address], [place], [address], 03/21/2023 16:44:49 03/20/20 23 03/21/2023 MAGNE SIUM magnesium 2.0 mg/dL 1.5-2. 5 normal Not Available [address], [address], 03/21/2023 16:44:50 03/20/20 23 03/21/2023 COMPR EHENS ALIREZA METAB OLIC PANEL glucose 94 mg/dL 65-99 normal Fasti ng refer ence inter jorge alberto Not Available [address], [address], 03/21/2023 16:44:50 03/20/20 23 03/21/2023 COMPR EHENS ALIREZA METAB OLIC PANEL urea nitrogen (BUN) 13 mg/dL 7-25 normal Not Available [address], [address], 03/21/2023 16:44:50 03/20/20 23 03/21/2023 COMPR EHENS ALIREZA METAB OLIC PANEL creatinine 1.49 mg/dL 0.60-1 .24 high Not Available [address], [address], 03/21/2023 16:44:50 03/20/20 23 03/21/2023 COMPR EHENS [...] kdoqi /gfr% 5Fcal culat or Not Available [address], [address], 03/21/2023 16:44:50 03/20/20 23 03/21/2023 COMPR EHENS ALIREZA METAB OLIC PANEL BUN/creatini ne ratio 9 (calc ) 6-22 normal Not Available [address], [address], 03/21/2023 16:44:50 03/20/20 23 03/21/2023 COMPR EHENS ALIREZA METAB OLIC PANEL sodium 142 mmol/ L 135-14 6 normal Not Available [address], [address], 03/21/2023 16:44:50 03/20/20 23 03/21/2023 COMPR EHENS ALIREZA METAB OLIC PANEL potassium 4.0 mmol/ L 3.5-5. 3 normal Not Available [address], [address], 03/21/2023 16:44:50 03/20/20 23 03/21/2023 COMPR EHENS ALIREZA METAB OLIC PANEL chloride 104 mmol/ L 98-110 normal Not Available [address], [address], 03/21/2023 16:44:50 03/20/20 23 03/21/2023 COMPR EHENS ALIREZA METAB OLIC PANEL carbon dioxide 28 mmol/ L 20-32 normal Not Available [address], [address], 03/21/2023 16:44:50 03/20/20 23 03/21/2023 COMPR EHENS ALIREZA METAB OLIC PANEL calcium 9.3 mg/dL 8.6-10 .3 normal Not Available [address], [address], 03/21/2023 16:44:50 03/20/20 23 03/21/2023 COMPR EHENS ALIREZA METAB OLIC PANEL protein, total 7.3 g/dL 6.1-8. 1 normal Not Available [address] [place], [address], 03/21/2023 16:44:50 03/20/20 23 03/21/2023 COMPR EHENS ALIREZA METAB OLIC PANEL albumin 4.2 g/dL 3.6-5. 1 normal Not Available [address], [address], 03/21/2023 16:44:50 03/20/20 23 03/21/2023 COMPR EHENS ALIREZA METAB OLIC PANEL globulin 3.1 g/dL_ (calc ) 1.9-3. 7 normal Not Available [facility] [address], [address], 03/21/2023 16:44:50 03/20/20 23 03/21/2023 COMPR EHENS ALIREZA METAB OLIC PANEL albumin/glob ulin ratio 1.4 (calc ) 1.0-2. 5 normal Not Available [address], [address], 03/21/2023 16:44:50 03/20/20 23 03/21/2023 COMPR EHENS ALIREZA METAB OLIC PANEL bilirubin, total 0.6 mg/dL 0.2-1. 2 normal Not Available [address], [address], 03/21/2023 16:44:50 03/20/20 23 03/21/2023 COMPR EHENS ALIREZA METAB OLIC PANEL alkaline phosphatase 49 U/L 36-130 normal Not Available [facility] [address] [address] [place], [address], 03/21/2023 16:44:50 03/20/20 23 03/21/2023 COMPR EHENS ALIREZA METAB OLIC PANEL AST 8 U/L 10-40 low Not Available [facility] [address], [address], 03/21/2023 16:44:50 03/20/20 23 03/21/2023 COMPR EHENS ALIREZA METAB OLIC PANEL ALT 20 U/L 9-46 normal Not Available [address], [address], 03/21/2023 16:44:50 03/20/20 23 03/22/2023 FOLAT E, SERUM folate, serum 9.5 NG/mL normal Refer ence Range Low: <3.4 Borde rline : 3.4-5 .4 Tanisha l: >5.4 Not Available [address] [address] [place], [address], 03/22/2023 05:28:50 03/20/20 23 03/22/2023 VITAM IN B12 vitamin B12 647 pg/mL 200-11 00 normal Not Available [address], [address], 03/22/2023 05:28:51 03/20/20 23 03/22/2023 TSH W/REF LUCILA TO FT4 TSH w/reflex to FT4 1.35 mIU/L 0.40-4 .50 normal Not Available [address], [address], 03/22/2023 03:50:21 10/18/20 23 10/18/2023 XR, chest , 2 view No observ ation record ed. [address] [place], [address], 10/20/2023 09:52:17 01/08/20 24 01/08/2024 MAMMO , diagn ostic , digit al, bilat eral No observ ation record ed. [email or web address] [address] [place], [address], 02/06/2024 10:20:05 Result Notes None recorded. Problems Name Problem SNOMED Code Status Onset Date Resolution Date Notes Provider Name and Address Organization Details Recorded Time Anxiety 80880380 Active 2021 Crystal L. Stone, NUTRITION SERVICES WORKER-BC, PMHNP-BC [address] , [place] [place], [address], [facility] 4 15:40:50 Acute stress disorder 25283077 Active 2021 ORLANDO MichaelP-BC, PMHNP-BC [address] , [facility] [place], [address], [facility] 4 15:40:50 Elevated blood-pressure reading without diagnosis of hypertension 842725679 Active 2022 Meri Saldana NUTRITION SERVICES WORKER-BC, PMHNP-BC [address] , [facility] [place], [address], [facility] 4 15:40:50 Problem Notes None recorded. Procedures Surgical History Date Name Laterality Status Provider Name and Address Organization Details Recorded Time Unlisted px dentalvlr strux completed Felice Nick [facility] 02/22/2022 16:39:15 Imaging Results Imaging Date Name Status LastModified by Organiz ation Details LastModified Time 10/18/2023 XR, chest, 2 view completed [address] [place], [address], 10/20/2023 09:52:17 01/08/2024 MAMMO, diagnostic, digital, bilateral completed [email or web address] [address] [place], [address], 02/06/2024 10:20:05 Procedure Notes None recorded. Medical [...] 09/26/2022 0 Alicia VALDES - Mahesh Babb [facility] 09/26/2022 12:21:30 Date Recorded Body height Body [...] 3 180.34 cm 77 % 26.1 kg/m2 94355.2 1 g 89 /min 20 /min 98 % 98 % 0 98.1 [degF] 138 mm[Hg] 80 mm[Hg] Patricia Hernandez [place] 3 14:31:11 Date Recorded Systolic blood pressure Diastolic blood pressure Provider Name and Address Organization Details Last Updated DateTime 03/20/2023 122 mm[Hg] 78 mm[Hg] Meri Saldana NUTRITION SERVICES WORKER-BC, PMHNP-BC [address] [place], [address], [facility] 03/20/2023 14:40:27 Date Recorded Body height Heart [...] 97 % 98.3 [degF] 0 24.3 kg/m2 08888.8 7 g 120 mm[Hg] 78 mm[Hg] Torin Albright [facility] 3 12:14:50 Date Recorded Body height [...] 0 136 mm[Hg] 78 mm[Hg] Torin Albright [facility] 4 15:05:21 Date Recorded Body mass index (BMI) Body weight Provider Name and Address Organization Details Last Updated DateTime 11/24/2023 22.5 kg/m2 07049.37 g LES Michael-BC, PMHNP-BC [address] [place], [address], [facility] 11/24/2023 17:52:19 Social History Question Answer Notes LastModified by Organizat ion Details LastModified Time Tobacco Smoking Status Never Smoker Ramadangelo Nick [facility] [place] 02/22/2022 11:54:33 Do You Have An Advance Directive? No [email or web address] Information not available 02/22/2022 What Is Your Level Of Alcohol Consumption? Occasional [email or web address] Information not available 02/22/2022 How Many Years Have You Consumed Alcohol? 1 [email or web address] Information not available 02/22/2022 Are You Currently Sexually Active With Anyone Who Has Traveled (within The Last 12 Weeks) To A Zika-affected Area? No [email or web address] Information not available 02/22/2022 Do You Wear A Helmet When Biking? Yes Information not available 02/22/2022 Are You Blind Or Do You Have Difficulty Seeing? No [email or web address] Information not available 02/22/2022 What Is Your Level Of Caffeine Consumption? Moderate Pre Workout [email or web address] Information not available 02/22/2022 What Type Of Electric Welder Do You Use? None [email or web address] Information not available 02/22/2022 What Is Your Code Status? Full Code Information not available 02/22/2022 In The 14 Days Before Symptom Onset, Have You Had Close Contact With A Laboratory-confir med COVID-19 While That Case Was Ill? No [email or web address] Information not available 02/22/2022 In The 14 Days Before Symptom Onset, Have You Had Close Contact With A Person Who Is Under Investigation For COVID-19 While That Person Was Ill? No [email or web address] Information not available 02/22/2022 Have You Been To An Area Known To Be High Risk For COVID-19? No [email or web address] Information not available 02/22/2022 Are You Currently Employed? Yes [email or web address] Information not available 02/22/2022 Are You Deaf Or Do You Have Serious Difficulty Hearing? No [email or web address] Information not available 02/22/2022 What Type Of Diet Are You Following? REGULAR [email or web address] Information not available 02/22/2022 Have You Processed Blood Or Body Fluids From An Ebola Virus Disease Patient Without Appropriate PPE? No [email or web address] Information not available 02/22/2022 Do You Reside In Or Have You Traveled To An Area Where Ebola Virus Transmission Is Active? No [email or web address] Information not available 02/22/2022 Do You Or Have You Ever Used E-cigarettes Or Vape? Current User Of Electronic Cigarettes [email or web address] Information not available 02/22/2022 What Is The Highest Grade Or Level Of School You Have Completed Or The Highest Degree You Have Received? 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 6 [email or web address] Information not available 02/22/2022 Have There Been Any Changes To Your Family Or Social Situation? No [email or web address] Information no t available 02/22/2022 What Is The Fluoride Status Of Your Home? Unknown [email or web address] Information not available 02/22/2022 Are There Any Guns Present In Your Home? Yes [email or web address] Information not available 02/22/2022 Which Of Your Hands Is Dominant? Right [email or web address] Information not available 02/22/2022 Have You Recently Or Are You Planning To Travel To An Area With Zika Virus? No [email or web address] Information not available 02/22/2022 Do You Use Insect Repellent Routinely? No [email or web address] Information not available 02/22/2022 Do You Have A Medical Power Of Peanut Shaker? No [email or web address] Information not available 02/22/2022 What Was The Date Of Your Most Recent Tobacco Screening? 11/24/2023 [email or web address] Information not available 11/24/2023 How Many Children Do You Have? 0 [email or web address] Information not available 02/22/2022 Have You Ever Been Counseled For Unhealthy Alcohol Use? No [email or web address] Information not available 11/24/2023 Do You Have Any Pets? Yes [email or web address] Information not available 02/22/2022 Do You Use Protection During Sex? Usually [email or web address] Information not available 02/22/2022 What Is Your Relationship Status? Single Information not available 02/22/2022 Do You Use Your Seat Belt Or Car Seat Routinely? Yes [email or web address] Information not available 02/22/2022 Are You Sexually Active? Yes [email or web address] Information not available 02/22/2022 Do You Have Smoke And Carbon Monoxide Detectors In Your Home? Yes [email or web address] Information not available 02/22/2022 Are You Passively Exposed To Smoke? Yes [email or web address] Information no t available 02/22/2022 Do You Or Have You Ever Used Smokeless Tobacco? Never Used Smokeless Tobacco [email or web address] Information not available 02/22/2022 Do You Participate In Social Media? Yes [email or web address] Information not available 11/24/2023 What Types Of Sporting Activities Do You Participate In? Sports And Gym [email or web address] Information not available 02/22/2022 Do You Feel Stressed (tense, Restless, Nervous, Or Anxious, Or Unable To Sleep At Night)? CA2173-5 [email or web address] Information not available 02/22/2022 Do You Use Any Illicit Or Recreational Drugs? No [email or web address] Information not available 02/22/2022 Do You Use Sunscreen Routinely? No [email or web address] Information not available 02/22/2022 Have You Recently Traveled Abroad? No [email or web address] Information not available 02/22/2022 Are You Currently In School? No [email or web address] Information not available 02/22/2022 Do You Have Any Dietary Restrictions? No [email or web address] Information not available 02/22/2022 Do You Or Have You Ever Used Any Other Forms Of Tobacco Or Nicotine? Yes Vape [email or web address] Information not available 02/22/2022 Sex: Male Functional Status Question Answer Note LastModified by Organizat ion Details LastModified Time Do you have difficulty walking or climbing stairs? No [email or web address] Information not available 02/22/2022 Do you have transportation difficulties? No [email or web address] Information not available 02/22/2022 Are you able to walk? YESWOREST [email or web address] Information not available 02/22/2022 Do you have difficulty doing errands alone? No [email or web address] Information not available 02/22/2022 Are you able to care for yourself? Yes [email or web address] Information not available 02/22/2022 Do you have difficulty dressing or bathing? No [email or web address] Information not available 02/22/2022 What is your exercise level? Heavy [email or web address] Information not available 02/22/2022 Mental Status Question Answer Note LastModified by Organization D etails LastModified Time Do you have difficulty concentrating, remembering or making decisions? No [email or web address] Information no t available 02/22/2022 Family History Relationship Description Onset Age of this Age Resolved Age Notes LastModified by Organization Details LastModified Time Father Hypertensive disorder [email or web address] Not available 02/08 11:50:19 Father Asthma [email or web address] Not availabl e 02/22/2022 11:50:32 Mother Asthma [email or web address] Not availabl e 02/22/2022 11:50:32 Paternal Grandmother Chronic heart disease Heart valve issue Not available 02/22/2022 11:52:13 Paternal Grandfather Myocardial infarction [email or web address] Not available 11:51:58 Paternal Grandfather Diabetes mellitus [email or web address] Not available 02/08 14:56:55 Medical History Condition Response Anxiety Disorder Y Eye Disease / Disorders Y Cardiac Diseases / Disorders Y Asthma Y Immunizations Vaccine Type Date Status Note Provider Nam e and Address Organization Details Recorded Time DTaP, unspecified formulation 2 completed Luis Fernando [place] null, [place] - [facility] 02/22/2022 12:27:38 DTaP, unspecified formulation 3 completed Luis [place] [facility] 02/22/2022 12:27:46 DTaP, unspecified formulation 3 completed Luis [place] [facility] 02/22/2022 12:27:56 DTaP, unspecified formulation 4 completed Luis [place] [facility] 02/22/2022 12:28:02 DTaP, unspecified formulation 7 completed Luis [place] [facility] 02/22/2022 12:28:09 Hep A, ped/adol, 2 dose 7 completed Luis [place] [facility] 02/22/2022 12:28:25 Hep A, ped/adol, 2 dose 4 completed Luis [place] [facility] 02/22/2022 12:28:32 Hep B, adolescent or pediatric 2 completed Luis [place] [facility] 02/22/2022 12:28:54 Hep B, adolescent or pediatric 3 completed Luis [place] [facility] 02/22/2022 12:29:00 Hib, unspecified formulation 3 completed Luis [place] [facility] 02/22/2022 12:29:16 Hib, unspecified formulation 4 completed Luis [place] [facility] 02/22/2022 12:29:23 Hib-Hep B 2 completed Luis [place] [facility] 02/22/2022 12:29:43 Hib-Hep B 3 completed Luis [place] [facility] 02/22/2022 12:29:51 HPV, unspecified formulation 4 completed Luis [place] [facility] 02/22/2022 12:30:04 HPV, unspecified formulation 5 completed Luis [place] [facility] 02/22/2022 12:30:11 Influenza, split virus, quadrivalent, PF 9 completed Luis [place] [facility] 02/22/2022 12:31:04 influenza, unspecified formulation 9 completed Luis [place] [facility] 02/22/2022 12:32:18 influenza, unspecified formulation 1 completed Luis [place] [facility] 02/22/2022 12:32:23 IPV 2 completed Luis [place] [facility] 02/22/2022 12:32:33 IPV 3 completed Luis Fernando Stone null, [facility] 02/22/2022 12:32:39 IPV 4 completed Luis Fernando Stone null, [facility] 02/22/2022 12:32:47 IPV 7 completed Luis Fernando Stone null, [facility] 02/22/2022 12:32:55 meningococcal MCV4, unspecified formulation 4 completed Luis Fernando Stone null, [facility] 02/22/2022 12:33:18 meningococcal MCV4P 9 completed Luis Fernando Stone null, [facility] 02/22/2022 12:33:52 MMR 3 completed Luis Fernando Stone null, [facility] 02/22/2022 12:34:04 MMR 7 completed Luis Fernando Stone null, [facility] 02/22/2022 12:34:11 pneumococcal conjugate PCV 7 2 completed Luis Fernando Stone null, [facility] 02/22/2022 12:34:24 pneumococcal conjugate PCV 7 3 completed Luis Fernando Stone null, [facility] 02/22/2022 12:34:53 pneumococcal conjugate PCV 7 3 completed Luis Fernando Stone null, [facility] 02/22/2022 12:35:00 pneumococcal conjugate PCV 7 4 completed Luis Fernando Stone null, [facility] 02/22/2022 12:35:05 Tdap 4 completed Luis Fernando Stone null, [facility] 02/22/2022 12:35:18 varicella 4 completed Luis Fernando Stone null, [facility] 02/22/2022 12:35:31 varicella 7 completed Luis Fernando Stone null, [facility] 02/22/2022 12:35:42 Past Encounters Encounter ID Performer Location Encounter Start Date Encounter Closed Date Diagnosis/Indication Diagnosis SNOMED-CT Code Diagnosis ICD10 Code Diagnosis Note [id number] Meri Saldana, NUTRITION SERVICES WORKER-BC, PMHNP-ARTUR Main Office [address] [place] [address] 02/22/2022 11:44:59 02/22/2022 12:38:48 Acute bacterial sinusitis 14713202 J01.90 Having significan t sinus pressure and pain. Given Augmentin and Mucinex-D for infection. [id number] Meri Saldana [facility] Main Office [address] [place] [address] 07/26/2022 09:32:45 07/26/2022 11:53:54 Acute stress disorder 48632133 F43.0 Anxiety 44231042 F41.9 [id number] Meri Saldana [facility] Telemedic ine [address] [place] [address] 2022 09:29:51 2022 10:44:13 Acute stress disorder 86423617 F43.0 Has not made appointmen t with counselor. Counseled on necessity and importance of such. Anxiety 97302575 F41.9 Continue Lexapro and increased propranolo l.Reports episodes of diarrhea. Counseled on anxiety can play parts of such. Counseled on meeting with counselor. He v/u. Will see back in 2-3 weeks to see how Kg is doing and whether adjustment or change is needed. [id number] Meri Saldana [facility] Telemed[facility] in[facility] [address] [place] [facility] [place] [address] 08/29/2022 09:38:02 08/29/2022 15:18:48 Acute stress disorder 00989847 F43.0 Stress is improving, court situation is going good. No new charges and no evidence has showed to be guilty. Anxiety 04524442 F41.9 Continue Lexapro. Will do four more weeks of Lexapro and if episodes continue will make medication changes. Doing much better with anxiety and related. No new charges and/or related. [id number] Meri Saldana [facility] Tele[facility] in[facility] [address] [facility] [place] [address] 09/26/2022 12:18:26 09/26/2022 13:21:25 Acute stress disorder 96222320 F43.0 Getting better. Continue Lexapro. Anxiety 97675194 F41.9 Doing much better with anxiety. Denies any sxs and would like to be weaned off Propranolo l.Weaning propranolo l protocol given.Cont inue Lexapro. [id number] Meri Saldana [facility] Tele[facility] in[facility] [address] [place] [address] 10/25/2022 12:06:06 10/25/2022 14:39:40 Acute stress disorder 06381266 F43.0 Situation has been much better. Doing better. Weaning off medication .F/U 6 months unless worsening symptoms. [id number] Meri Osman Les [facility] Main Office [address] 4 03/20/2023 14:26:16 03/20/2023 15:37:13 Elevated blood-pressure reading without diagnosis of hypertension 387957902 R03.0 Excessive caffeine intake 2910525256 50760 R63.8 [id number] Meri Osman Les [facility] Main Office [address] [place] [address] 08/20/2023 12:14:03 08/20/2023 14:31:20 Active or passive immunization 723342403 Z23 up to date Adult heal th examination 486101505 Z00.00 [id number] Meri Osman Les [facility] Main Office [address] [place] [address] 11/24/2023 14:59:35 11/24/2023 19:43:56 Posterior rhinorrhea 23867619 R09.82 Flonase given along with directions on [...] afterward. Serum crea tinine above reference range 502677860 R79.89 Mass of right breast 117 [id number] 6174463 N63.10 Health Concerns Section Related Observation LastModified by Organization Detai ls LastModified Time None Recorded Concern Status LastModified by Organization Details LastModified Time None Recorded Advance Directives Directive N: Payers Encounter Date Sequence Insurance Name Policy Number Policy Jett Covered Member ID Jett Member ID Guarantor Name 09/26/2022 1 [place] Kg Vizcarra [id number] Kg Vizcarra 10/25/2022 1 [facility] (MEDICAID O) [id number] Kg Vizcarra [id number] Kg Vizcarra 03/20/2023 1 [facility] (MEDICAID HMO) [id number] Kg Vizcarra [id number] Kg Vizcarra 08/20/2023 1 [place] [id number] Kg Vizcarra [id number] Kg Vizcarra 08/20/2023 2 [place] [employer] [employer] Kg Vizcarra [id number] Kg Vizcarra 11/24/2023 1 [place] [id number] Kg Vizcarra [id number] Kg Vizcarra 11/24/2023 2 [place] Kg Vizcarra [id number] Kg Vizcarra Notes Date Note Type Note [...] SI/HI. Reports decreasing sxs. Meri ChristyABRAHAM Fall, PMHNP-BC [address] [place], [address], [facility] 09/26/2022 12:52:24 10/25/2022 text/html Patient Verifica tion [...] weaning off medication. Meri Osman ABRAHAM Saldana, EMERSONP-[facility]UR [address] [place], [address], [facility] 10/25/2022 12:44:26 03/20/2023 text/html Elevated BP - Concerned about elevated BP. His father has HTN and then having more stressful episodes. Does not report any EID, blurry vision, dizziness, CP, SOB, or palpitations. Meri ChristyABRAHAM Fall, PMHNP-BC [address] [place], [address], [facility] 03/20/2023 15:06:12 08/20/2023 text/html [...] of hearing Vision:no vision problems Meri Saldana, NUTRITION SERVICES WORKER-BC, PMHNP-BC [address] [place], [address], [facility] 08/20/2023 12:41:13 11/24/2023 text/html [...] against clothes and the related. Meri Saldana, NUTRITION SERVICES WORKER-BC, PMHNP-BC [address] [place], [address], [facility] 11/24/2023 19:55:09"
[2025-03-04 12:11] VITALS: BP 128/89; PULSE 73; RESP 16; TEMP 36.9; O2SAT 100
--- OUTSIDE RECORDS SUMMARY | 2025-03-04 12:11 | XMS_ITS ---
Care Plan - [facility] Created on: March 04, 2025 CARRIE PEGUERO : 2000 Sex: Male Author Organization [facility] Address [address] [place] [address] Phone Care Team Providers Care Tester Armature Or Fields Name Role Phone Unavailable Unavailable Unavailable
--- OUTSIDE RECORDS SUMMARY | 2025-03-04 12:11 | XMS_ITS ---
Author Organization [facility] Address [address] [place] [address] Phone Care Team Providers Care Director Property Name Role Phone Unavailable Unavailable Unavailable Plan [...]
--- OUTSIDE RECORDS SUMMARY | 2025-03-04 12:11 | XMS_ITS | Clinical Summary ---
Author Organization [facility] Address [address] [place] [address] Phone Care Team Providers Care Final Assembler Boat Name Role Phone Unavailable Unavailable Unavailable Reason [...]
--- NOTE | 2025-03-04 12:16 | ED_ITS ---
HPI - Skin/Abscess/Foreign Bdy General Chief complaint: Skin/Abscess/Foreign Body Stated complaint: poison codi Time Seen by Provider: 03/04/25 12:15 Source: patient Mode of arrival: ambulatory Limitations: no limitations History of Present Illness HPI narrative: Kg is a 24-year-old male patient presenting to the clinic today with complaints of possible poison codi to his left arm and near his right eye. He reports he 1st noticed the rash last night. Rash is itchy. States he believes he got into some poison codi yesterday. Related Data Allergies Allergy/AdvReac Type Severity Reaction Status Date / Time No Known Allergies Allergy Verified 03/04/25 12:14 Review of Systems Review of Systems: Pertinent positives per HPI. Patient denies any fever, chills, headache, visual changes, dizziness, cough, runny nose, sore throat, shortness of breath, chest pain, palpitations, nausea, vomiting, diarrhea, constipation, abdominal pain, or any urinary issues. [facility] Past Medical History Medical History Asthma Hx of migraines Orbital fracture right Seasonal allergies Surgical History Surgical History No pertinent past surgical history Family History Family History Mother Family history non-contributory Social History Social History Smoking status: Current every day smoker Tobacco type: e-cigarettes/vaping Alcohol intake: current Drinks per week: 3 Alcohol use details: beer Substance use: never Do You Feel Safe in your Home?: Yes Lack of Transportation: No Lack of Food: Never True Current Housing: I Have Housing Concerned About Future Housing: No Difficulty Paying Gas/Electric Bills: No Difficulty Paying for Meds: No Currently Unemployed: No Education: High School Diploma/GED Difficulty w/ Childcare or Family Care: No Living arrangements: with family Gender identity (if verbalized by the patient): Male Comments At the time of my signature, I reviewed and agree with the nursing past medical, surgical, social, and family history. There is no relevant family history pertinent to the patient complaint. Exam Narrative: General: Well-developed, well nourished, in no apparent distress Head: Normocephalic, atraumatic. Cardio: Regular rate and rhythm, s1 and s2 normal, no murmur appreciated. Resp: Clear to auscultation bilaterally, no rhonchi, rales, wheezing or rubs. Integumentary: [place], warm, and dry, intact without lesion red, raised, blistered rash to the left arm and on his face near his left eye Course Course Emergency Course: Portions of this record may have been created with voice recognition software. Level of Care: Express Care Visit Vital Signs Vital signs: Vital Signs Temperature 36.9 C 03/04/25 12:11 Pulse Rate 73 03/04/25 12:11 Respiratory Rate 16 03/04/25 12:11 Blood Pressure 128/89 03/04/25 12:11 Pulse Oximetry 100 03/04/25 12:11 Oxygen Delivery Room Air 03/04/25 12:11 Temperature 36.9 C 03/04/25 12:11 Pulse Rate 73 03/04/25 12:11 Respiratory Rate 16 03/04/25 12:11 Blood Pressure 128/89 03/04/25 12:11 Pulse Oximetry 100 03/04/25 12:11 Oxygen Delivery Room Air 03/04/25 12:11 Vital signs reviewed MDM - Skin/Abscess/Foreign Bdy MDM Narrative Medical decision making narrative: At the time of visit patient is resting comfortably on the exam table. Patient appears to be nontoxic. Medications: Dexamethasone 10 mg IM given in the clinic today. Plan: I suspect patient has poison codi dermatitis. Prescription for 10 day taper dose of prednisone and triamcinolone cream was sent to the pharmacy. Supportive measures were discussed with the patient and they voiced understanding discharge instructions and agrees to treatment plan. Return precautions reviewed Differential Diagnosis Differential diagnosis: Likely abscess of skin or subcutaneous tissue, viral exanthem, dermatophytosis, urticaria, herpes zoster, allergic reaction to drug, cellulitis, eczema, insect bites, impetigo and contact dermatitis Discharge Plan Discharge Clinical Impression: Contact dermatitis due to poison codi Patient Disposition: Home Condition: Stable Instructions: Antibiotic Form, Poison Codi (ED) Additional Instructions: Dexamethasone 10 mg IM given in the clinic today Apply triamcinolone cream as directed Take prednisone as directed-start on March 05, 2025 Avoid hot showers May apply calamine lotion to rash Avoid scratching as this can cause a secondary infection. May take benadryl 25-50mg every 6 hours as needed for itching. Follow up with your PCP in 3-5 days if symptoms persist or sooner if they worsen Go to the Emergency Room if symptoms worsen- fever, rash spreading with treatment, shortness of breath, tongue swelling, drooling, or chest pain Patient Language: Arabic Prescriptions: New prednisone 10 mg tablet 10 mg PO DAILY Qty: 30 0RF Rx Instructions: 60mg po daily on day 1, 40mg po daily on days 2-4, 30mg po daily on days 5-6, 20mg po daily on days 7-8, 10mg po daily on days 9-10 triamcinolone acetonide 0.1 % cream 1 applic topical BID 7 Days Qty: 30 0RF Follow-up/Referrals: Otis Rhodes MD [Primary Care Provider] - Time of Disposition: 12:19 Quality NIHSS Nursing Documentation ED NIHSS nursing documentation: reviewed/agree
[2025-03-04] MEDS: dexAMETHasone SOD PHOS INJ 10 MG/ML 1 ML VIAL IM (12:24)
== END 2025-03-04 12:46 | disposition home or self-care (01) ==
PROVIDERS: Emergency Provider Nurse Practitioner Family; PCP Emergency Medicine
DX: L23.7 Allergic contact dermatitis due to plants, except food (principal); F17.290 Nicotine dependence, other tobacco product, uncomplicated
CPT/HCPCS: 96372; 99213; G0463; J1100